=== PATIENT | male | born 1955 | race Caucasian/White ===

== ENCOUNTER → 2016-12-04 | Outpatient (CLI) | payer BC ==
[~2016-12-04] MED LIST: ASPI-558 PO; ATOR20TA PO; FURO40TA5 PO; LISI2.5T2 PO; METO25TA6 PO; PHEN-850 PO; POTA20TA10 PO; SERT-88 PO; TRIA15CR3 TOP; WARF3TAB6 PO; WARF4TAB6 PO
--- NOTE | 2016-12-04 16:10 | DI ---
INDICATION: ITS.REASON: R05 COUGH PROCEDURE: CHEST 2-VIEWS UPRIGHT (PA \T\ LAT) Encounter: Initial COMPARISON: April 14, 2016 FINDINGS: The lungs are clear without evidence of focal abnormal airspace opacity. There is no pleural effusion or pneumothorax. The heart size, mediastinal contours and pulmonary vascularity are stable with prior CABG, cardiac valve replacement and left cardiac pacemaker defibrillator. Metallic foreign bodies again noted in the soft tissues of the neck. IMPRESSION: Stable chest without acute cardiopulmonary disease. .
== END ==
LOC: IMA 15:39
PROVIDERS: ATTEND Family Medicine
DX: R05 Cough (principal)

== ENCOUNTER 2017-01-06 14:47 | Emergency (ER) | payer BC ==
[~2017-01-06] VITALS: Ht 177.8 cm; Wt 136.1 kg
[2017-01-06 14:50] VITALS: Ht 177.8 cm; Wt 136.1 kg
--- OUTSIDE RECORDS SUMMARY | 2017-01-06 14:51 | XMS REPORT | Referral Summary ---
Author Author [facility] Organization [facility] Address Unknown Phone Unavailable Care Team Providers Care Lead Recreation Assistant Name Role Phone Yfn Green Primary Care Physician [phone] Encounter VC Date(s): 05/26/15 - 05/26/15 [facility] [address] [place] [address] [place] [id number]- Discharge Disposition: 01-Home or Self Care Attending Physician: Deshaun Oliver MD Admitting Physician: Deshaun Oliver MD Vital Signs No data available for this section Problem List Condition Effective Dates Status Health Status Informant Benign essential Active hypertension (disorder)(Confirmed ) Pacemaker/defibr(Con 03/2007 Active firmed) Contusion of knee, Active left(Confirmed) Coronary Active arteriosclerosis (disorder)(Confirmed ) CAD (coronary artery Active disease)(Confirmed) History of TIA right Active side weakness(Confirmed) Hypertension(Confirm Active ed) Hypertrophic Active cardiomyopathy(Confi rmed) Patellar bursitis of Active left knee(Confirmed) Mitral valve 2009 Active disease(Confirmed) Obesity(Confirmed) Active patient Staph 2007 Active infection/pacemaker defib(Confirmed) Tobacco Active patient user(Confirmed) Allergies, Adverse Reactions, Alerts Substance Reaction Severity Status niacin SOA Active Medications aspirin 81 mg oral tablet 1 tabs, Oral, Daily, # 90 tabs, 0 Refill(s) Start Date: 07/08/14 Status: Ordered Claritin 10 mg oral tablet 10 mg 1 tabs, Oral, Daily, # 30 tabs, 0 Refill(s), Pharmacy: [facility] # [id number], 1 tabs Oral Daily Start Date: 06/11/15 Status: Ordered fenofibrate 48 mg oral tablet 1 caps, Oral, Daily, # 90 caps, 0 Refill(s) Start Date: 07/08/14 Status: Ordered ferrous sulfate 325 mg (65 mg elemental iron) oral tablet tabs, Oral, Daily, 0 Refill(s) Start Date: 07/08/14 Status: Ordered Fish Oil 1000 mg oral capsule 1 caps, Oral, BID, # 60 caps, 0 Refill(s) Start Date: 07/08/14 Status: Ordered furosemide 40 mg oral tablet 1 tabs, Oral, Daily, 0 Refill(s) Start Date: 07/08/14 Status: Ordered L-Arginine 500 mg oral capsule 1,000 mg 2 caps, Oral, QID, 0 Refill(s) Start Date: 05/30/15 Status: Ordered Lipitor 40 mg oral tablet 1 tabs, Oral, Daily, # 30 tabs, 0 Refill(s) Start Date: 07/08/14 Status: Ordered lisinopril 2.5 mg, Oral, Daily, 0 Refill(s) Start Date: 03/17/15 Status: Ordered Lovenox 100 mg/mL injectable solution 100 mg 1 mL, SubCutaneous, q12hr, # 6 Each, 0 Refill(s), Pharmacy: [facility] #[id number], 1 mL SubCutaneous q12hr Start Date: 05/27/15 Status: Ordered Metoprolol Tartrate 25 mg oral tablet See Instructions, TAKE ONE TABLET BY MOUTH DAILY, # 30 tabs, 1 Refill(s), eRx: [facility] #[id number], TAKE ONE TABLET BY MOUTH DAILY Start Date: 11/23/15 Status: Ordered nitroglycerin 0.4 mg sublingual tablet 1 tabs, SubLingual, q5min, as needed for chest pain, # 100 tabs, 0 Refill(s) Start Date: 07/08/14 Status: Ordered Gabbs 5 mg-325 mg oral tablet 1 tabs, Oral, q6hr, as needed for pain, # 30 tabs, 0 Refill(s) Start Date: 08/10/15 Status: Ordered Norvasc 5 mg oral tablet 1 tabs, Oral, Daily, # 90 tabs, 0 Refill(s) Start Date: 07/08/14 Status: Ordered potassium chloride additive 20 mEq, Oral, Daily, 0 Refill(s) Start Date: 07/08/14 Status: Ordered sertraline 100 mg oral tablet See Instructions, TAKE ONE TABLET BY MOUTH DAILY, # 30 tabs, 2 Refill(s), eRx: [facility] #[id number], TAKE ONE TABLET BY MOUTH DAILY Start Date: 09/14/15 Status: Ordered sertraline 100 mg oral tablet See Instructions, TAKE ONE TABLET BY MOUTH DAILY, # 30 tabs, 3 Refill(s), eRx: [facility] #[id number], TAKE ONE TABLET BY MOUTH DAILY Start Date: 05/18/15 Status: Ordered Vitamin D with Minerals oral tablet 1 tabs, Oral, Daily, # 30 tabs, 0 Refill(s) Start Date: 03/17/15 Status: Ordered warfarin 2 mg oral tablet See Instructions, TAKE TWO TABLETS BY MOUTH DAILY ON SATURDAY, SATURDAY, AND SATURDAY., # 78 tabs, 5 Refill(s), eRx: [facility] #[id number], TAKE TWO TABLETS BY MOUTH DAILY ON SATURDAY, SATURDAY, AND SATURDAY. Start Date: 09/28/15 Status: Ordered Results No data available for this section Immunizations Vaccine Date Refusal Reason influenza virus vaccine, inactivated 05/30/15 influenza virus vaccine, live 06/10/13 influenza virus vaccine, live 05/27/12 pneumococcal 23-polyvalent vaccine 06/07/10 Procedures Procedure Date Related Diagnosis Body Site Colonoscopy, flexible; with biopsy, single or 05/26/15 multiple COLORECTAL CANCER SCREENING; COLONOSCOPY ON 05/26/15 INDIVIDUAL NOT MEETING CRITERIA FOR HIGH RISK1 Cardiac catheterization 03/07/15 Pacemaker battery2 03/07/15 Cardiac catheterization3 08/19/12 CABG - Coronary artery bypass graft4 12/17/08 Mitral valve operation5 12/17/08 Pacemaker 08/19/08 Removal/replacement pacemaker due to Staph 08/2008 Laminectomy/L2-46 2007 Colonoscope/repeat in 10 years 07-07-08/19/06 Replacement/mechanical mitral valve 1Oct2014 colonoscopy with biopsy indicates history of diverticulitis. Repeat in 10 years. 2battery change 18121,2006,2011,2012 41 vessel 5Septal myomectomy, mitral valve replacement 6with decompression and irrigation and debridement 7diverticulosis with polypectomy showing hyperplastic polyp Social History Social History Type Response Smoking Status Former smoker; Type: Cigarettes; Tobacco use per day: 1 Pack1 1Quit in 1995 Assessment and Plan No data available for this section
--- OUTSIDE RECORDS SUMMARY | 2017-01-06 14:51 | XMS REPORT | Referral Summary ---
Author Author [facility] Organization [facility] Address Unknown Phone Unavailable Care Team Providers Care Rn Mds Name Role Phone Yfn Green Primary Care Physician [phone] Encounter VC Date(s): 02/14/15 - 02/14/15 [facility] [address] [place] [address]- Discharge Diagnosis: Chest pain Discharge Diagnosis: CAD (coronary artery disease) Discharge Diagnosis: Hypertension Discharge Diagnosis: Hypertrophic cardiomyopathy Discharge Disposition: 01-Home or Self Care Attending Physician: Alexander Green MD Admitting Physician: Alexander Green MD Vital Signs Most recent to 1 oldest [Reference Range]: Temperature Tympanic 36.6 degC [36.6-38.1 degC] (02/14/15 11:24 AM) Peripheral Pulse 76 bpm Rate [60-100 bpm] (02/14/15 11:24 AM) Respiratory Rate 16 br/min [14-20 br/min] (02/14/15 11:24 AM) Blood Pressure 116/74 mmHg [90-140/60-90 mmHg] (02/14/15 11:24 AM) Problem List Condition Effective Dates Status Health [...] Daily, # 30 tabs, 0 Refill(s), Pharmacy: [facility] # [id number], 1 tabs Oral Daily Start Date: 06/11/15 [...] q12hr, # 6 Each, 0 Refill(s), Pharmacy: [facility] #[id number], 1 mL SubCutaneous q12hr Start Date: 05/27/15 Status: Ordered Metoprolol Tartrate 25 mg oral tablet See Instructions, TAKE ONE TABLET BY MOUTH DAILY, # 30 tabs, 2 Refill(s), eRx: [facility] #[id number], TAKE ONE TABLET BY MOUTH DAILY Start Date: 08/24/15 Status: Ordered nitroglycerin 0.4 mg sublingual tablet 1 tabs, SubLingual, q5min, as needed for chest pain, # 100 tabs, 0 Refill(s) Start Date: 07/08/14 Status: Ordered [place] 5 mg-325 mg oral tablet 1 tabs, Oral, q6hr, as needed for pain, # 30 tabs, 0 Refill(s) Start Date: 08/10/15 Status: Ordered Norvasc 5 mg oral tablet 1 tabs, Oral, Daily, # 90 tabs, 0 Refill(s) Start Date: 07/08/14 Status: Ordered potassium chloride additive 20 mEq, Oral, Daily, 0 Refill(s) Start Date: 07/08/14 Status: Ordered predniSONE 10 mg oral tablet See Instructions, Take 2 daily for 7 days, # 30 Each, 0 Refill(s), Pharmacy: [facility] #[id number], Take 2 daily for 7 days Start Date: 08/10/15 Status: Ordered sertraline 100 mg oral tablet See Instructions, TAKE ONE TABLET BY MOUTH DAILY, # 30 tabs, 3 Refill(s), eRx: [facility] #[id number], TAKE ONE TABLET BY MOUTH DAILY Start Date: 05/18/15 Status: Ordered Vitamin D with Minerals oral tablet 1 tabs, Oral, Daily, # 30 tabs, 0 Refill(s) Start Date: 03/17/15 Status: Ordered warfarin 2 mg oral tablet 2 tabs, Oral, Sat//, takes 3mg tabs also, # 90 tabs, 3 Refill(s), Pharmacy: [facility], 2 tabs Oral Sat//,Instr:takes 3mg tabs also Start Date: 10/05/14 Status: Ordered warfarin 3 mg oral tablet 1 tabs, Oral, Sat///, or as directed by doctor Takes 3mg and 2mg, # 90 tabs, 5 Refill(s), Pharmacy: [facility], 1 tabs Oral Sat//, Instr:or as directed by doctor Takes 3mg and 2mg Start Date: 10/05/14 Status: Ordered Results No data available for this section Immunizations Vaccine Date Refusal Reason influenza virus vaccine, inactivated 05/30/15 influenza virus vaccine, live 06/10/13 influenza virus vaccine, live 05/27/12 pneumococcal 23-polyvalent vaccine 06/07/10 Procedures Procedure Date Related Diagnosis Body Site COLORECTAL CANCER SCREENING; COLONOSCOPY ON 05/26/15 INDIVIDUAL NOT MEETING CRITERIA FOR HIGH RISK1 Cardiac catheterization 03/07/15 Pacemaker battery2 03/07/15 Cardiac catheterization3 08/19/12 CABG - Coronary artery bypass graft4 12/17/08 Mitral valve operation5 12/17/08 Pacemaker 08/19/08 Removal/replacement pacemaker due to Staph 08/2008 Laminectomy/L2-46 2007 Colonoscope/repeat in 10 years 07-07-08/19/06 Replacement/mechanical mitral valve 1October 2014 colonoscopy with biopsy indicates history of diverticulitis. Repeat in 10 years. 2battery change 80306,2005,2011,2012 41 vessel 5Septal myomectomy, mitral valve replacement 6with decompression and irrigation and debridement 7diverticulosis with polypectomy showing hyperplastic polyp Social History Social History Type Response Smoking Status Former smoker; Type: Cigarettes; Tobacco use per day: 1 Pack1 1Quit in 1995 Assessment and Plan Extracted from: Title: Ambulatory Patient Education Author: Alexander Green MD Date: Family Medicine Cardiomyopathy Cardiomyopathy means a disease of the heart muscle. The heart muscle becomes enlarged or stiff. The heart is not able to pump enough blood or deliver enough oxygen to the body. This leads to heart failure and is the number one reason for heart transplants. TYPES OF CARDIOMYOPATHY INCLUDE: DILATED The most common type. The heart muscle is stretched out and weak so there is less blood pumped out. Some causes: Disease of the arteries of the heart (ischemia ). Heart attack with muscle scar. Leaky or damaged valves. After a viral illness. Smoking. High cholesterol. Diabetes or overactive thyroid. Alcohol or drug abuse. High blood pressure. May be reversible. HYPERTROPHIC The heart muscle grows bigger so there is less room for blood in the ventricle, and not enough blood is pumped out. Causes include: Mitral valve leaks. Inherited tendency (from your family). No explanation (idiopathic ). May be a cause of sudden in young athletes with no symptoms. RESTRICTIVE The heart muscle becomes stiff, but not always larger. The heart has to work harder and will get weaker. Abnormal heart beats or rhythm (arrhythmia ) are common. Some causes: Diseases in other parts of the body which may produce abnormal deposits in the heart muscle. Probably not inherited. A result of radiation treatment for cancer. SYMPTOMS OF ALL TYPES: Less able to exercise or tolerate physical activity. Palpitations. Irregular heart beat, heart arrhythmias. Shortness of breath, even at rest. Chest pain. Lightheadedness or fainting. TREATMENT Life-style changes including reducing salt, lowering cholesterol, stop smoking. Manage contributing causes with medications. Medicines to help reduce the fluids in the body. An implanted cardioverter defibrillator (ICD ) to improve heart function and correct arrhythmias. Medications to relax the blood vessels and make it easier for the heart to pump. Drugs that help regulate heart beat and improve heart relaxation, reducing the work of the heart. Myomectomy for patients with hypertrophic cardiomyopathy and severe problems. This is a surgical procedure that removes a portion of the thickened muscle wall in order to improve heart output and provide symptom relief. A heart transplant is an option in carefully applied circumstances. SEEK IMMEDIATE MEDICAL CARE IF: You have severe chest pain, especially if the pain is crushing or pressure- like and spreads to the arms, back, neck, or jaw, or if you have sweating, feeling sick to your stomach (nausea ), or shortness of breath. THIS IS AN EMERGENCY. Do not wait to see if the pain will go away. Get medical help at once. Call your local emergency services (911 in [place] DO NOT drive yourself to the hospital. You develop severe shortness of breath. You begin to cough up bloody sputum. You are unable to sleep because you cannot breathe. You gain weight due to fluid retention. You develop painful swelling in your calf or leg. You feel your heart racing and it does not go away or happens when you are resting. Document Released: 10/18/2005 Document Revised: 10/27/2012 Document Reviewed: [facility] Patient Information 2014 [employer]. No follow up information was provided. Extracted from: Title: Office Visit Note Author: Alexander Green MD Date: 02/14/15 Assessment/Plan CAD (coronary artery disease) I did do an EKG today shows left bundle branch block no obvious acute abnormality. I told him with his worsening chest discomfort and history that he should see Dr. Li and will make an appointment. I think he's probably reasonable to not be working at this point Fairly up-to-date Ordered: Office Visit Level 4 Est 75080 Chest pain certainly with his history further evaluation is warranted. We' ll set up an appointment with his manager paid Ordered: EKG with Interpretation 91941 Office Visit Level 4 Est 52620 Hypertension No change in treatment Ordered: Office Visit Level 4 Est 55684 Hypertrophic cardiomyopathy See above. Ordered: Office Visit Level 4 Est 70710
--- OUTSIDE RECORDS SUMMARY | 2017-01-06 14:51 | XMS REPORT | Referral Summary ---
Author Author [facility] Organization [facility] Address Unknown Phone Unavailable Care Team Providers Care Human Geography Faculty Member Name Role Phone Yfn Green Primary Care Physician [phone] Encounter VC Date(s): 06/14/16 - 06/14/16 [facility] [address] [place] [address]- Discharge Disposition: 01-Home or Self Care Attending Physician: Alexander Green MD Admitting Physician: Alexander Green MD Vital Signs No data available for [...] 0 Refill(s) Start Date: 07/08/14 Status: Ordered atorvastatin 20 mg, Oral, Daily, 0 Refill(s) Start Date: 05/10/16 Status: Ordered furosemide 40 mg oral tablet 40 mg 1 tabs, Oral, BID, 0 Refill(s) Start Date: 07/08/14 Status: Ordered iron 65 mg x3 days of weeek mo,wed, frid iron 65 mg x3 days of weeek mo,wed, frid, 0 Refill(s) Start Date: 05/10/16 Status: Ordered lisinopril 2.5 mg, Oral, Daily, 0 Refill(s) Start Date: 03/17/15 Status: Ordered metoprolol tartrate 50 mg oral tablet 50 mg 1 tabs, Oral, BID, 0 Refill(s) Start Date: 03/27/16 Status: Ordered nitroglycerin 0.4 mg sublingual tablet 1 tabs, SubLingual, q5min, as needed for chest pain, # 100 tabs, 0 Refill(s) Start Date: 07/08/14 Status: Ordered potassium chloride additive 20 mEq, Oral, BID, 0 Refill(s) Start Date: 07/08/14 Status: Ordered sertraline 100 mg oral tablet See Instructions, TAKE ONE TABLET BY MOUTH DAILY, # 30 tabs, eRx: [facility] #[id number], TAKE ONE TABLET BY MOUTH DAILY Start Date: 06/13/16 Status: Ordered triamcinolone 0.1% topical cream 1 ines, Topical, BID, as needed rash, 0 Refill(s) Start Date: 03/27/16 Status: Ordered Vitamin D3 1000 intl units oral tablet 2,000 Intl_Units 2 tabs, Oral, 3x/week, # 30 tabs, 0 Refill(s) Start Date: 03/27/16 Status: Ordered warfarin 2 mg, Oral, Once, 0 Refill(s) Start Date: 05/10/16 Status: Ordered warfarin 4 mg, Oral, Mon/Fri, 0 Refill(s) Start Date: 05/10/16 Status: Ordered warfarin 3 mg, Daily, 0 Refill(s) Start Date: 05/10/16 Status: Ordered Results Coagulation Most recent to 1 oldest [Reference Range]: PT Venous (06/14/16 8:43 AM) INR [0.8-1.2] 2.1 1 *HI* (06/14/16 8:43 AM) 1Result Comment: Normal (no anticoagulant): 0.8 - 1.2 Units Routine Therapeutic Range: 2.0 - 3.0 Units High Risk Therapeutic Range: 2.5 - 3.5 Units Immunizations Vaccine Date Refusal Reason influenza virus vaccine, inactivated 06/14/16 influenza virus vaccine, inactivated 05/30/15 influenza virus vaccine, live 06/10/13 influenza virus vaccine, live 05/27/12 pneumococcal 23-polyvalent vaccine 06/07/10 Procedures Procedure Date Related Diagnosis Body Site Collection of venous blood by venipuncture 06/14/16 Ablation Cardiac Electrophysiology Study1 05/10/16 Cardiac catheterisation, left heart2 03/21/16 COLORECTAL CANCER SCREENING; COLONOSCOPY ON 05/26/15 INDIVIDUAL NOT MEETING CRITERIA FOR HIGH RISK3 Cardiac catheterization 03/07/15 Pacemaker battery4 03/07/15 Cardiac catheterization5 08/19/12 CABG - Coronary artery bypass graft6 12/17/08 Mitral valve operation7 12/17/08 Pacemaker 08/19/08 Removal/replacement pacemaker due to Staph 08/2008 Laminectomy/L2-48 2007 Colonoscope/repeat in 10 years 07-07-08/19/06 Replacement/mechanical mitral valve 1auto-populated from documented surgical case 21. hyperdynamic left ventricle with EF of 75% 2. mild-to-mod elevation of right heart pressures 3. CAD as described with patent graft 4. successful Mynx deployment for hemostasis 3October 2014 colonoscopy with biopsy indicates history of diverticulitis. Repeat in 10 years. 4battery change 41485,2005,2011,2012 61 vessel 7Septal myomectomy, mitral valve replacement 8with decompression and irrigation and debridement 9diverticulosis with polypectomy showing hyperplastic polyp Social History Social History Type Response Smoking Status Former smoker; Type: Cigarettes; Tobacco use per day: 1 Pack1 1Quit in 1995 Assessment and Plan No data available for this section
--- OUTSIDE RECORDS SUMMARY | 2017-01-06 14:51 | XMS REPORT | Referral Summary ---
Author Author [facility], [facility] Care Organization [facility] Address Unknown Phone Unavailable Care Team Providers Care Electronics Research Engineer Name Role Phone Yfn Green Primary Care Physician [phone] Encounter VC Date(s): 06/11/15 - 06/11/15 [facility] [address] [place] [address]- Discharge Disposition: 01-Home or Self Care Attending Physician: Woodrow Borjas MD Admitting Physician: Woodrow Borjas MD Vital Signs Most recent to 1 oldest [Reference Range]: Temperature Tympanic 36.2 degC [36.6-38.1 degC] *LOW* (06/11/15 9:33 AM) Apical Heart Rate 88 bpm [60-100 bpm] (06/11/15 9:33 AM) Blood Pressure 132/74 mmHg [90-140/60-90 mmHg] (06/11/15 9:33 AM) SpO2 97 % (06/11/15 9:33 AM) Problem List Condition Effective Dates Status [...] 2009 Active disease(Confirmed) Obesity(Confirmed) Active patient 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) Tobacco Active patient user(Confirmed) Allergies, Adverse Reactions, Alerts Substance Reaction Severity Status niacin SOA Active Medications aspirin 81 mg oral tablet 1 tabs, Oral, Daily, # 90 tabs, 0 Refill(s) Start Date: 07/08/14 Status: Ordered Claritin 10 mg oral tablet 10 mg 1 tabs, Oral, Daily, # 30 tabs, 0 Refill(s), Pharmacy: [facility] # [id number], 1 tabs Oral Daily Start Date: 06/11/15 [...] q12hr, # 6 Each, 0 Refill(s), Pharmacy: [facility] #[id number], 1 mL SubCutaneous q12hr Start Date: 05/27/15 Status: Ordered metoprolol tartrate 25 mg oral tablet 25 mg 1 tabs, Oral, Daily, # 30 tabs, 3 Refill(s), Pharmacy: [facility] # [id number] Start Date: 04/26/15 Status: Ordered nitroglycerin 0.4 mg sublingual tablet 1 tabs, SubLingual, q5min, as needed for chest pain, # 100 tabs, 0 Refill(s) Start Date: 07/08/14 Status: Ordered [place] 5 mg-325 mg oral tablet 1 tabs, Oral, q6hr, as needed for pain, # 30 tabs, 0 Refill(s) Start Date: 03/23/15 Status: Ordered Norvasc 5 mg oral tablet 1 tabs, Oral, Daily, # 90 tabs, 0 Refill(s) Start Date: 07/08/14 Status: Ordered potassium chloride additive 20 mEq, Oral, Daily, 0 Refill(s) Start Date: 07/08/14 Status: Ordered predniSONE 20 mg oral tablet 20 mg 1 tabs, Oral, Daily, X 5 days, # 5 tabs, 0 Refill(s), Pharmacy: [facility] #[id number], 1 tabs Oral Daily,x5 days Start Date: 06/11/15 Stop Date: 06/16/15 Status: Ordered sertraline 100 mg oral tablet See Instructions, TAKE ONE TABLET BY MOUTH DAILY, # 30 tabs, 3 Refill(s), eRx: [facility] #[id number], TAKE ONE TABLET BY MOUTH DAILY Start [...] 3 mg oral tablet 1 tabs, Oral, Sat/, or as directed by doctor Takes 3mg and 2mg, # 90 tabs, 5 Refill(s), Pharmacy: [facility], 1 tabs Oral Sat/, Instr:or as directed by doctor Takes 3mg [...] 08/2008 Laminectomy/L2-46 2007 Colonoscope/repeat in 10 years 08/19/06 Replacement/mechanical mitral valve 1October 2014 colonoscopy with biopsy indicates history of diverticulitis. Repeat in 10 years. 2battery change 83876,2005,2011,2012 41 vessel 5Septal myomectomy, mitral valve replacement 6with decompression and irrigation and debridement 7diverticulosis with polypectomy showing hyperplastic polyp Social History Social History Type Response Smoking Status Former smoker; Type: Cigarettes; Tobacco use per day: 1 Pack1 1Quit in 1995 Assessment and Plan Extracted from: Title: Ambulatory Patient Education Author: Woodrow Borjas MD Date: Ophthalmology Eye Drops Use eye drops as directed. It may be easier to have someone help you put the drops in your eye. If you are alone, use the following instructions to help you. Wash your hands before putting drops in your eyes. Read the label and look at your medication. Check for any expiration date that may appear on the bottle or tube. Changes of color may be a warning that the medication is old or ineffective. This is especially true if the medication has become brown in color. If you have questions or concerns, call your caregiver. DROPS Tilt your head back with the affected eye uppermost. Gently pull down on your lower lid. Do not pull up on the upper lid. Look up. Place the dropper or bottle just over the edge of the lower lid near the white portion at the bottom of the eye. The goal is to have the drop go into the little sac formed by the lower lid and the bottom of the eye itself. Do not release the drop from a height of several inches over the eye. That will only serve to startle the person receiving the medicine when it lands and forces a blink. Steady your hand in a comfortable manner. An example would be to hold the dropper or bottle between your thumb and index (pointing) finger. Lean your index finger against the brow. Then, slowly and gently squeeze one drop of medication into your eye. Once the medication has been applied, place your finger between the lower eyelid and the nose, pressing firmly against the nose for 510 seconds. This will slow the process of the eye drop entering the small canal that normally drains tears into the nose, and therefore increases the exposure of the medicine to the eye for a few extra seconds. OINTMENTS Look up. Place the tip of the tube just over the edge of the lower lid near the white portion at the bottom of the eye. The goal is to create a line of ointment along the inner surface of the eyelid in the little sac formed by the lower lid and the bottom of the eye itself. Avoid touching the tube tip to your eyeball or eyelid. This avoids contamination of the tube or the medicine in the tube. Once a line of medicine has been created, hold the upper lid up and look down before releasing the upper lid. This will force the ointment to spread over the surface of the eye. Your vision will be very blurry for a few minutes after applying an ointment properly. This is normal and will clear as you continue to blink. For this reason, it is best to apply ointments just before going to sleep, or at a time when you can rest your eyes for 510 minutes after applying the medication. GENERAL Store your medicine in a cool, dry place after each use. If you need a second medication, wait at least two minutes. This helps the first medication to be taken up (absorbed) by the eye. If you have been instructed to use both an eye drop and an eye ointment, always apply the drop first and then the ointment 34 minutes afterward. Never put medications into the eye unless the label reads, "For Ophthalmic Use, " "For Use In Eyes" or "Eye Drops." If you have questions, call your caregiver. Document Released: 11/11/2001 Document Revised: 12/20/2014 Document Reviewed: ExitCare Patient Information 2015 [facility], [facility]. This information is not intended to replace advice given to you by your health care provider. Make sure you discuss any questions you have with your health care provider. No follow up information was provided. Extracted from: Title: Office Visit Note Author: Woodrow Borjas MD Date: 06/11/15 Assessment/Plan Allergic conjunctivitis Trial of claritin 10mg po daily.Prednisone 20mg po daily for five days. Patanol if persisting. Benign essential hypertension (disorder) This issue is stable and appropriate refills, lab, and f/u have been discussed. The patient reports their blood pressure has been stable at home and is not having any significant or related problems. There has been no chest pain, chest pressure, soa/bowen. CAD (coronary artery disease) This issue is stable and appropriate refills, lab, and f/u have been discussed. Mitral valve disease This issue is stable and appropriate refills, lab, and f/ u have been discussed. Pacemaker/defibr This issue is stable and appropriate refills, lab, and f/u have been discussed. Orders: loratadine, 10 mg 1 tabs, Oral, Daily, # 30 tabs, 0 Refill(s), Pharmacy: [facility] #[id number], 1 tabs Oral Daily predniSONE, 20 mg 1 tabs, Oral, Daily, X 5 days, # 5 tabs, 0 Refill(s), Pharmacy: [facility] #[id number], 1 tabs Oral Daily,x5 days
[2017-01-06] MEDS ORDERED: POTA-81 PO ×2 (14:52)
--- OUTSIDE RECORDS SUMMARY | 2017-01-06 14:52 | XMS REPORT | Referral Summary ---
Author Author [facility], [facility] Organization [facility] Address Unknown Phone Unavailable Care Team Providers Care Material Disposition Inspector Name Role Phone Yfn Green Primary Care Physician [phone] Encounter VC Date(s): 05/30/15 - 05/30/15 [facility] [address] [place] [address] Discharge Diagnosis: Benign essential hypertension Discharge Diagnosis: CAD (coronary artery disease) Discharge Diagnosis: Hypertrophic cardiomyopathy Discharge Disposition: 01-Home or Self Care Attending Physician: Alexander Green MD Admitting Physician: Alexander Green MD Vital Signs Most recent to 1 oldest [Reference Range]: Temperature Tympanic 36.3 degC [36.6-38.1 degC] *LOW* (05/30/15 9:16 AM) Peripheral Pulse 76 bpm Rate [60-100 bpm] (05/30/15 9:16 AM) Respiratory Rate 16 br/min [14-20 br/min] (05/30/15 9:16 AM) Blood Pressure 132/80 mmHg [90-140/60-90 mmHg] (05/30/15 9:16 AM) Problem List Condition Effective Dates Status [...] 0 Refill(s) Start Date: 07/08/14 Status: Ordered fenofibrate 48 mg oral tablet [...] q12hr, # 6 Each, 0 Refill(s), Pharmacy: [facility] #[id number], 1 mL SubCutaneous q12hr Start Date: 05/27/15 Status: Ordered metoprolol tartrate 25 mg oral tablet 25 mg 1 tabs, Oral, Daily, # 30 tabs, 3 Refill(s), Pharmacy: [facility] # [id number] Start Date: 04/26/15 Status: Ordered nitroglycerin 0.4 mg sublingual tablet 1 tabs, SubLingual, q5min, as needed for chest pain, # 100 tabs, 0 Refill(s) Start Date: 07/08/14 Status: Ordered [place] 5 mg-325 mg oral tablet 1 tabs, [...] DAILY, # 30 tabs, 3 Refill(s), eRx: [facility] #[id number], TAKE ONE TABLET BY MOUTH DAILY Start [...] 2mg, # 90 tabs, 5 Refill(s), Pharmacy: [facility], 1 tabs Oral Sun///, Instr:or as directed by doctor Takes 3mg and 2mg Start Date: 10/05/14 Status: Ordered Results No data available for this section Immunizations Vaccine Date Refusal Reason influenza virus vaccine, live 06/10/13 influenza virus vaccine, live 05/27/12 pneumococcal 23-polyvalent vaccine 06/07/10 Procedures Procedure Date Related Diagnosis Body Site Cardiac catheterization 03/07/15 Pacemaker battery1 03/07/15 Cardiac catheterization2 08/19/12 CABG - Coronary artery bypass graft3 12/17/08 Mitral valve operation4 12/17/08 Pacemaker 08/19/08 Removal/replacement pacemaker due to Staph 08/2008 Laminectomy/L2-45 2008 Colonoscope/repeat in 10 years 08/19/06 Replacement/mechanical mitral valve 1battery change ,2005,2011,2012 31 vessel 4Septal myomectomy, mitral valve replacement 5with decompression and irrigation and debridement 6diverticulosis with polypectomy showing hyperplastic polyp Social History Social History Type Response Smoking Status Former smoker; Type: Cigarettes; Tobacco use per day: 1 Pack1 1Quit in 1995 Assessment and Plan Extracted from: Title: Office Visit Note Author: Alexander Green MD Date: 05/30/15 Assessment/Plan Atherosclerotic heart disease of [place] coronary artery without angina pectoris , CAD (coronary artery disease) No current signs of ischemia. He continues to follow-up with his shellfish bed worker as well. Recheck here in 3 months. Ordered: Office Visit Level 3 Est 70455 Benign essential hypertension, Essential (primary) hypertension Blood pressures well-controlled no change in current treatment recommended recheck in 3 months. Ordered: Office Visit Level 3 Est 45425 Hypertrophic cardiomyopathy, Other hypertrophic cardiomyopathy Chronic stable continue follow-up with his shellfish bed worker. Follow-up here in 3 months. He is on anticoagulation therapy chronically. We'll see what his INR today shows and make further recommendations from there. Ordered: Office Visit Level 3 Est 60197 Orders: PT
--- OUTSIDE RECORDS SUMMARY | 2017-01-06 14:52 | XMS REPORT | Continuity of Care Document ---
Author Author [facility] Address Unknown Phone Unavailable Allergies Active Description Code Type Severity Reaction Onset Reported/Identified Relationship to Patient Clinical Status Yes niacin NKMA N/A SOA 12/15/2013 Medications Problems Procedures Results Test Result Range Protime (INR) - 06/14/16 08:43 INR 2.1 NA 0.8-1.2 Prothrombin Time Venous seconds Encounters ACCT No. Visit Date/Time Discharge Status Pt. Type Provider Facility Loc./Unit Complaint [id number] 11/03/2013 15:49:00 2013 17:16:00 DIS Emergency [id number] 06/03/2013 20:56:00 2012 23:59:59 CLS Outpatient [id number] 06/03/2013 20:51:00 2012 21:20:00 DIS Emergency
--- OUTSIDE RECORDS SUMMARY | 2017-01-06 14:52 | XMS REPORT | Referral Summary ---
Author Author [facility] Organization [facility] Address Unknown Phone Unavailable Care Team Providers Care Floriculture Teacher Name Role Phone Yfn Green Primary Care Physician [phone] Encounter VC Date(s): 05/23/15 - 05/23/15 [facility] [address] [place] [address] [place] [address] Discharge Disposition: 01-Home or Self Care Attending Physician: Alexander Green MD Admitting Physician: Deshaun Oliver MD Vital [...] 0 Refill(s) Start Date: 07/08/14 Status: Ordered Lipitor 40 mg oral tablet 1 tabs, Oral, Daily, # 30 tabs, 0 Refill(s) Start Date: 07/08/14 Status: Ordered lisinopril 2.5 mg, Oral, Daily, 0 Refill(s) Start Date: 03/17/15 Status: Ordered metoprolol tartrate 25 mg oral tablet 25 mg 1 tabs, Oral, Daily, # 30 tabs, 3 Refill(s), Pharmacy: [facility] # [id number] Start Date: 04/26/15 Status: Ordered nitroglycerin 0.4 mg sublingual tablet 1 tabs, SubLingual, q5min, as needed for chest pain, # 100 tabs, 0 Refill(s) Start Date: 07/08/14 Status: Ordered [place] 5 mg-325 mg oral tablet 1 tabs, [...] DAILY, # 30 tabs, 3 Refill(s), eRx: [facility] #[id number], TAKE ONE TABLET BY MOUTH DAILY Start Date: 05/18/15 Status: Ordered Vitamin D with Minerals oral tablet 1 tabs, Oral, Daily, # 30 tabs, 0 Refill(s) Start Date: 03/17/15 Status: Ordered warfarin 2 mg oral tablet 2 tabs, Oral, Sat//, takes 3mg tabs also, # 90 tabs, 3 Refill(s), Pharmacy: [facility], 2 tabs Oral Sat//,Instr:takes 3mg tabs also Start Date: 10/05/14 Status: Ordered warfarin 3 mg oral tablet 1 tabs, Oral, Sat///, or as directed by doctor Takes 3mg and 2mg, # 90 tabs, 5 Refill(s), Pharmacy: [facility], 1 tabs Oral Sun///Sa, Instr:or as directed by doctor Takes 3mg [...] Removal/replacement pacemaker due to Staph 08/2008 Laminectomy/L2-45 2007 Colonoscope/repeat in 10 years 07-07-08/19/06 Replacement/mechanical mitral valve 1battery change 43573,2005,2011,2012 31 vessel 4Septal myomectomy, mitral valve replacement 5with decompression and irrigation and debridement 6diverticulosis with polypectomy showing hyperplastic polyp Social History Social History Type Response Smoking Status Former smoker; Type: Cigarettes; Tobacco use per day: 1 Pack1 1Quit in 1995 Assessment and Plan No data available for this section
--- OUTSIDE RECORDS SUMMARY | 2017-01-06 14:52 | XMS REPORT | Referral Summary ---
Author Author [facility] Organization [facility] Address Unknown Phone Unavailable Care Team Providers Care Title Closer Name Role Phone Yfn Green Primary Care Physician [phone] Encounter VC Date(s): 05/10/16 - 05/10/16 [facility] [address] [place] [address] [phone] Discharge Diagnosis: Paroxysmal a-fib Discharge Diagnosis: Typical atrial flutter Discharge Disposition: 01-Home or Self Care Attending Physician: Aditya Lund MD Admitting Physician: Aditya Lund MD Vital Signs Most recent to 1 oldest [Reference Range]: Temperature Temporal 36 degC Artery [36.3-37.8 *LOW* degC] (05/10/16 10:00 AM) Peripheral Pulse 74 bpm Rate [60-100 bpm] (05/10/16 1:00 PM) Heart Rate Monitored 74 bpm [60-100 bpm] (05/10/16 10:30 AM) Respiratory Rate 16 br/min [14-20 br/min] (05/10/16 1:00 PM) Blood Pressure 113/69 mmHg [90-140/60-90 mmHg] (05/10/16 1:00 PM) SpO2 94 % (05/10/16 1:00 PM) Problem List Condition Effective Dates Status Health [...] Start Date: 07/08/14 Status: Ordered sertraline 100 mg, Oral, Daily, 0 Refill(s) Start Date: 05/10/16 Status: Ordered triamcinolone 0.1% topical cream 1 [...] Refill(s) Start Date: 05/10/16 Status: Ordered Results Hematology Most recent to 1 oldest [Reference Range]: WBC [4.8-10.8 7.1 10*3/uL 10*3/uL] (05/10/16 6:36 AM) RBC [4.60-6.20] 5.61 (05/10/16 6:36 AM) Hgb [14.0-18.0 14.5 gm/dL gm/dL] (05/10/16 6:36 AM) Hct [42.0-52.0 %] 44.4 % (05/10/16 6:36 AM) MCV [82.0-99.0 fL] 79.1 fL *LOW* (05/10/16 6:36 AM) MCH [27.0-32.0 pg] 25.8 pg *LOW* (05/10/16 6:36 AM) MCHC [32.0-36.0 32.7 gm/dL gm/dL] (05/10/16 6:36 AM) RDW [11.5-14.5 %] 14.7 % *HI* (05/10/16 6:36 AM) Platelet [150-400 137 10*3/uL 10*3/uL] *LOW* (05/10/16 6:36 AM) MPV [9.4-12.3 fL] 8.7 fL *LOW* (05/10/16 6:36 AM) Coagulation Most recent to 1 oldest [Reference Range]: INR [0.9-1.2] 2.2 *HI* (05/10/16 6:36 AM) Chemistry Most recent to 1 oldest [Reference Range]: Sodium Lvl [136-144 139 mEq/L mEq/L] (05/10/16 6:36 AM) Potassium Lvl 4.5 mEq/L [3.6-5.1 mEq/L] (05/10/16 6:36 AM) Chloride [99-109 105 mEq/L mEq/L] (05/10/16 6:36 AM) CO2 [22-32 mEq/L] 28 mEq/L (05/10/16 6:36 AM) AGAP [3-20] 6 (05/10/16 6:36 AM) BUN [4-20 mg/dL] 19 mg/dL (05/10/16 6:36 AM) Glucose Lvl [70-100 94 mg/dL mg/dL] (05/10/16 6:36 AM) Creatinine Lvl 1.20 mg/dL [0.64-1.27 mg/dL] (05/10/16 6:36 AM) eGFR [>60] >60 1 (05/10/16 6:36 AM) Calcium Lvl 8.7 mg/dL [8.6-10.0 mg/dL] (05/10/16 6:36 AM) 1Result Comment: Multiply eGFR results by 1.21 for race. Blood Bank Results Most recent to 1 oldest [Reference Range]: ABO/Rh A POS (05/10/16 6:36 AM) Antibody Screen Tube NEG (05/10/16 6:36 AM) Immunizations Vaccine Date Refusal Reason influenza virus vaccine, inactivated 05/30/15 influenza virus vaccine, live 06/10/13 influenza virus vaccine, live 05/27/12 pneumococcal 23-polyvalent vaccine 06/07/10 Procedures Procedure Date Related Diagnosis Body Site Ablation Cardiac Electrophysiology Study1 05/10/16 Cardiac catheterisation, left heart2 03/21/16 COLORECTAL CANCER SCREENING; COLONOSCOPY ON 05/26/15 INDIVIDUAL NOT MEETING CRITERIA FOR HIGH RISK3 Cardiac catheterization 03/07/15 Pacemaker battery4 03/07/15 Cardiac catheterization5 08/19/12 CABG - Coronary artery bypass graft6 12/17/08 Mitral valve operation7 12/17/08 Pacemaker 08/19/08 Removal/replacement pacemaker due to Staph 08/2008 Laminectomy/L2-48 2007 Colonoscope/repeat in 10 years 08/19/06 Replacement/mechanical mitral valve 1auto-populated from documented surgical case 21. hyperdynamic left ventricle with EF of 75% 2. mild-to-mod elevation of right heart pressures 3. CAD as described with patent graft 4. successful Mynx deployment for hemostasis 3October 2014 colonoscopy with biopsy indicates history of diverticulitis. Repeat in 10 years. 4battery change 65542,2005,2011,2012 61 vessel 7Septal myomectomy, mitral valve replacement 8with decompression and irrigation and debridement 9diverticulosis with polypectomy showing hyperplastic polyp Social History Social History Type Response Smoking Status Former smoker; Type: Cigarettes; Tobacco use per day: 1 Pack1 1Quit in 1995 Assessment and Plan No data available for this section
--- OUTSIDE RECORDS SUMMARY | 2017-01-06 14:52 | XMS REPORT | Referral Summary ---
Author Author [facility], [facility] Organization [facility] Address Unknown Phone Unavailable Care Team Providers Care Technical Sales Representative Name Role Phone Yfn Green Primary Care Physician [phone] Encounter Date(s): 06/19/16 - 06/19/16 [facility] [address] [place] [address]- Discharge Diagnosis: Eczema of both external ears Discharge Diagnosis: Seasonal allergic rhinitis Discharge Diagnosis: Unspecified eustachian tube disorder, bilateral Discharge Diagnosis: Intermittent vertigo Discharge Disposition: 01-Home or Self Care Attending Physician: Isatu Devries APRN Admitting Physician: Isatu Devries APRN Vital Signs Most recent to 1 oldest [Reference Range]: Temperature Oral 36.8 degC [35.8-37.3 degC] (06/19/16 9:28 AM) Peripheral Pulse 84 bpm Rate [60-100 bpm] (06/19/16 9:28 AM) Respiratory Rate 16 br/min [14-20 br/min] (06/19/16 9:28 AM) Blood Pressure 120/80 mmHg [90-140/60-90 mmHg] (06/19/16 9:28 AM) Problem List Condition Effective Dates Status Health Status Informant Benign essential Active hypertension (disorder)(Confirmed ) Pacemaker/defibr(Con 03/2007 Active firmed) Contusion of knee, Active left(Confirmed) Coronary Active arteriosclerosis (disorder)(Confirmed ) CAD (coronary artery Active disease)(Confirmed)1 History of TIA right Active side weakness(Confirmed) Hypertension(Confirm Active ed) Hypertrophic Active cardiomyopathy(Confi rmed) Patellar bursitis of Active left knee(Confirmed) Mitral valve 2009 Active disease(Confirmed) Obesity(Confirmed) Active patient Staph 2007 Active infection/pacemaker defib(Confirmed) Tobacco Active patient user(Confirmed) 1NSTEMI February 2016 Allergies, Adverse Reactions, Alerts Substance Reaction Severity Status niacin SOA Active Medications aspirin 81 mg oral tablet 1 tabs, Oral, Daily, # 90 tabs, 0 Refill(s) Start Date: 07/08/14 Status: Ordered atorvastatin 20 mg, Oral, Daily, 0 Refill(s) Start Date: 05/10/16 Status: Ordered Claritin 10 mg oral tablet 10 mg 1 tabs, Oral, Daily, # 30 tabs, 0 Refill(s), other reason (Rx) Start Date: 06/19/16 Status: Ordered furosemide 40 mg oral tablet 40 mg 1 tabs, Oral, BID, 0 Refill(s) Start Date: 07/08/14 Status: Ordered iron 65 mg x3 days of weeek ,sat, satd iron 65 mg x3 days of weeek mo,sat, satd, 0 Refill(s) Start Date: 05/10/16 Status: Ordered [...] predniSONE 10 mg oral tablet See Instructions, 4 tabs dly 3 days, 3 tabs dly 3 days, 2 tabs dly 3 days, 2 tabs dly 3 days, one tab dly 3 days then stop. with food, # 30 tabs, 0 Refill (s), 4 tabs dly 3 days, 3 tabs dly 3 days, 2 tabs dly 3 days, 2 tabs dly 3 days, one ta... Start Date: 06/19/16 Stop Date: 07/17/16 Status: Ordered sertraline 100 mg oral tablet See Instructions, TAKE ONE TABLET BY MOUTH DAILY, # 30 tabs, eRx: [facility] #[id number], TAKE ONE TABLET BY MOUTH DAILY Start [...] Refill(s) Start Date: 05/10/16 Status: Ordered Results No data available for [...] Staph 08/2008 Laminectomy/L2-48 2007 Colonoscope/repeat in 10 08/19/06 Replacement/mechanical mitral valve 1auto-populated from documented surgical case 21. hyperdynamic left ventricle with EF of 75% 2. mild-to-mod elevation of right heart pressures 3. CAD as described with patent graft 4. successful Mynx deployment for hemostasis 3Oct2014 colonoscopy with biopsy indicates history of diverticulitis. Repeat in 10 years. 4battery change 97367,2006,2011,2012 61 vessel 7Septal myomectomy, mitral valve replacement 8with decompression and irrigation and debridement 9diverticulosis with polypectomy showing hyperplastic polyp Social History Social History Type Response Smoking Status Former smoker; Type: Cigarettes; Tobacco use per day: 1 Pack1 1Quit in 1995 Assessment and Plan Extracted from: Title: Office Visit Note-ear issues Author: Isatu Devries APRN Date: 06/19/16 Assessment/Plan 1.Unspecified eustachian tube disorder, bilateral Patient counseled regarding diagnosis, natural history, pathophysiology, typical treatment, and expected results. Questions and concerns answered. Prednisone taper. Side effects discussed. Take with food. Let us know if symptoms fail to improve. 2.Eczema of both external ears Recommend [id number] hydrocortisone cream to the external earstwice a day as needed. 3.Seasonal allergic rhinitis Recommend [id number] Claritin 10 mg daily. Avoid decongestants. 4.Intermittent vertigo Suspect related to pressure in the ears. Offered meclizine. Patient denies need. Mild and intermittent. Let us know but does not improve.
--- OUTSIDE RECORDS SUMMARY | 2017-01-06 14:52 | XMS REPORT | Referral Summary ---
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 Role Phone Yfn Green Primary Care Physician [phone] Encounter VC Date(s): 03/17/15 - 03/17/15 [facility] [address] [place] [address] Discharge Diagnosis: CAD (coronary artery disease) Discharge Diagnosis: Benign essential hypertension Discharge Diagnosis: Hypertrophic cardiomyopathy Discharge Disposition: 01-Home or Self Care Attending Physician: Alexander Green MD Admitting Physician: Alexander Green MD Vital Signs Most recent to 1 oldest [Reference Range]: Peripheral Pulse 70 bpm Rate [60-100 bpm] (03/17/15 11:25 AM) Blood Pressure 136/72 mmHg [90-140/60-90 mmHg] (03/17/15 11:25 AM) Problem List Condition Effective Dates Status [...] Daily, # 30 tabs, 0 Refill(s), Pharmacy: [facility] # [id number], 1 tabs Oral Daily Start Date: 06/11/15 [...] q12hr, # 6 Each, 0 Refill(s), Pharmacy: [facility] #[id number], 1 mL SubCutaneous q12hr Start Date: 05/27/15 Status: Ordered Metoprolol Tartrate 25 mg oral tablet See Instructions, TAKE ONE TABLET BY MOUTH DAILY, # 30 tabs, 2 Refill(s), eRx: [facility] #[id number], TAKE ONE TABLET BY MOUTH DAILY Start Date: 08/24/15 Status: Ordered nitroglycerin 0.4 mg sublingual tablet 1 tabs, SubLingual, q5min, as needed for chest pain, # 100 tabs, 0 Refill(s) Start Date: 07/08/14 Status: Ordered [place] 5 mg-325 mg oral tablet 1 tabs, [...] DAILY, # 30 tabs, 2 Refill(s), eRx: [facility] #[id number], TAKE ONE TABLET BY MOUTH DAILY Start Date: 09/14/15 Status: Ordered sertraline 100 mg oral tablet See Instructions, TAKE ONE TABLET BY MOUTH DAILY, # 30 tabs, 3 Refill(s), eRx: [facility] #[id number], TAKE ONE TABLET BY MOUTH DAILY Start Date: 05/18/15 Status: Ordered Vitamin D with Minerals oral tablet 1 tabs, Oral, Daily, # 30 tabs, 0 Refill(s) Start Date: 03/17/15 Status: Ordered warfarin 3 mg oral tablet See Instructions, TAKE ONE TABLET BY MOUTH DAILY ON SATURDAY, SATURDAY, SATURDAY, AND SATURDAY, # 90 tabs, 4 Refill(s), eRx: [facility] #[id number], TAKE ONE TABLET BY MOUTH DAILY ON SATURDAY, SATURDAY, SATURDAY, AND SATURDAY Start Date: 09/07/15 Status: Ordered Results Coagulation Most recent to 1 oldest [Reference Range]: INR [0.8-1.2] 1.8 1 *HI* (03/17/15 12:05 PM) 1Result Comment: Normal (no anticoagulant): 0.8 - [...] INDIVIDUAL NOT MEETING CRITERIA FOR HIGH RISK1 Collection of venous blood by venipuncture 03/17/15 Cardiac catheterization 03/07/15 Pacemaker battery2 03/07/15 Cardiac catheterization3 08/19/12 CABG - Coronary artery bypass graft4 12/17/08 Mitral valve operation5 12/17/08 Pacemaker 08/19/08 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 Repeat in 10 years. 2battery change 40627,2005,2011,2012 41 vessel 5Septal myomectomy, mitral valve replacement 6with decompression and irrigation and debridement 7diverticulosis with polypectomy showing hyperplastic polyp Social History Social History Type Response Smoking Status Former smoker; Type: Cigarettes; Tobacco use per day: 1 Pack1 1Quit in 1995 Assessment and Plan Extracted from: Title: Office Visit Note Author: Alexander Green MD Date: 03/17/15 Assessment/Plan Benign essential hypertension Blood pressure looks good no change in current medications. Ordered: Office Visit Level 3 Est 12516 CAD (coronary artery disease) Recent Note showed no new blockages. Change in current treatment. INR scheduled for today. Ordered: Office Visit Level 3 Est 32655 PT Hypertrophic cardiomyopathy Review continue current medications recheck in 1 month. Ordered: Office Visit Level 3 Est 96751
--- OUTSIDE RECORDS SUMMARY | 2017-01-06 14:52 | XMS REPORT | Referral Summary ---
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 Name Role Phone Yfn Green Primary Care Physician [phone] Encounter VC Date(s): 03/23/15 - 03/23/15 [facility] [address] [place] [address]- Discharge Diagnosis: Back pain Discharge Disposition: 01-Home or Self Care Attending Physician: Alexander Green MD Admitting Physician: Alexander Green MD Vital Signs Most recent to 1 oldest [Reference Range]: Temperature Tympanic 36.6 degC [36.6-38.1 degC] (03/23/15 2:02 PM) Peripheral Pulse 16 bpm Rate [60-100 bpm] *LOW* (03/23/15 2:02 PM) Blood Pressure 112/62 mmHg [90-140/60-90 mmHg] (03/23/15 2:02 PM) Problem List Condition Effective Dates Status [...] Daily, # 30 tabs, 0 Refill(s), Pharmacy: [facility] # [id number], 1 tabs Oral Daily Start Date: 06/11/15 [...] q12hr, # 6 Each, 0 Refill(s), Pharmacy: [facility] #[id number], 1 mL SubCutaneous q12hr Start Date: 05/27/15 Status: Ordered Metoprolol Tartrate 25 mg oral tablet See Instructions, TAKE ONE TABLET BY MOUTH DAILY, # 30 tabs, 2 Refill(s), eRx: [facility] #[id number], TAKE ONE TABLET BY MOUTH DAILY Start Date: 08/24/15 Status: Ordered nitroglycerin 0.4 mg sublingual tablet 1 tabs, SubLingual, q5min, as needed for chest pain, # 100 tabs, 0 Refill(s) Start Date: 07/08/14 Status: Ordered [place] 5 mg-325 mg oral tablet 1 tabs, [...] DAILY, # 30 tabs, 2 Refill(s), eRx: [facility] #[id number], TAKE ONE TABLET BY MOUTH DAILY Start Date: 09/14/15 Status: Ordered sertraline 100 mg oral tablet See Instructions, TAKE ONE TABLET BY MOUTH DAILY, # 30 tabs, 3 Refill(s), eRx: [facility] #[id number], TAKE ONE TABLET BY MOUTH DAILY Start Date: 05/18/15 Status: Ordered Vitamin D with Minerals oral tablet 1 tabs, Oral, Daily, # 30 tabs, 0 Refill(s) Start Date: 03/17/15 Status: Ordered warfarin 2 mg oral tablet See Instructions, TAKE TWO TABLETS BY MOUTH DAILY ON SATURDAY, SATURDAY, AND SATURDAY., # 78 tabs, 5 Refill(s), eRx: [facility] #[id number], TAKE TWO TABLETS BY MOUTH DAILY ON SATURDAY, SATURDAY, AND SATURDAY. Start Date: 09/28/15 Status: Ordered Results Urinalysis Most recent to 1 oldest [Reference Range]: UA Color Yellow (03/23/15 2:00 PM) UA Appear Clear (03/23/15 2:00 PM) UA pH [5.0-8.0] 5.5 (03/23/15 2:00 PM) UA Leuk Est Negative [Negative] (03/23/15 2:00 PM) UA Nitrite Negative [Negative] (03/23/15 2:00 PM) UA Protein Negative [Negative] (03/23/15 2:00 PM) UA Glucose Negative [Negative] (03/23/15 2:00 PM) UA Ketones Negative [Negative] (03/23/15 2:00 PM) UA Urobilinogen 0.2 mg/dL (03/23/15 2:00 PM) UA Bili [Negative] Negative (03/23/15 2:00 PM) UA Blood Trace *ABN* (03/23/15 2:00 PM) UA Spec Grav 1.015 [1.003-1.030] (03/23/15 2:00 PM) Type Clean Catch (03/23/15 2:00 PM) Immunizations Vaccine Date Refusal Reason influenza virus [...] diverticulitis. Repeat in 10 years. 2battery change 11116,2005,2011,2012 41 vessel 5Septal myomectomy, mitral valve replacement 6with decompression and irrigation and debridement 7diverticulosis with polypectomy showing hyperplastic polyp Social History Social History Type Response Smoking Status Former smoker; Type: Cigarettes; Tobacco use per day: 1 Pack1 1Quit in 1995 Assessment and Plan Extracted from: Title: Office Visit Note Author: Alexander Green MD Date: 03/23/15 Assessment/Plan Back pain I think this is probably a costochondritis. However with his previous history of kidney stones and with a trace of blood in the urine I've recommended CT urography for further evaluation. I encouraged him to increase his fluid intake. I wrote for some hydrocodone for pain. We'll see what the CT shows and make further recommendations from there. Ordered: Office Visit Level 3 Est 35121 Orders: HYDROcodone-acetaminophen, 1 tabs, Oral, q6hr, as needed for pain, # 30 tabs, 0 Refill(s)
--- OUTSIDE RECORDS SUMMARY | 2017-01-06 14:52 | XMS REPORT | Continuity of Care Document ---
Author Author [facility] Organization [facility] Address Unknown Phone Unavailable Support Name Relationship Address Phone KEVIN CROOKS MD Caregiver [facility] [address] [place] [address] Unavailable HAYDEE BURROWS MD Caregiver [address], [place] [phone] SANTANAIMELDA GRAY Next Of Kin [address] [place] [address] Insurance Providers Payer Name Policy Number Subscriber Name Relationship [employer] Other [id number] Debbie Santana 19 Self Problems Medical Problems Problem Onset Date Status Bursitis of left knee Unknown Active Medications Medication Dose Route Sig Days/Qty Instructions Order Date Discontinued Date Status Ibuprofen 200 Mg PO 12/08/08 04/15/10 Discontinued Aspirin 81 Mg PO DAILY 04/15/10 Active Carvedilol 6.25 Mg PO TWICE A DAY 05/08/09 04/15/10 Discontinued [place]-3 Fatty Acids 2,000 Mg PO TWICE A DAY 04/15/10 Active Clopidogrel Bisulfate 75 Mg PO 12/08/08 05/08/09 Discontinued Pantoprazole Sodium 40 Mg PO DAILY 04/15/10 04/06/12 Discontinued Verapamil Hcl 240 Mg PO 04/15/10 08/11/10 Discontinued Ezetimibe/Simvastatin 1 Tab PO 04/15/10 08/11/10 Discontinued Bupropion Hcl 150 Mg PO DAILY 04/15/10 10/19/12 Discontinued Warfarin Sodium 2 Mg PO DAILY 04/15/10 08/11/10 Discontinued Digoxin 125 Mcg PO BEDTIME 04/15/10 08/11/10 Discontinued Furosemide 40 Mg PO DAILY AM 04/15/10 Active Amiodarone Hcl 200 Mg PO TWICE A DAY 05/08/09 04/15/10 Discontinued Potassium Chloride 2 Cap PO TWICE A DAY 04/15/10 Active Amlodipine Besylate DAILY 08/11/10 Active Simvastatin 20 Mg PO DAILY 04/06/12 10/19/12 Discontinued Nebivolol Hcl 2.5 Mg PO DAILY 04/06/12 Active Warfarin Sodium 4 Mg PO EVERY OTHER DAY 10/19/12 Active Sertraline Hcl 100 Mg PO DAILY 10/19/12 Active Atorvastatin Calcium 20 Mg PO DAILY 10/19/12 Active Ferrous Sulfate 475 Mg PO DAILY 10/19/12 Active Triamcinolone Acetonide 15 Gm TP NEEDED 10/19/12 Active Prednisone 20 Mg PO DAILY 5 Qty 07/10/14 Active Phenazopyridine HCl 200 Mg PO AFTER MEALS Take 1 tablet, by mouth, 3 times a day after meals. 07/10/14 Active Fenofibrate 54 Mg PO DAILY 07/10/14 Active Clopidogrel Bisulfate 1 Tab PO DAILY 07/10/14 Active Cholecalciferol (Vitamin D3) 2,000 Unit PO DAILY 07/10/14 Active Social History Social History Problem Response Recorded Date/Time Smoking Status Former smoker 07/10/2014 7:54pm When did patient STOP smoking? 20 YEARS AGO 07/10/2014 7:54pm Hx Substance Use No 10/19/2012 12:24pm Hx Alcohol Use Y OCCAS 07/10/2014 7:54pm Query Response Start Date Stop Date Smoking Status Never smoker Hospital Discharge Instructions No hospital discharge instructions. Plan of Care No plan of care. Functional Status Query Response Date Recorded Physical Hygiene Self July 10, 2014 7:54pm Disabilities None July 10, 2014 7:54pm Devices Used None July 10, 2014 7:54pm Dressing Self July 10, 2014 7:54pm Ambulation Self July 10, 2014 7:54pm Diet Self July 10, 2014 7:54pm Mental Status Alert Oriented July 10, 2014 7:54pm Disabilities None July 10, 2014 7:54pm Devices Used None July 10, 2014 7:54pm Physical Hygiene Self July 10, 2014 7:54pm Dressing Self July 10, 2014 7:54pm Ambulation Self July 10, 2014 7:54pm Diet Self July 10, 2014 7:54pm Allergies, Adverse Reactions, Alerts Allergen Type Severity Reaction Status Last Updated venlafaxine HCl Allergy Unknown Active 12/26/12 Niacin Adverse Reaction Intermediate NAUSEA/VOMITING, RASH Active 10/19/12 Metoprolol Allergy Intermediate RASH Active 10/19/12 Immunizations Name Given Type Hx Influenza Vaccination Y MAY 2014 Historical Hx Pneumococcal Vaccination No Historical Hx Influenza Vaccination Y MAY 2014 Historical Vital Signs Acute Vital Signs Vital Response Date/Time Temperature (Fahrenheit) 97.8 deg F (96.8 - 99.1) Temperature (Calculated Celsius) 36.49237 degrees C (36.0 - 37.3) Pulse Rate (adult) 83 bpm (60 - 100) Respiratory Rate 20 breaths/min (10 - 20) O2 Sat by Pulse Oximetry 94 % (90 - 100) Blood Pressure 109/53 mm Hg Height 5 ft 10 in Weight 283 lb Body Mass Index 40.0 kg/m^2 Results Test Source Date Result Interp. Ref. Range Comments Activated Partial Thromboplast Time October 19, 2012 12:15pm 35.0 SEC N 24 -36 Alanine Aminotransferase (ALT/SGPT) October 19, 2012 12:15pm 87 U/L H 21- 72 Albumin October 19, 2012 12:15pm 4.0 G/DL N 3.5-5.0 Albumin/Globulin Ratio October 19, 2012 12:15pm 1.7 RATIO N 1.1-2.2 Alkaline Phosphatase October 19, 2012 12:15pm 84 U/L N 38-126 Amylase Level May 08, 2008 4:25pm 52 U/L N 30-110 Anion Gap October 19, 2012 12:15pm 9 MEQ/L N 5-15 Aspartate Amino Transf (AST/SGOT) October 19, 2012 12:15pm 50 U/L N 17-59 B-Type Natriuretic Peptide April 15, 2010 12:00pm 218 PG/ML H 15-100 BUN/Creatinine Ratio October 19, 2012 12:15pm 17 RATIO N 6-26 Band Neutrophils # December 08, 2008 10:46am 0.0 T/MM3 - Band Neutrophils % December 08, 2008 10:46am 0.0 % N 0-6 Basophils # (Auto) October 19, 2012 12:15pm 0.0 T/MM3 N 0-0.2 Basophils # (Manual) May 08, 2009 3:14pm 0.0 T/MM3 N 0-0.2 Basophils % (Manual) May 08, 2009 3:14pm 0.3 % N 0-2 Basophils (%) (Auto) October 19, 2012 12:15pm 0.4 % N 0-2 Blood Urea Nitrogen October 19, 2012 12:15pm 17.0 MG/DL N 9-20 C-Reactive Protein July 30, 2008 2:15pm < 3.0 MG/L 0-9 Calcium Level October 19, 2012 12:15pm 8.3 MG/DL L 8.4-10.2 Calculated Osmolality October 19, 2012 12:15pm 269 MOSM/KG N 261-280 Carbon Dioxide Level October 19, 2012 12:15pm 26 MEQ/L N 22-30 Chloride Level October 19, 2012 12:15pm 104 MEQ/L N 98-107 Conjugated Bilirubin October 19, 2012 12:15pm 0.00 MG/DL N 0.00-0.30 Creatine Kinase MB May 09, 2008 4:40am 3.1 NG/ML N 0-3.4 Creatinine October 19, 2012 12:15pm 1.0 MG/DL N 0.8-1.5 Differential Total Cells Counted May 08, 2008 4:25pm 100 % - Digoxin Level April 15, 2010 12:00pm < 0.4 NG/ML L 0.8-2.0 Eosinophils # (Auto) October 19, 2012 12:15pm 0.2 T/MM3 N 0-0.5 Eosinophils # (Manual) May 08, 2009 3:14pm 0.2 T/MM3 N 0-0.5 Eosinophils % (Manual) May 08, 2009 3:14pm 1.8 % N 0-4 Eosinophils (%) (Auto) October 19, 2012 12:15pm 2.1 % N 0-4 Erythrocyte Sedimentation Rate July 30, 2008 2:15pm 5 MM/HR - Globulin October 19, 2012 12:15pm 2.4 G/DL N 2.4-3.6 Glucose Level October 19, 2012 12:15pm 78 MG/DL N 75-110 Hematocrit October 19, 2012 12:15pm 50.1 % N 41-53 Hemoglobin October 19, 2012 12:15pm 17.5 GM/DL N 13.5-17.5 Lipase May 08, 2008 4:25pm 37 U/L N 23-300 Lymphocytes # (Auto) October 19, 2012 12:15pm 0.9 T/MM3 L 1-4.8 Lymphocytes # (Manual) May 08, 2009 3:14pm 1.1 T/MM3 N 1-4.8 Lymphocytes % (Manual) May 08, 2009 3:14pm 9.9 % L 23-45 Lymphocytes (%) (Auto) October 19, 2012 12:15pm 11.9 % L 23-45 Mean Corpuscular Hemoglobin October 19, 2012 12:15pm 28.2 UUG N 26-34 Mean Corpuscular Hemoglobin Concent October 19, 2012 12:15pm 34.9 GM/DL N 31-37 Mean Corpuscular Volume October 19, 2012 12:15pm 80.8 UM3 N 80-100 Mean Platelet Volume October 19, 2012 12:15pm 8.4 UM3 L 9.4-12.4 Monocytes # (Auto) October 19, 2012 12:15pm 0.6 T/MM3 N 0-0.8 Monocytes # (Manual) May 08, 2009 3:14pm 1.1 T/MM3 H 0-0.8 Monocytes % (Manual) May 08, 2009 3:14pm 10.2 % H 0-9.0 Monocytes (%) (Auto) October 19, 2012 12:15pm 8.5 % N 0-9.0 Neutrophils # (Auto) October 19, 2012 12:15pm 5.8 T/MM3 N 1.8-7.7 Neutrophils # (Manual) May 08, 2009 3:14pm 8.3 T/MM3 H 1.8-7.7 Neutrophils % (Manual) May 08, 2009 3:14pm 77.8 % H 33-66 Neutrophils (%) (Auto) October 19, 2012 12:15pm 76.7 % H 33-66 Platelet Count October 19, 2012 12:15pm 171 T/MM3 N 130-400 Potassium Level October 19, 2012 12:15pm 4.3 MEQ/L N 3.6-5 Prothromb Time International Ratio October 19, 2012 12:15pm 2.47 H 0.86- 1.10 THERAPUTIC RANGE=2.00-3.00 FOR ANTI-THROMBOSIS THERAPUTIC RANGE=2.50- 3.50 FOR IMPLANTED VALVE RDW Standard Deviation October 19, 2012 12:15pm 40.9 FL N 36.9-50.2 Red Blood Count October 19, 2012 12:15pm 6.20 M/MM3 H 4.50-5.90 Sodium Level October 19, 2012 12:15pm 139 MEQ/L N 134-144 Total Bilirubin October 19, 2012 12:15pm 0.90 MG/DL N 0.20-1.30 Total Creatine Kinase May 09, 2008 4:40am 603 U/L DH 55-170 Total Protein October 19, 2012 12:15pm 6.4 G/DL N 6.3-8.2 Troponin I October 19, 2012 12:15pm 0.032 ng/ml N 0-0.12 Unconjugated Bilirubin October 19, 2012 12:15pm 0.70 MG/DL N 0.00-1.10 Urine Bacteria May 08, 2009 3:26pm Trace - Has specimen been collected/obtained? Y Urine Bilirubin April 06, 2012 6:00pm Negative - COMMENT patient taking pyridiumHas specimen been collected/obtained? Y Urine Blood April 06, 2012 6:00pm Inconcl due to color - COMMENT patient taking pyridiumHas specimen been collected/obtained? Y Urine Collection Type April 06, 2012 6:00pm Voided - COMMENT patient taking pyridiumHas specimen been collected/obtained? Y Urine Color April 06, 2012 6:00pm Yellow - COMMENT patient taking pyridiumHas specimen been collected/obtained? Y Urine Culture Indicated April 06, 2012 6:00pm Cult not indicated - COMMENT patient taking pyridiumHas specimen been collected/obtained? Y Urine Glucose (UA) April 06, 2012 6:00pm Negative - COMMENT patient taking pyridiumHas specimen been collected/obtained? Y Urine Hyaline Casts May 08, 2008 9:20pm 1-3 /LPF - Has specimen been collected/obtained? Y Urine Ketones April 06, 2012 6:00pm Negative - COMMENT patient taking pyridiumHas specimen been collected/obtained? Y Urine Leukocyte Esterase April 06, 2012 6:00pm Negative - COMMENT patient taking pyridiumHas specimen been collected/obtained? Y Urine Mucus August 11, 2010 8:46am Present - Has specimen been collected/obtained? Y Urine Nitrite April 06, 2012 6:00pm Positive H - COMMENT patient taking pyridiumHas specimen been collected/obtained? Y Urine Protein April 06, 2012 6:00pm Negative - COMMENT patient taking pyridiumHas specimen been collected/obtained? Y Urine RBC April 06, 2012 6:00pm 5-10 /HPF H - COMMENT patient taking pyridiumHas specimen been collected/obtained? Y Urine Specific [place] April 06, 2012 6:00pm 1.020 - COMMENT patient taking pyridiumHas specimen been collected/obtained? Y Urine Squamous Epithelial Cells August 11, 2010 8:46am Few - Has specimen been collected/obtained? Y Urine Turbidity April 06, 2012 6:00pm Clear - COMMENT patient taking pyridiumHas specimen been collected/obtained? Y Urine Urobilinogen April 06, 2012 6:00pm 8 EU/DL H - COMMENT patient taking pyridiumHas specimen been collected/obtained? Y Urine WBC April 06, 2012 6:00pm None seen /HPF - COMMENT patient taking pyridiumHas specimen been collected/obtained? Y Urine pH April 06, 2012 6:00pm 6.0 - COMMENT patient taking pyridiumHas specimen been collected/obtained? Y White Blood Count October 19, 2012 12:15pm 7.6 T/MM3 N 4.5-11.0 EKG December 08, 2008 12:53pm Complete - Glomerular Filtration Rate Calc October 19, 2012 12:15pm 77 - Immature Granulocyte # (Auto) October 19, 2012 12:15pm 0.03 T/MM3 N 0.00- 0.03 Immature Granulocyte % (Auto) October 19, 2012 12:15pm 0.4 % N 0.0-0.5 RF-Cmh-W-Type Natriuretic Peptide October 19, 2012 12:15pm 605 PG/ML H 0- 175 Rule in cut points: <50 years old=450; 50-75 years old=900; >75 years old=1800; When utilizing ProBNP rule-in cut points, adjustment for impaired renal function is typically not required. Blood Culture Blood May 09, 2008 6:05am NO GROWTH AFTER 5 DAYS Procedures No known history of procedures. Encounters Encounter Location Date/Time Departed Emergency Room [facility] 07/10/14 7:38pm Recent Diagnosis
--- OUTSIDE RECORDS SUMMARY | 2017-01-06 14:52 | XMS REPORT | Referral Summary ---
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 Name Role Phone Yfn Green Primary Care Physician [phone] Encounter VC Date(s): 09/22/15 - 09/22/15 [facility] [address] [place] [id number] Discharge Diagnosis: Generalized OA Discharge Diagnosis: CAD (coronary artery disease) Discharge Diagnosis: Benign essential hypertension Discharge Diagnosis: Hypertrophic cardiomyopathy Discharge Disposition: 01-Home or Self Care Attending Physician: Alexander Green MD Admitting Physician: Alexander Green MD Vital Signs Most recent to 1 oldest [Reference Range]: Temperature Tympanic 36.8 degC [36.6-38.1 degC] (09/22/15 8:55 AM) Peripheral Pulse 68 bpm Rate [60-100 bpm] (09/22/15 8:55 AM) Respiratory Rate 18 br/min [14-20 br/min] (09/22/15 8:55 AM) Blood Pressure 124/80 mmHg [90-140/60-90 mmHg] (09/22/15 8:55 AM) Problem List Condition Effective Dates Status [...] Daily, # 30 tabs, 0 Refill(s), Pharmacy: [facility] # [id number], 1 tabs Oral Daily Start Date: 06/11/15 [...] q12hr, # 6 Each, 0 Refill(s), Pharmacy: [facility] #[id number], 1 mL SubCutaneous q12hr Start Date: 05/27/15 Status: Ordered Metoprolol Tartrate 25 mg oral tablet See Instructions, TAKE ONE TABLET BY MOUTH DAILY, # 30 tabs, 2 Refill(s), eRx: [facility] #[id number], TAKE ONE TABLET BY MOUTH DAILY Start Date: 08/24/15 Status: Ordered nitroglycerin 0.4 mg sublingual tablet 1 tabs, SubLingual, q5min, as needed for chest pain, # 100 tabs, 0 Refill(s) Start Date: 07/08/14 Status: Ordered Phil[place] 5 mg-325 mg oral tablet 1 tabs, [...] DAILY, # 30 tabs, 2 Refill(s), eRx: [facility] #[id number], TAKE ONE TABLET BY MOUTH DAILY Start Date: 09/14/15 Status: Ordered sertraline 100 mg oral tablet See Instructions, TAKE ONE TABLET BY MOUTH DAILY, # 30 tabs, 3 Refill(s), eRx: [facility] #[id number], TAKE ONE TABLET BY MOUTH DAILY Start Date: 05/18/15 Status: Ordered Vitamin D with Minerals oral tablet 1 tabs, Oral, Daily, # 30 tabs, 0 Refill(s) Start Date: 03/17/15 Status: Ordered warfarin 3 mg oral tablet See Instructions, TAKE ONE TABLET BY MOUTH DAILY ON SATURDAY, SATURDAY, SATURDAY, AND SATURDAY, # 90 tabs, 4 Refill(s), eRx: [facility] #[id number], TAKE ONE TABLET BY MOUTH DAILY ON SATURDAY, SATURDAY, SATURDAY, AND SATURDAY Start Date: 09/07/15 Status: Ordered Results Chemistry Most recent to 1 oldest [Reference Range]: Sodium Lvl [135-144 140 mEq/L mEq/L] (09/22/15 9:35 AM) Potassium Lvl 4.3 mEq/L [3.5-5.2 mEq/L] (09/22/15 9:35 AM) Chloride [99-111 102 mEq/L mEq/L] (09/22/15 9:35 AM) CO2 [23-31 mEq/L] 28 mEq/L (09/22/15 9:35 AM) AGAP [3-20] 10 (09/22/15 9:35 AM) BUN [8-26 mg/dL] 18 mg/dL (09/22/15 9:35 AM) Glucose Lvl [70-99 83 mg/dL mg/dL] (09/22/15 9:35 AM) Creatinine Lvl 1.25 mg/dL [0.72-1.25 mg/dL] (09/22/15 9:35 AM) eGFR [>60 mL/min] 59 mL/min 1 *ABN* (09/22/15 9:35 AM) Calcium Lvl 9.4 mg/dL [8.9-10.5 mg/dL] (09/22/15 9:35 AM) Albumin Lvl [3.5-5.0 4.4 gm/dL gm/dL] (09/22/15 9:35 AM) Total Protein 6.9 gm/dL [6.2-8.1 gm/dL] (09/22/15 9:35 AM) Globulin [1.8-4.0 2.5 gm/dL gm/dL] (09/22/15 9:35 AM) ALT [0-55 U/L] 47 U/L (09/22/15 9:35 AM) AST [5-34 U/L] 36 U/L *HI* (09/22/15 9:35 AM) Alk Phos [40-150 60 U/L U/L] (09/22/15 9:35 AM) Bili Total [0.2-1.2 1.3 mg/dL mg/dL] *HI* (09/22/15 9:35 AM) Chol [0-199 mg/dL] 147 mg/dL (09/22/15 9:35 AM) Trig [0-149 mg/dL] 170 mg/dL *HI* (09/22/15 9:35 AM) HDL [40-84 mg/dL] 28 mg/dL *LOW* (09/22/15 9:35 AM) LDL [0-130 mg/dL] 85 mg/dL (09/22/15 9:35 AM) VLDL Cholesterol 34 mg/dL [0-28 mg/dL] *HI* (09/22/15 9:35 AM) Cardiac Risk 5.3 [0.0-5.7] (09/22/15 9:35 AM) 1Result Comment: Multiply eGFR results by 1.21 for race. Immunizations Vaccine Date Refusal Reason influenza virus vaccine, inactivated 05/30/15 influenza virus vaccine, live 06/10/13 influenza virus vaccine, live 05/27/12 pneumococcal 23-polyvalent vaccine 06/07/10 Procedures Procedure Date Related Diagnosis Body Site Collection of venous blood by venipuncture 09/22/15 COLORECTAL CANCER SCREENING; COLONOSCOPY ON 05/26/15 INDIVIDUAL NOT MEETING CRITERIA FOR HIGH RISK1 Cardiac catheterization 03/07/15 Pacemaker battery2 03/07/15 Cardiac catheterization3 08/19/12 CABG - Coronary artery bypass graft4 12/17/08 Mitral valve operation5 12/17/08 Pacemaker 08/19/08 Removal/replacement pacemaker due to Staph 08/2008 Laminectomy/L2-46 2007 Colonoscope/repeat in 10 years 08/19/06 Replacement/mechanical mitral valve 1Oct2014 colonoscopy with biopsy indicates history of diverticulitis. Repeat in 10 years. 2battery change 33820,2005,2011,2012 41 vessel 5Septal myomectomy, mitral valve replacement 6with decompression and irrigation and debridement 7diverticulosis with polypectomy showing hyperplastic polyp Social History Social History Type Response Smoking Status Former smoker; Type: Cigarettes; Tobacco use per day: 1 Pack1 1Quit in 1995 Assessment and Plan Extracted from: Title: Office Visit Note Author: Alexander Green MD Date: 09/22/15 Assessment/Plan Atherosclerotic heart disease of [place] coronary artery without angina pectoris , CAD (coronary artery disease) Chronic relatively stable. I am somewhat concerned that he still having chest painI'm not convinced this is cardiac. I suggested he see Dr. Lake sometime in the next few months. She's having more frequent or worsening episodes of painhe should let us know. Recheck in3 months. Ordered: Comprehensive Metabolic Panel Lipid Panel Office Visit Level 4 Est 97941 Benign essential hypertension, Essential (primary) hypertension Blood pressures well-controlled no change in current treatment is recommended. Fasting laboratory studies ordered. Follow-up in 3 months. Ordered: Comprehensive Metabolic Panel Lipid Panel Office Visit Level 4 Est 30482 Generalized OA, Polyosteoarthritis, unspecified Chronic stable no change in current treatment. Ordered: Office Visit Level 4 Est 69219 Hypertrophic cardiomyopathy, Other hypertrophic cardiomyopathy Chronic appears relatively stable. Encouraged him to see Dr. Lake early spring for ongoingfollow-up. Ordered: Office Visit Level 4 Est 53850
--- OUTSIDE RECORDS SUMMARY | 2017-01-06 14:52 | XMS REPORT ---
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 use of anticoagulant Z79.01 Active Assessment half-way current use of anticoagulant Z79.01 Active Assessment Hyperlipidemia, unspecified hyperlipidemia type E78.5 Active Assessment Dermatitis L30.9 Active Assessment Coronary artery disease involving tribe heart with angina pectoris , unspecified vessel or lesion type I25.119 Active Medications Medication Code System Code Instructions Start Date End Date Status Dosage Metoprolol Succinate ER [facility] [address]-52 25 MG Orally Once a day 1 tablet Nitroglycerin [facility] [address]-25 0.2 MG/HR Transdermal Once a day, on in the morning, off in the evening Jul 25, 2016 1 patch to skin remove after 12 hours Coumadin [facility] [address]-83 4 MG Orally on sat, sun, tues 1 tablet Sertraline HCl [facility] [address]-84 100 MG Orally Once a day 1 tablet Lisinopril [facility] [address]-57 2.5 MG Orally Once a day 1 tablet Augmentin [facility] [address]-32 875-125 MG Orally Twice a day Jul 25, 2016 Aug 04, 2016 1 tablet Phenazopyridine HCl [facility] [address]-85 200 MG Orally PRN 1 tablet after meals Klor-Con M20 [facility] [address]-90 20 MEQ Orally Twice a day with breakfast and supper 1 tablet Aspirin Adult Low Strength [facility] [address]-04 81 MG Orally Once a day 1 tablet iron ND 0 Oral 3 times a week 1 tab Vitamin D [facility] [address]-75 2000 UNIT Orally four times a week not defined Furosemide [facility] [address]-43 40 MG Orally Twice every day 1 tablet Atorvastatin Calcium [facility] [address]-30 20 MG Orally Once a day 2 tablets Coumadin [facility] [address]-02 3 MG Orally as directed Jul 25, 2016 1 tablet Triamcinolone Acetonide [facility] [address]-91 0.1 % Externally as needed 1 application to affected area Procedures Procedure Coding System Code Date ADMINISTRATION, 1ST IMMUNIZATION CPT-4 75426 Jul 25, 2016 OFFICE VISIT, MANTEL CRAFTSMAN-MOD. COMPLEXITY (45 MIN.) CPT-4 33905 Jul 25, 2016 PNEUMOCOCOCCAL CONJUGATE VACCINE CPT-4 63938 Jul 25, 2016 TSH CPT-4 57533 Jul 25, 2016 COMPLETE CBC W/AUTO DIFF WBC CPT-4 37151 Jul 25, 2016 URINALYSIS, IN HOUSE CPT-4 36629 Jul 25, 2016 Vital Signs Date/Time: Jul 25, 2016 Temperature 98.4 F Height 70.75 in Weight 301 lbs Blood Pressure Diastolic 66 mm Hg Blood Pressure Systolic 128 mm Hg Cardiac Monitoring Heart Rate 79 /min BMI 42.27 Index Oximetry 94 % Results Name Result Date Reference Range Unit Abnormality Flag TSH ----TSH 2.19 [id number] 0.35-4.94 uIU/mL In House Urinalysis, automated ----PRO negative [id number] ----pH 6.0 20160725 ----BLO trace [id number] ----SG 1.015 20160725 ----KET negative 20160725 ----INA negative 20160725 ----Color yellow 20160725 ----URO 0.2 20160725 ----Clarity clear 20160725 ----GLU negative 20160725 ----NIT negative 20160725 ----ZENA negative [id number] CBC With Platelet and Differential ----MCHC 33.6 14342503 32.0-36.0 g/dL ----MCH 25.6 [id number] 27.0-32.0 pg L ----MPV 8.7 [id number] 8.8-14.8 fL L ----RDW 16.3 [id number] 11.5-14.5 % H ----Eosinophils 2 05644340 0-4 % ----Basophils 0 36486823 0-2 % ----Immature Granulocytes 0.3 32993169 0.0-1.0 % ----Absolute Neutrophils 5.26 [id number] 1.90-7.00 10*3 ----Platelet Count 210 [id number] 150-400 K/uL ----Absolute Eosinophils 0.16 26533766 0.00-0.50 10*3 ----HCT 47.0 46672985 42.0-52.0 % ----Absolute Basophils 0.02 [id number] 0.00-0.20 10*3 ----MCV 76.1 36358261 82.0-99.0 fL L ----RBC 6.18 [id number] 4.60-6.20 10*6/uL ----Absolute Lymphocytes 0.79 [id number] 0.80-3.30 10*3 L ----Absolute Monocytes 0.79 53693304 0.30-1.00 10*3 ----HGB 15.8 42688544 14.0-18.0 g/dL ----Monocytes 11 18271303 4-11 % ----WBC 7.0 12528237 4.8-10.8 K/uL ----Neutrophils 75 35670086 51-75 % ----Lymphocytes 11 88939004 20-46 % L Immunizations Vaccine Administration Date Prevnar Jul 25, 2016 Summary Purpose [employer] Submission
[2017-01-06] MEDS ORDERED: FURO40TA5 PO ×2 (14:53)
--- OUTSIDE RECORDS SUMMARY | 2017-01-06 14:53 | XMS REPORT | Continuity of Care Document ---
Author Author [facility] Organization [facility] Address Unknown Phone Unavailable Support Name Relationship Address Phone KEVIN CROOKS MD Caregiver [address] [place] [address] Unavailable HAYDEE BURROWS MD Caregiver [address] [place] [address] Unavailable IMELDA SANTANA Next Of Kin [address] [place] [address] Insurance Providers Guarantor Debbie Santana Address [address] [place] [address] Email [email or web address] Policy Number [id number] Subscriber's Name Debbie Santana Relationship 18 Self Group Number [id number] Effective Date 14 Advance Directives Directive Response Recorded Date/Time Advanced Directives Type None 04/14/16 10:14pm Chief Complaint and Reason for Visit Chief Complaint Chest Pain Reason for Visit Congestive heart failure Pulmonary edema Problems Active Problems Medical Problem Onset Date Status Bursitis of left knee Unknown Acute Bursitis of left knee Unknown Acute Diastolic CHF with preserved left ventricular function, NYHA class 2 Unknown Acute Hypertension Unknown Chronic Mixed hyperlipidemia Unknown Chronic NSTEMI (non-ST elevated myocardial infarction) Unknown Acute Sleep apnea Unknown Chronic Subtherapeutic anticoagulation Unknown Acute Surgical Problem Onset Date Status Hx of mitral valve replacement with mechanical valve Unknown Chronic Past Problems Medical Problem Onset Date Chest pain, rule out acute myocardial infarction Unknown Congestive heart failure Unknown Pulmonary edema Unknown Medications Current Home Medications Medication Dose Units Route Directions Days Qty Instructions Start Date Aspirin (Aspir 81) 81 Mg Tablet.dr 81 Mg Oral Daily 04/15/10 Atorvastatin Calcium (Lipitor) 20 Mg Tablet 40 Mg Oral Daily 30 Days 60 Tablet 03/26/16 Furosemide 40 Mg Tablet 40 Mg Oral Give 0900 & 1700 30 Days 60 Tablet 03/26/16 Lisinopril 2.5 Mg Tablet 2.5 Mg Oral Daily 05/25/15 Metoprolol Tartrate 25 Mg Tablet 50 Mg Oral Twice Daily With Meals 30 Days 120 Tablet 03/26/16 Phenazopyridine Hcl 200 Mg Tablet 200 Mg Oral Three Times A Day as needed for Prn Orders 03/18/16 Potassium Chloride (Klor-Con M20) 20 Meq Tablet 20 Meq Oral Twice A Day Breakfast & Supper 30 Days 60 Tablet 03/26/16 Sertraline Hcl (Zoloft) 100 Mg Tablet 100 Mg Oral Daily 10/19/12 Triamcinolone (Triamcinolone Acetonide) 15 Applic/15 G Cr 1 Applic Topically Twice A Day 03/18/16 Warfarin Sodium 3 Mg Tablet 3 Mg Oral 5 Times A Week SUN,TUE,WED,ANNIE ,SAT 05/25/15 Warfarin Sodium 4 Mg Tablet 4 Mg Oral Twice A Week MON & FRI Past Home Medications Medication Directions Ordered Status Amiodarone Hcl (Pacerone) 200 Mg Tablet, 200 Mg Oral Twice A Day 05/08/09 Discontinued Atorvastatin Calcium (Lipitor) 20 Mg Tablet, 20 Mg Oral Daily 10/19/12 Discontinued Bupropion Hcl (Wellbutrin Sr) 150 Mg Tablet.sa, 150 Mg Oral Daily 04/15/10 Discontinued Carvedilol (Coreg) 12.5 Mg Tablet, 6.25 Mg Oral Twice A Day 05/08/09 Discontinued Clopidogrel Bisulfate (Plavix) 75 Mg Tablet, 75 Mg Oral 12/08/08 Discontinued Digoxin 125 Mcg Tablet, 125 Mcg Oral Bedtime 04/15/10 Discontinued Ezetimibe/Simvastatin (Vytorin 10-40 Mg Tablet) 1 Tab Tablet, 1 Tab Oral Discontinued Fenofibrate 54 Mg Tablet, 54 Mg Oral Daily 07/10/14 Discontinued Furosemide (Lasix) 40 Mg Tablet, 40 Mg Oral Daily Am 04/15/10 Discontinued Ibuprofen 200 Mg Tablet, 200 Mg Oral 12/08/08 Discontinued Metoprolol Tartrate 25 Mg Tablet, 25 Mg Oral Twice Daily With Meals 03/19/16 Discontinued Pantoprazole Sodium (Protonix) 40 Mg Tablet.dr, 40 Mg Oral Daily 04/15/10 Discontinued Potassium Chloride 20 Meq Tablet.er, 20 Meq Oral Daily 03/18/16 Discontinued Simvastatin 20 Mg Tablet, 20 Mg Oral Daily 04/06/12 Discontinued Verapamil Hcl 240 Mg Tablet.sa, 240 Mg Oral 04/15/10 Discontinued Warfarin Sodium (Coumadin) 2 Mg Tablet, 2 Mg Oral Daily 04/15/10 Discontinued Social History Social History Problem Response Recorded Date/Time Onset Date Status Hx Substance Use No 04/14/2016 10:40pm Not Applicable Not Applicable Hx Alcohol Use No 04/14/2016 10:40pm Not Applicable Not Applicable Has the pt used tobacco in the last 12 months No 03/18/2016 2:13pm Not Applicable Not Applicable Tobacco Usage none 03/24/2016 11:16pm Not Applicable Not Applicable Query Response Start Date Stop Date Smoking Status Never smoker Hospital Discharge Instructions No hospital discharge instructions. Plan of Care Discharge Date 04/14/16 11:37pm Disposition 01 DISCHARGED HOME, SELF-CARE Condition at Discharge Improved Instructions/Education [place] [facility] [place] Prescriptions See Medication Section Referrals HAYDEE BURROWS MD Address: [address] [place] [address] [phone] Additional Instructions/Education For 3 days, take double your Lasix up to 80 mg twice daily May use nitroglycerin at home sublingually as needed for chest discomfort or difficulty breathing Call Dr. Caballero or return to ER for any significant worsening Care Plan and Goals Physician Care Plan Problem: Pulmonary edema with congestive heart failure Goal: Follow up with primary care provider Instructions: Take medications and follow care plan as discussed/written For 3 days, take double your Lasix up to 80 mg twice daily May use nitroglycerin at home sublingually as needed for chest discomfort or difficulty breathing Call Dr. Caballero or return to ER for any significant worsening Functional Status No functional status results. Allergies, Adverse Reactions, Alerts Allergen Type Severity Reaction Status Last Updated venlafaxine HCl Allergy Unknown Active 04/14/16 Niacin Adverse Reaction Intermediate NAUSEA/VOMITING, RASH Active 04/14/16 Immunizations Query Response on File Recorded Date/Time Hx Influenza Vaccination Y MAY 2015 03/18/16 2:13pm Hx Pneumococcal Vaccination No 03/18/16 2:13pm Hx Influenza Vaccination Y MAY 2015 03/18/16 2:13pm Vital Signs Acute Vital Signs Vital Response Date/Time Temperature (Fahrenheit) 98.3 deg F (96.8 - 99.1) 04/14/2016 11:37pm Temperature (Calculated Celsius) 36.97699 degrees C (36.0 - 37.3) 04/14/2016 11:37pm Temperature Source Oral 03/23/2016 4:16pm Pulse Rate (adult) 69 bpm (60 - 100) 04/14/2016 11:37pm Respiratory Rate 15 breaths/min (10 - 20) 04/14/2016 11:37pm O2 Sat by Pulse Oximetry 95 % (90 - 100) 04/14/2016 11:37pm Oxygen Delivery Method Room Air 03/23/2016 4:16pm Oxygen Delivery Method Room Air 03/26/2016 8:03am Oxygen Flow Rate 2.00 L/min 03/19/2016 6:15am Blood Pressure 98/52 mm Hg 04/14/2016 11:37pm Blood Pressure Source Automatic Cuff 03/26/2016 8:03am Height (Feet) 5 feet 04/14/2016 10:14pm Height (Inches) 10.00 inches 04/14/2016 10:14pm Weight (Kilograms) 132.300 kg 04/14/2016 10:14pm Body Mass Index (BMI) 41.0 04/14/2016 10:14pm Results Laboratory Results Test Name Result Units Flags Reference Collection Date/Time Result Date/ Time Comments Activated Partial Thromboplast Time 68.9 SEC H 24-36 03/26/2016 5:01am 03/26/2016 5:25am Cholesterol Level 113 MG/DL L 132-199 03/23/2016 4:41am 03/27/2016 1: 13am Triglycerides Level 162 MG/DL H 40-160 03/23/2016 4:41am 03/27/2016 1: 13am HDL Cholesterol Direct 28 MG/DL L 40-60 03/23/2016 4:41am 03/27/2016 1: 13am LDL Cholesterol, Calculated 52.6 L 66-159 03/23/2016 4:41am 2015 1:13am VLDL Cholesterol 32.4 MG/DL H 0-28 03/23/2016 4:41am 03/27/2016 1:13am Cholesterol/HDL Ratio 4.0 RATIO 0-5.0 03/23/2016 4:41am 03/27/2016 1: 13am Magnesium Level 2.3 MG/DL 1.6-2.3 03/26/2016 9:07am 03/26/2016 9:27am Arterial Blood pH 7.367 7.350-7.450 03/21/2016 11:48am 03/21/2016 12: 06pm Arterial Blood Partial Pressure CO2 48 MMHG H 34-45 03/21/2016 11:48am 03/21/2016 12:06pm Arterial Blood pO2 at Patient Temp 91 MMHG 80-100 03/21/2016 11:48am 12:06pm Arterial Blood HCO3 27 MEQ/L H 22-26 03/21/2016 11:48am 03/21/2016 12: 06pm Arterial Blood Total CO2 29 MEQ/L H 23-27 03/21/2016 11:48am 03/21/2016 12:06pm Arterial Blood Base Excess 1.0 MMOL/L -2.0-2.0 03/21/2016 11:48am 03/21 12:06pm Arterial Blood Oxygen Saturation 97.0 % 95.0-98.0 03/21/2016 11:48am 12:06pm Blood Gas Oxygen Liter Flow 2 03/21/2016 11:48am 03/21/2016 12: 06pm Oxygen Delivery Method (LAB) NASAL CANNULA,LITERS 03/21/2016 11: 51am 03/21/2016 12:07pm Venous Blood pH 7.341 7.31-7.41 03/21/2016 11:51am 03/21/2016 12: 07pm Venous Blood Partial Pressure CO2 52.4 MMHG H 40-52 03/21/2016 11:51am 03/21/2016 12:07pm Venous Blood Partial Pressure O2 35 MMHG L 40-52 03/21/2016 11:51am 10/2015 12:07pm Venous Blood HCO3 28 MEQ/L H 22-26 03/21/2016 11:51am 03/21/2016 12: 07pm Venous Blood Total Carbon Dioxide 30 MEQ/L 03/21/2016 11:51am 2015 12:07pm Venous Blood Base Excess 1.0 MMOL/L -2.0-2.0 03/21/2016 11:51am 2015 12:07pm Venous Blood Oxygen Saturation 62.0 % 03/21/2016 11:51am 03/21/2016 12:07pm Blood Gas Oxygen Liter Flow 2 03/21/2016 11:51am 03/21/2016 12: 07pm Urine Collection Type CLEANCATCH-MIDSTREAM 03/18/2016 8:38pm 2015 8:54pm Urine Color YELLOW YELLOW 03/18/2016 8:38pm 03/18/2016 8:54pm Urine Turbidity CLEAR CLEAR 03/18/2016 8:38pm 03/18/2016 8:54pm Urine Specific [place] 1.025 1.015-1.025 03/18/2016 8:38pm 2015 8:54pm Urine pH 5.0 5.0-8.0 03/18/2016 8:38pm 03/18/2016 8:54pm Urine Leukocyte Esterase NEGATIVE NEGATIVE 03/18/2016 8:38pm 2015 8:54pm Urine Nitrite NEGATIVE NEGATIVE 03/18/2016 8:38pm 03/18/2016 8:54pm Urine Protein NEGATIVE NEGATIVE 03/18/2016 8:38pm 03/18/2016 8:54pm Urine Glucose (UA) NEGATIVE NEGATIVE 03/18/2016 8:38pm 03/18/2016 8: 54pm Urine Ketones NEGATIVE NEGATIVE 03/18/2016 8:38pm 03/18/2016 8:54pm Urine Urobilinogen 0.2 EU/DL NORMAL 03/18/2016 8:38pm 03/18/2016 8: 54pm Urine Bilirubin NEGATIVE NEGATIVE 03/18/2016 8:38pm 03/18/2016 8: 54pm Urine Blood 1+ A NEGATIVE 03/18/2016 8:38pm 03/18/2016 8:54pm Urine WBC 0-1 /HPF 0-5 03/18/2016 8:38pm 03/18/2016 9:16pm Urine RBC 0-1 /HPF 0-3 03/18/2016 8:38pm 03/18/2016 9:16pm Urine Bacteria NONE SEEN NEGATIVE 03/18/2016 8:38pm 03/18/2016 9: 16pm Urine Culture Indicated CULT NOT INDICATED 03/18/2016 8:38pm 2015 9:16pm White Blood Count 10.0 T/MM3 4.5-11.0 04/14/2016 10:25pm 04/14/2016 10: 38pm Red Blood Count 5.84 M/MM3 4.50-5.90 04/14/2016 10:25pm 04/14/2016 10: 38pm Hemoglobin 15.5 GM/DL 13.5-17.5 04/14/2016 10:25pm 04/14/2016 10:38pm Hematocrit 46.3 % 41-53 04/14/2016 10:25pm 04/14/2016 10:38pm Mean Corpuscular Volume 79.3 UM3 L 80-100 04/14/2016 10:04/14/2016 10:38pm Mean Corpuscular Hemoglobin 26.5 UUG 26-34 04/14/2016 10:2015 10:38pm Mean Corpuscular Hemoglobin Concent 33.5 GM/DL 31-37 04/14/2016 10:04/14/2016 10:38pm RDW Standard Deviation 42.4 FL 36.9-50.2 04/14/2016 10:04/14/2016 10:38pm Platelet Count 188 T/MM3 130-400 04/14/2016 10:04/14/2016 10:38pm Mean Platelet Volume 8.6 UM3 L 9.4-12.4 04/14/2016 10:04/14/2016 10 :38pm Neutrophils (%) (Auto) 75.9 % H 33-66 04/14/2016 10:04/14/2016 10: 38pm Lymphocytes (%) (Auto) 12.1 % L 23-45 04/14/2016 10:04/14/2016 10: 38pm Monocytes (%) (Auto) 9.3 % H 0-9.0 04/14/2016 10:04/14/2016 10: 38pm Eosinophils (%) (Auto) 2.2 % 0-4 04/14/2016 10:04/14/2016 10:38pm Basophils (%) (Auto) 0.3 % 0-2 04/14/2016 10:04/14/2016 10:38pm Immature Granulocyte % (Auto) 0.2 % 0.0-0.5 04/14/2016 10:2015 10:38pm Absolute Neutrophils (auto) 7.6 T/MM3 1.8-7.7 04/14/2016 10:2015 10:38pm Absolute Lymphocytes (auto) 1.2 T/MM3 1-4.8 04/14/2016 10:2015 10:38pm Absolute Monocytes (auto) 0.9 T/MM3 H 0-0.8 04/14/2016 10:2015 10:38pm Absolute Eosinophils (auto) 0.2 T/MM3 0-0.5 04/14/2016 10:2015 10:38pm Absolute Basophils (auto) 0.0 T/MM3 0-0.2 04/14/2016 10:2015 10:38pm Absolute Immature Granulocyte (auto 0.02 T/MM3 0.00-0.03 04/14/2016 10: 04/14/2016 10:38pm Prothromb Time International Ratio 2.69 H 0.99-1.21 04/14/2016 10:04/14/2016 10:37pm THERAPUTIC RANGE=2.00-3.00 FOR ANTI-THROMBOSIS THERAPUTIC RANGE=2.50-3.50 FOR IMPLANTED VALVE Icterus Index < 2 0-7 04/14/2016 10:04/14/2016 10:42pm Chemistry Specimen Hemolysis < 15 0-25 04/14/2016 10:04/14/2016 10:42pm 0-25: Specimen Exhibited No Hemolysis. Turbidity < 20 0-20 04/14/2016 10:04/14/2016 10:42pm Sodium Level 140 MEQ/L 134-144 04/14/2016 10:04/14/2016 10:42pm Potassium Level 3.9 MEQ/L 3.6-5 04/14/2016 10:04/14/2016 10:42pm Chloride Level 102 MEQ/L 98-107 04/14/2016 10:04/14/2016 10:42pm Carbon Dioxide Level 28 MEQ/L 22-30 04/14/2016 10:04/14/2016 10: 42pm Anion Gap 10 MEQ/L 5-15 04/14/2016 10:04/14/2016 10:42pm Blood Urea Nitrogen 22.0 MG/DL H 9-04/14/2016 10:04/14/2016 10: 42pm Creatinine 1.1 MG/DL 0.8-1.5 04/14/2016 10:04/14/2016 10:42pm BUN/Creatinine Ratio 20 RATIO 6-26 04/14/2016 10:04/14/2016 10: 42pm Glomerular Filtration Rate Calc 69 04/14/2016 10:04/14/2016 10 :42pm Glucose Level 110 MG/DL 75-110 04/14/2016 10:04/14/2016 10:42pm Calculated Osmolality 273 MOSM/KG 261-280 04/14/2016 10:2015 10:42pm Calcium Level 9.0 MG/DL 8.4-10.2 04/14/2016 10:04/14/2016 10:42pm Total Bilirubin 0.90 MG/DL 0.20-1.30 04/14/2016 10:04/14/2016 10: 42pm Alkaline Phosphatase 71 U/L 38-126 04/14/2016 10:04/14/2016 10: 42pm Total Protein 7.0 G/DL 6.3-8.2 04/14/2016 10:04/14/2016 10:42pm Albumin 4.2 G/DL 3.5-5.0 04/14/2016 10:04/14/2016 10:42pm Globulin 2.8 G/DL 2.4-3.6 04/14/2016 10:04/14/2016 10:42pm Albumin/Globulin Ratio 1.5 RATIO 1.1-2.2 04/14/2016 10:04/14/2016 10:42pm Aspartate Amino Transf (AST/SGOT) 40 U/L 17-59 04/14/2016 10:04/14 10:42pm Alanine Aminotransferase (ALT/SGPT) 59 U/L 21-72 04/14/2016 10: 10:42pm Troponin I 0.058 ng/ml 0-0.12 04/14/2016 10:04/14/2016 10:54pm Troponin values with a difference of 55% increase from orginal troponin value represent a true biological DELTA value. (%increase Calc=Orginal Troponin value, divided by subsequent Troponin value, multiplied by 100) DM-Ejb-A-Type Natriuretic Peptide 1320 PG/ML H 0-175 04/14/2016 10:04/14/2016 10:54pm Rule in cut points: <50 years old=450; 50-75 years old=900; >75 years old=1800; When utilizing ProBNP rule-in cut points, adjustment for impaired renal function is typically not required. Procedures Procedure Status Date Provider(s) R&L HRT ART/VENTRICLE ANGIO Completed 03/20/16 JAS CABALLERO MD MEASURE CARDIAC SAMPL & PRESSURE, BILATERAL, PERC Completed 03/21/16 JAS CABALLERO MD FLUOROSCOPY OF MULT COR ART USING L OSM CONTRAST Completed 03/21/16 JAS CABALLERO MD FLUOROSCOPY OF LEFT HEART USING LOW OSMOLAR CONTRAST Completed 03/21/16 JAS CABALLERO MD FLUOROSCOPY OF SING COR A GRAFT USING L OSM CONTRAST Completed 03/21/16 JAS CABALLERO MD FLUOROSCOPY OF L INT MAMM GRAFT USING L OSM CONTRAST Completed 03/21/16 JAS CABALLERO MD Encounters Encounter Location Arrival/Admit Date Discharge/Depart Date Attending Provider Departed Emergency Room [facility] 04/14/16 10:14pm 04/14/16 11: 37pm KEVIN CROOKS MD Discharged Inpatient [facility] 03/20/16 12:54pm 03/26/16 2:55pm JAS CABALLERO MD Recent Diagnosis
--- OUTSIDE RECORDS SUMMARY | 2017-01-06 14:53 | XMS REPORT | Referral Summary ---
Author Author [facility] Organization [facility] Address Unknown Phone Unavailable Care Team Providers Care [employer]otive Tire Technician Name Role Phone Yfn Green Primary Care Physician [phone] Encounter VC Date(s): 03/07/15 - 03/07/15 [facility] [address] [place] [id number] Discharge Disposition: 01-Home or Self Care Attending Physician: Leonel Ayala MD Admitting Physician: Leonel Ayala MD Vital Signs No data available for [...] Daily, # 30 tabs, 0 Refill(s), Pharmacy: [facility] # [id number], 1 tabs Oral Daily Start Date: 06/11/15 [...] q12hr, # 6 Each, 0 Refill(s), Pharmacy: [facility] #[id number], 1 mL SubCutaneous q12hr Start Date: 05/27/15 Status: Ordered Metoprolol Tartrate 25 mg oral tablet See Instructions, TAKE ONE TABLET BY MOUTH DAILY, # 30 tabs, 2 Refill(s), eRx: [facility] #[id number], TAKE ONE TABLET BY MOUTH DAILY Start Date: 08/24/15 Status: Ordered nitroglycerin 0.4 mg sublingual tablet 1 tabs, SubLingual, q5min, as needed for chest pain, # 100 tabs, 0 Refill(s) Start Date: 07/08/14 Status: Ordered [place] 5 mg-325 mg oral tablet 1 tabs, [...] days, # 30 Each, 0 Refill(s), Pharmacy: [facility] #[id number], Take 2 daily for 7 days Start Date: 08/10/15 Status: Ordered sertraline 100 mg oral tablet See Instructions, TAKE ONE TABLET BY MOUTH DAILY, # 30 tabs, 2 Refill(s), eRx: [facility] #[id number], TAKE ONE TABLET BY MOUTH DAILY Start Date: 09/14/15 Status: Ordered sertraline 100 mg oral tablet See Instructions, TAKE ONE TABLET BY MOUTH DAILY, # 30 tabs, 3 Refill(s), eRx: [facility] #[id number], TAKE ONE TABLET BY MOUTH DAILY Start Date: 05/18/15 Status: Ordered Vitamin D with Minerals oral tablet 1 tabs, Oral, Daily, # 30 tabs, 0 Refill(s) Start Date: 03/17/15 Status: Ordered warfarin 3 mg oral tablet See Instructions, TAKE ONE TABLET BY MOUTH DAILY ON SATURDAY, SATURDAY, SATURDAY, AND SATURDAY, # 90 tabs, 4 Refill(s), eRx: [facility] #[id number], TAKE ONE TABLET BY MOUTH DAILY ON SATURDAY, SATURDAY, SATURDAY, AND SATURDAY Start Date: 09/07/15 Status: Ordered Results No data available for [...] diverticulitis. Repeat in 10 years. 2battery change [id number],2011,2012 41 vessel 5Septal myomectomy, mitral valve replacement 6with decompression and irrigation and debridement 7diverticulosis with polypectomy showing hyperplastic polyp Social History Social History Type Response Smoking Status Former smoker; Type: Cigarettes; Tobacco use per day: 1 Pack1 1Quit in 1995 Assessment and Plan No data available for this section
--- OUTSIDE RECORDS SUMMARY | 2017-01-06 14:53 | XMS REPORT | Continuity of Care Document ---
Author Author [facility] Organization [facility] Address Unknown Phone Unavailable Support Name Relationship Address Phone KEVIN CROOKS MD Caregiver [facility] [address] [place] [address] Unavailable HAYDEE BURROWS MD Caregiver [address] [place], [place] [phone] SANTANAIMELDA GRAY Next Of Kin [address] [place] [address] Insurance Providers Payer Name Policy Number Subscriber Name Relationship [employer] Other [id number] Debbie Santana 19 Self Problems Medical Problems Problem Onset Date Status Bursitis of left knee Unknown Active Bursitis of left knee Unknown Active Medications Medication Dose Route Sig Days/Qty Instructions Order Date Discontinued Date Status Ibuprofen 200 Mg PO 12/08/08 04/15/10 Discontinued Aspirin 81 Mg PO DAILY 04/15/10 Active Carvedilol 6.25 Mg PO TWICE A DAY 05/08/09 04/15/10 Discontinued [place]-3 Fatty Acids 2,000 Mg PO TWICE A [...] Acetonide 15 Gm TP NEEDED 10/19/12 Active Phenazopyridine HCl 200 Mg PO AFTER MEALS Take 1 tablet, by mouth, 3 times a day after meals. 07/10/14 Active Fenofibrate 54 Mg PO DAILY 07/10/14 Active Clopidogrel Bisulfate 1 Tab PO DAILY 07/10/14 Active Cholecalciferol (Vitamin D3) 2,000 Unit PO DAILY 07/10/14 Active Hydrocodone/Acetaminophen 1 Tab PO FOUR TIMES DAILY PRN PAIN 30 Qty Active Social History Social History Problem Response Recorded Date/Time Smoking Status Former smoker 07/18/2014 12:50am When did patient START smoking? 20 YEARS AGO 07/18/2014 12:50am Chewing Tobacco Status No 07/18/2014 12:50am Hx Substance Use No 07/18/2014 12:50am Hx Alcohol Use Y OCCAS 07/18/2014 12:50am Query Response Start Date Stop Date Smoking Status Former smoker Hospital Discharge Instructions No hospital discharge instructions. Plan of Care No plan of care. Functional Status Query Response Date Recorded Physical Hygiene Self July 18, 2014 12:50am Disabilities None July 18, 2014 12:50am Devices Used None July 18, 2014 12:50am Dressing Self July 18, 2014 12:50am Ambulation Self July 18, 2014 12:50am Diet Self July 18, 2014 12:50am Mental Status Alert July 18, 2014 1:18am Disabilities None July 18, 2014 12:50am Devices Used None July 18, 2014 12:50am Physical Hygiene Self July 18, 2014 12:50am Dressing Self July 18, 2014 12:50am Ambulation Self July 18, 2014 12:50am Diet Self July 18, 2014 12:50am Allergies, Adverse Reactions, Alerts Allergen Type Severity Reaction Status Last Updated venlafaxine HCl Allergy Unknown Active 07/18/14 Niacin Adverse Reaction Intermediate NAUSEA/VOMITING, RASH Active 07/18/14 Metoprolol Allergy Intermediate RASH Active 07/18/14 Immunizations Name Given Type Hx Influenza Vaccination Y MAY 2014 Historical Hx Pneumococcal Vaccination No Historical Hx Influenza Vaccination Y MAY 2014 Historical Vital Signs Acute Vital Signs Vital Response Date/Time Temperature (Fahrenheit) 98.1 deg F (96.8 - 99.1) Temperature (Calculated Celsius) 36.96777 degrees C (36.0 - 37.3) Pulse Rate (adult) 76 bpm (60 - 100) Respiratory Rate 20 breaths/min (10 - 20) O2 Sat by Pulse Oximetry 95 % (90 - 100) Blood Pressure 124/63 mm Hg Height 5 ft 10 in Weight 280 lb Body Mass Index 40.0 kg/m^2 Results [...] pyridiumHas specimen been collected/obtained? Y Urine Specific [place] April 06, 2012 6:00pm 1.020 - COMMENT [...] 19, 2012 12:15pm 0.4 % N 0.0-0.5 UR-Sif-A-Type Natriuretic Peptide October 19, 2012 12:15pm 605 PG/ML H 0- 175 Rule in cut points: <50 years old=450; 50-75 years old=900; >75 years old=1800; When utilizing ProBNP rule-in cut points, adjustment for impaired renal function is typically not required. Blood Culture Blood May 09, 2008 6:05am NO GROWTH AFTER 5 DAYS Gram Stain Synovial Fluid-Left Knee July 10, 2014 8:20pm Procedures Procedure Status Date Provider(s) DRAIN/INJECT JOINT/BURSA completed 07/10/14 KEVIN CROOKS MD CULTURE OTHR SPECIMN AEROBIC completed 07/10/14 SMEAR GRAM STAIN completed 07/10/14 THER/PROPH/DIAG INJ SC/IM completed 07/10/14 THER/PROPH/DIAG INJ SC/IM completed 07/10/14 THER/PROPH/DIAG INJ SC/IM completed 07/10/14 EMERGENCY DEPT VISIT completed 07/10/14"INJECTION, HYDROMORPHONE, UP TO 4 MG" completed 07/10/14"INJECTION, KETOROLAC TROMETHAMINE, PER 15 MG" completed 07/10/14"INJECTION, METHYLPREDNISOLONE SODIUM SUCCINATE, UP TO completed "INJECTION, BUPIVICAINE HYDROCHLORIDE, 30 ML" completed 07/10/14 Encounters Encounter Location Date/Time Departed Emergency Room [facility] 07/18/14 12:25am Departed Emergency Room [facility] 07/10/14 7:38pm Recent Diagnosis
--- OUTSIDE RECORDS SUMMARY | 2017-01-06 14:53 | XMS REPORT | Referral Summary ---
Author Author [facility] Organization [facility] Address Unknown Phone Unavailable Care Team Providers Care Planner Internship Name Role Phone Yfn Green Primary Care Physician [phone] Encounter VC Date(s): 05/23/15 - 05/23/15 [facility], Surgery [address] [place] [address] [place] [id number] Discharge Disposition: 01-Home or Self Care [...] Daily, # 30 tabs, 0 Refill(s), Pharmacy: [facility] # [id number], 1 tabs Oral Daily Start Date: 06/11/15 [...] q12hr, # 6 Each, 0 Refill(s), Pharmacy: [facility] #[id number], 1 mL SubCutaneous q12hr Start Date: 05/27/15 Status: Ordered Metoprolol Tartrate 25 mg oral tablet See Instructions, TAKE ONE TABLET BY MOUTH DAILY, # 30 tabs, 1 Refill(s), eRx: [facility] #[id number], TAKE ONE TABLET BY MOUTH DAILY Start Date: 11/23/15 Status: Ordered nitroglycerin 0.4 mg sublingual tablet 1 tabs, SubLingual, q5min, as needed for chest pain, # 100 tabs, 0 Refill(s) Start Date: 07/08/14 Status: Ordered [place] 5 mg-325 mg oral tablet 1 tabs, [...] DAILY, # 30 tabs, 2 Refill(s), eRx: [facility] #[id number], TAKE ONE TABLET BY MOUTH DAILY Start Date: 09/14/15 Status: Ordered sertraline 100 mg oral tablet See Instructions, TAKE ONE TABLET BY MOUTH DAILY, # 30 tabs, 3 Refill(s), eRx: [facility] #[id number], TAKE ONE TABLET BY MOUTH DAILY Start Date: 05/18/15 Status: Ordered Vitamin D with Minerals oral tablet 1 tabs, Oral, Daily, # 30 tabs, 0 Refill(s) Start Date: 03/17/15 Status: Ordered warfarin 2 mg oral tablet See Instructions, TAKE TWO TABLETS BY MOUTH DAILY ON SATURDAY, SATURDAY, AND SATURDAY., # 78 tabs, 5 Refill(s), eRx: [facility] #[id number], TAKE TWO TABLETS BY MOUTH DAILY ON [...] diverticulitis. Repeat in 10 years. 2battery change 02535,2006,2011,2012 41 vessel 5Septal myomectomy, mitral valve replacement 6with decompression and irrigation and debridement 7diverticulosis with polypectomy showing hyperplastic polyp Social History Social History Type Response Smoking Status Former smoker; Type: Cigarettes; Tobacco use per day: 1 Pack1 1Quit in 1995 Assessment and Plan No data available for this section
--- OUTSIDE RECORDS SUMMARY | 2017-01-06 14:53 | XMS REPORT | Referral Summary ---
Author Author [facility] Organization [facility] Address Unknown Phone Unavailable Care Team Providers Care Training Development Director Name Role Phone Yfn Green Primary Care Physician [phone] Encounter VC Date(s): 04/27/15 - 04/27/15 [facility], Surgery [address] [place] [address] [place] [address] [place] Discharge Diagnosis: Abnormal CT scan Discharge Diagnosis: History of prosthetic heart valve Discharge Diagnosis: History of diverticulitis Discharge Disposition: 01-Home or Self Care Attending Physician: Deshaun Oliver MD Admitting Physician: Deshaun Oliver MD Referring Physician: Alexander Green MD Vital Signs Most recent to 1 oldest [Reference Range]: Temperature Tympanic 36.9 degC [36.6-38.1 degC] (04/27/15 9:47 AM) Blood Pressure 126/68 mmHg [90-140/60-90 mmHg] (04/27/15 9:47 AM) Problem List Condition Effective Dates Status [...] Daily, # 30 tabs, 0 Refill(s), Pharmacy: [facility] # [id number], 1 tabs Oral Daily Start Date: 06/11/15 [...] q12hr, # 6 Each, 0 Refill(s), Pharmacy: [facility] #[id number], 1 mL SubCutaneous q12hr Start Date: 05/27/15 Status: Ordered Metoprolol Tartrate 25 mg oral tablet See Instructions, TAKE ONE TABLET BY MOUTH DAILY, # 30 tabs, 2 Refill(s), eRx: [facility] #[id number], TAKE ONE TABLET BY MOUTH DAILY Start Date: 08/24/15 Status: Ordered nitroglycerin 0.4 mg sublingual tablet 1 tabs, SubLingual, q5min, as needed for chest pain, # 100 tabs, 0 Refill(s) Start Date: 07/08/14 Status: Ordered [employer] 5 mg-325 mg oral tablet 1 tabs, [...] DAILY, # 30 tabs, 2 Refill(s), eRx: [facility] #[id number], TAKE ONE TABLET BY MOUTH DAILY Start Date: 09/14/15 Status: Ordered sertraline 100 mg oral tablet See Instructions, TAKE ONE TABLET BY MOUTH DAILY, # 30 tabs, 3 Refill(s), eRx: [facility] #[id number], TAKE ONE TABLET BY MOUTH DAILY Start Date: 05/18/15 Status: Ordered Vitamin D with Minerals oral tablet 1 tabs, Oral, Daily, # 30 tabs, 0 Refill(s) Start Date: 03/17/15 Status: Ordered warfarin 2 mg oral tablet See Instructions, TAKE TWO TABLETS BY MOUTH DAILY ON SATURDAY, SATURDAY, AND SATURDAY., # 78 tabs, 5 Refill(s), eRx: [facility] #[id number], TAKE TWO TABLETS BY MOUTH DAILY ON [...] in 10 years 08/19/06 Replacement/mechanical mitral valve 2014 colonoscopy with biopsy indicates history of diverticulitis. Repeat in 10 years. 2battery change 37938,2005,2011,2012 41 vessel 5Septal myomectomy, mitral valve replacement 6with decompression and irrigation and debridement 7diverticulosis with polypectomy showing hyperplastic polyp Social History Social History Type Response Smoking Status Former smoker; Type: Cigarettes; Tobacco use per day: 1 Pack1 1Quit in 1995 Assessment and Plan Extracted from: Title: Ambulatory Patient Education Author: Deshaun Oliver MD Date: 04/27 Cardiovascular Anticoagulation, Generic Anticoagulants are medicines used to prevent clots from developing in your veins. These medicine are also known as blood thinners. If blood clots are untreated, they could travel to your lungs. This is called a pulmonary embolus. A blood clot in your lungs can be fatal. Health care providers often use anticoagulants to prevent clots following surgery. Anticoagulants are also used along with aspirin when the heart is not getting enough blood. Another anticoagulant called warfarin is started 2 to 3 days after a rapid- acting injectable anticoagulant is started. The rapid-acting anticoagulants are usually continued until warfarin has begun to work. Your health care provider will specialty plant supervisor this length of time by blood tests known as the prothrombin time (PT ) and International Normalization Ratio (INR). This means that your blood is at the necessary and best level to prevent clots. RISKS AND COMPLICATIONS If you have received recent epidural anesthesia, spinal anesthesia, or a spinal tap while receiving anticoagulants, you are at risk for developing a blood clot in or around the spine. This condition could result in long-term or permanent paralysis. Because anticoagulants thin your blood, severe bleeding may occur from any tissue or organ. Symptoms of the blood being too thin may include: Bleeding from the nose or gums that does not stop quickly. Blood in bowel movements which may appear as bright red, dark, or black tarry stools. Blood in the urine which may appear as pink, red, or brown urine. Unusual bruising or bruising easily. A cut that does not stop bleeding within 10 minutes. Vomiting blood or continuous nausea for more than 1 day. Coughing up blood. Broken blood vessels in your eye (subconjunctival hemorrhage). Abdominal or back pain with or without flank bruising. Sudden, severe headache. Sudden weakness or numbness of the face, arm, or leg, especially on one side of the body. Sudden confusion. Trouble speaking (aphasia) or understanding. Sudden trouble seeing in one or both eyes. Sudden trouble walking. Dizziness. Loss of balance or coordination. Vaginal bleeding. Swelling or pain at an injection site. Superficial fat tissue (necrosis) which may cause skin scarring. This is more common in women and may first present as pain in the waist, thighs , or buttocks. Fever. Too little anticoagulation continues to allow the risk for blood clots. HOME CARE INSTRUCTIONS Due to the complications of anticoagulants, it is very important that you take your anticoagulant as directed by your health care provider. Anticoagulants need to be taken exactly as instructed. Be sure you understand all your anticoagulant instructions. Keep all follow-up appointments with your health care provider as directed. It is very important to keep your appointments. Not keeping appointments could result in a chronic or permanent injury, pain, or disability. Warfarin. Your health care provider will advise you on the length of treatment (usually 36 months, sometimes lifelong). Take warfarin exactly as directed by your health care provider. It is recommended that you take your warfarin dose at the same time of the day. It is preferred that you take warfarin in the late afternoon. If you have been told to stop taking warfarin, do not resume taking warfarin until directed to do so by your health care provider. Follow your health care provider's instructions if you accidentally take an extra dose or miss a dose of warfarin. It is very important to take warfarin as directed since bleeding or blood clots could result in chronic or permanent injury, pain, or disability. Too much and too little warfarin are both dangerous. Too much warfarin increases the risk of bleeding. Too little warfarin continues to allow the risk for blood clots. While taking warfarin, you will need to have regular blood tests to measure your blood clotting time. These blood tests usually include both the prothrombin time (PT) and International Normalized Ratio (INR) tests. The PT and INR results allow your health care provider to adjust your dose of warfarin. The dose can change for many reasons. It is critically important that you have your PT and INR levels drawn exactly as directed. Your warfarin dose may stay the same or change depending on what the PT and INR results are. Be sure to follow up with your health care provider regarding your PT and INR test results and what your warfarin dosage should be. Many medicines can interfere with warfarin and affect the PT and INR results. You must tell your health care provider about any and all medicines you take, this includes all vitamins and supplements. Ask your health care provider before taking these. Prescription and yizf-ums-zmmmrll medicine consistency is critical to warfarin management. It is important that potential interactions are checked before you start a new medicine. Be especially cautious with aspirin and anti-inflammatory medicines. Ask your health care provider before taking these. Medicines such as antibiotics and acid-reducing medicine can interact with warfarin and can cause an increased warfarin effect. Warfarin can also interfere with the effectiveness of medicines you are taking. Do not take or discontinue any prescribed or effm-jtv-xhseceg medicine except on the advice of your health care provider or pharmacist. Some vitamins, supplements, and herbal products interfere with the effectiveness of warfarin. Vitamin E may increase the anticoagulant effects of warfarin. Vitamin K may can cause warfarin to be less effective. Do not take or discontinue any vitamin, supplement, or herbal product except on the advice of your health care provider or pharmacist. Eat what you normally eat and keep the vitamin K content of your diet consistent. Avoid major changes in your diet, or notify your health care provider before changing your diet. Suddenly getting a lot more vitamin K could cause your blood to clot too quickly. A sudden decrease in vitamin K intake could cause your blood to clot too slowly. These changes in vitamin K intake could lead to dangerous blood clotsor to bleeding. To keep your vitamin K intake consistent, you must be aware of which foods contain moderate or high amounts of vitamin K. Some foods high in vitamin K include spinach, kale, broccoli, cabbage, greens, Antlers sprouts, asparagus, Bok [place]ma[place], coleslaw, parsley, and green tea. Arrange a visit with a dietitian to answer your questions. If you have a loss of appetite or get the stomach flu (viral gastroenteritis), talk to your health care provider as soon as possible. A decrease in your normal vitamin K intake can make you more sensitive to your usual dose of warfarin. Some medical conditions may increase your risk for bleeding while you are taking warfarin. A fever, diarrhea lasting more than a day, worsening heart failure, or worsening liver function are some medical conditions that could affect warfarin. Contact your health care provider if you have any of these medical conditions. Alcohol can change the body's ability to handle warfarin. It is best to avoid alcoholic drinks or consume only very small amounts while taking warfarin. Notify your health care provider if you change your alcohol intake. A sudden increase in alcohol use can increase your risk of bleeding. Chronic alcohol use can cause warfarin to be less effective. Be careful not to cut yourself when using sharp objects or while shaving. Inform all your health care providers and your dentist that you take an anticoagulant. Limit physical activities or sports that could result in a fall or cause injury. Avoid contact sports. Wear medical alert jewelry or carry a medical alert card. SEEK IMMEDIATE MEDICAL CARE IF: You cough up blood. You have dark or black stools or there is bright red blood coming from your rectum. You vomit blood or have nausea for more than 1 day. You have blood in the urine or pink colored urine. You have unusual bruising or have increased bruising. You have bleeding from the nose or gums that does not stop quickly. You have a cut that does not stop bleeding within a 23 minutes. You have sudden weakness or numbness of the face, arm, or leg, especially on one side of the body. You have sudden confusion. You have trouble speaking (aphasia) or understanding. You have sudden trouble seeing in one or both eyes. You have sudden trouble walking. You have dizziness. You have a loss of balance or coordination. You have a sudden, severe headache. You have a serious fall or head injury, even if you are not bleeding. You have swelling or pain at an injection site. You have unexplained tenderness or pain in the abdomen, back, waist, thighs or buttocks. You have a fever. Any of these symptoms may represent a serious problem that is an emergency. Do not wait to see if the symptoms will go away. Get medical help right away. Call your local emergency services (911 in [place] Do not drive yourself to the hospital. Document Released: 08/05/2006 Document Revised: 08/10/2014 Document Reviewed: [employer] Patient Information 2015 [employer]. This information is not intended to replace advice given to you by your health care provider. Make sure you discuss any questions you have with your health care provider. No follow up information was provided. Extracted from: Title: Office Visit Note Author: Deshaun Oliver MD Date: 04/27/15 Assessment/Plan 1.Abnormal CT scan Ordered: Office Visit Level 4 New [address]1023 2.History of diverticulitis Ordered: Office Visit Level 4 New [address]228 3.History of prosthetic heart valve Ordered: Office Visit Level 4 New [address]109 Plan: Cardiac Clearance Followed by Colonoscopy. Patient Will Need to Be Bridged with Lovenox. I did review the patient's chart including office note performed by his primary care physicianfrom April 21, 2015. Reviewed CT scan performed on March 24, 2015 that revealed a short focal segment of wall thickeninginvolving the proximal sigmoid colon. This was felt to be perhaps secondary to diverticulitis but an underlying neoplasm could not be ruled outand direct visualization was recommended. Reviewed prior colonoscopy report fromJuly 07, 2007which revealeda component of sigmoid diverticulosis and a singlepolyp that was removed endoscopically and returned as that of a hyperplastic polyp. I informed the patient that I would recommend that he return to his cardiologistand once he has been deemed stable from a cardiac standpointI would then recommend proceeding with colonoscopy for further evaluation. Risk of endoscopy was discussed with the patient. Risks include but are not inclusive of bleeding and/or perforation requiring surgery. Patient understood andagreed with proposed algorithm/plan at this time. Once he has been deemed stable from cardiac standpoint by his cardiologistpatient will be scheduled at that time. He will need to be bridged with Lovenox given his history for aprosthetic mitral bowel.
--- OUTSIDE RECORDS SUMMARY | 2017-01-06 14:53 | XMS REPORT | Referral Summary ---
Author Author [facility] Care Organization [facility] Address Unknown Phone Unavailable Care Team Providers Care Medical Unit Secretary Name Role Phone Yfn Green Primary Care Physician [phone] Encounter VC Date(s): 06/11/15 - 06/11/15 [facility] [address] [place] [address]- Discharge Disposition: 01-Home or Self Care Attending [...] Daily, # 30 tabs, 0 Refill(s), Pharmacy: [facility] # [id number], 1 tabs Oral Daily Start Date: 06/11/15 [...] q12hr, # 6 Each, 0 Refill(s), Pharmacy: [facility] #[id number], 1 mL SubCutaneous q12hr Start Date: 05/27/15 Status: Ordered Metoprolol Tartrate 25 mg oral tablet See Instructions, TAKE ONE TABLET BY MOUTH DAILY, # 30 tabs, 1 Refill(s), eRx: [facility] #[id number], TAKE ONE TABLET BY MOUTH DAILY Start Date: 11/23/15 Status: Ordered nitroglycerin 0.4 mg sublingual tablet 1 tabs, SubLingual, q5min, as needed for chest pain, # 100 tabs, 0 Refill(s) Start Date: 07/08/14 Status: Ordered [place] 5 mg-325 mg oral tablet 1 tabs, [...] TABLET BY MOUTH DAILY, # 30 tabs, 5 Refill(s), eRx: [facility] #[id number], TAKE ONE TABLET BY MOUTH DAILY Start Date: 12/14/15 Status: Ordered Vitamin D with Minerals oral tablet 1 tabs, Oral, Daily, # 30 tabs, 0 Refill(s) Start Date: 03/17/15 Status: Ordered warfarin 2 mg oral tablet See Instructions, TAKE TWO TABLETS BY MOUTH DAILY ON SATURDAY, SATURDAY, AND SATURDAY., # 78 tabs, 5 Refill(s), eRx: [facility] #[id number], TAKE TWO TABLETS BY MOUTH DAILY ON [...] diverticulitis. Repeat in 10 years. 2battery change 08642,2006,2011,2012 41 vessel 5Septal myomectomy, mitral valve replacement [...] Released: 11/11/2001 Document Revised: 12/20/2014 Document Reviewed: [facility] Information [facility]. This information is not intended to [...] Daily, # 30 tabs, 0 Refill(s), Pharmacy: [facility] #[id number], 1 tabs Oral Daily predniSONE, 20 mg 1 tabs, Oral, Daily, X 5 days, # 5 tabs, 0 Refill(s), Pharmacy: [facility] #[id number], 1 tabs Oral Daily,x5 days
--- OUTSIDE RECORDS SUMMARY | 2017-01-06 14:53 | XMS REPORT | Referral Summary ---
Author Author [facility], [facility] Organization [facility] Address Unknown Phone Unavailable Care Team Providers Care Certified Orthotist Practice Manager Name Role Phone Yfn Green Primary Care Physician [phone] Encounter VC Date(s): 12/22/15 - 12/22/15 [facility] [address] [place] [address] Discharge Diagnosis: Depression Discharge Diagnosis: Hypertrophic cardiomyopathy Discharge Diagnosis: Benign essential hypertension Discharge Diagnosis: CAD (coronary artery disease) Discharge Disposition: 01-Home or Self Care Attending Physician: Alexander Green MD Admitting Physician: Alexander Green MD Vital Signs Most recent to 1 oldest [Reference Range]: Temperature Tympanic 36.2 degC [36.6-38.1 degC] *LOW* (12/22/15 8:04 AM) Peripheral Pulse 84 bpm Rate [60-100 bpm] (12/22/15 8:04 AM) Respiratory Rate 16 br/min [14-20 br/min] (12/22/15 8:04 AM) Blood Pressure 118/76 mmHg [90-140/60-90 mmHg] (12/22/15 8:04 AM) Problem List Condition Effective Dates Status [...] Daily, # 30 tabs, 0 Refill(s), Pharmacy: [facility] # [id number], 1 tabs Oral Daily Start Date: 06/11/15 [...] q12hr, # 6 Each, 0 Refill(s), Pharmacy: [facility] #[id number], 1 mL SubCutaneous q12hr Start Date: 05/27/15 Status: Ordered Metoprolol Tartrate 25 mg oral tablet See Instructions, TAKE ONE TABLET BY MOUTH DAILY, # 30 tabs, 1 Refill(s), eRx: [facility] #[id number], TAKE ONE TABLET BY MOUTH DAILY Start Date: 11/23/15 Status: Ordered nitroglycerin 0.4 mg sublingual tablet 1 tabs, SubLingual, q5min, as needed for chest pain, # 100 tabs, 0 Refill(s) Start Date: 07/08/14 Status: Ordered [place] 5 mg-325 mg oral tablet 1 tabs, [...] DAILY, # 30 tabs, 5 Refill(s), eRx: [facility] #[id number], TAKE ONE TABLET BY MOUTH DAILY Start Date: 12/14/15 Status: Ordered Vitamin D with Minerals oral tablet 1 tabs, Oral, Daily, # 30 tabs, 0 Refill(s) Start Date: 03/17/15 Status: Ordered warfarin 2 mg oral tablet See Instructions, TAKE TWO TABLETS BY MOUTH DAILY ON SATURDAY, SATURDAY, AND SATURDAY., # 78 tabs, 5 Refill(s), eRx: [facility] #[id number], TAKE TWO TABLETS BY MOUTH DAILY ON SATURDAY, SATURDAY, AND SATURDAY. Start Date: 09/28/15 Status: Ordered Results Coagulation Most recent to 1 oldest [Reference Range]: PT Venous (12/22/15 7:52 AM) INR [0.8-1.2] 2.7 1 *HI* (12/22/15 7:52 AM) 1Result Comment: Normal (no anticoagulant): 0.8 - 1.2 Units Routine Therapeutic Range: 2.0 - 3.0 Units High Risk Therapeutic Range: 2.5 - 3.5 Units Immunizations Vaccine Date Refusal Reason influenza virus vaccine, inactivated 05/30/15 influenza virus vaccine, live 06/10/13 influenza virus vaccine, live 05/27/12 pneumococcal 23-polyvalent vaccine 06/07/10 Procedures Procedure Date Related Diagnosis Body Site Collection of venous blood by venipuncture 12/22/15 COLORECTAL CANCER SCREENING; COLONOSCOPY ON 05/26/15 INDIVIDUAL [...] diverticulitis. Repeat in 10 years. 2battery change 38182,2006,2011,2012 41 vessel 5Septal myomectomy, mitral valve replacement 6with decompression and irrigation and debridement 7diverticulosis with polypectomy showing hyperplastic polyp Social History Social History Type Response Smoking Status Former smoker; Type: Cigarettes; Tobacco use per day: 1 Pack1 1Quit in 1995 Assessment and Plan Extracted from: Title: Office Visit Note Author: Alexander Green MD Date: 12/22/15 Assessment/Plan Atherosclerotic heart disease of [place] coronary artery without angina pectoris , CAD (coronary artery disease) This appears to be chronic and stable. If he begins to have worsening chest pain or other problems he'll let us know. He'll continue to follow-up with Dr. Tam as well. Follow-up here in 3 months. Ordered: Office Visit Level 4 Est 68360 Benign essential hypertension Blood pressures well-controlled. Medications and treatments reviewed. No changes in treatment plan are recommended. Follow-up in 3 months with fasting lab then. Report card reviewed and provided today. Ordered: Office Visit Level 4 Est 83746 Depression, Major depressive disorder, recurrent, moderate Chronic and stable on current dose of sertraline no changes are recommended. Ordered: Office Visit Level 4 Est 80545 Hypertrophic cardiomyopathy, Other hypertrophic cardiomyopathy Chronic and relatively stable. Continuegood blood pressure control. Continue to follow-up with cardiology. Ordered: Office Visit Level 4 Est 39347 Monitoring for long-term anticoagulant use INR is drawn todaywill let him know if we need to make any changes. Ordered: Office Visit Level 4 Est 64543 PT
--- OUTSIDE RECORDS SUMMARY | 2017-01-06 14:53 | XMS REPORT | Referral Summary ---
Author Organization Unknown Address Unknown Phone Unavailable Care Team Providers Care Repairer Hairspring Name Role Phone Yfn Green Primary Care Physician [phone] Encounter VC Date(s): 10/11/14 - 10/11/14 [facility] ERAN Santiago, [place], Family [address] [place] [address] Discharge Diagnosis: Contusion of knee, left Discharge Diagnosis: Patellar bursitis of left knee Discharge Disposition: Home or Self Care Attending Physician: Rafa Yanez MD Admitting Physician: Rafa Yanez MD Vital Signs Most recent to 1 oldest [Reference Range]: Temperature Tympanic 37.0 degC [36.6-38.1 degC] (10/11/14 1:25 PM) Peripheral Pulse 80 bpm Rate [60-100 bpm] (10/11/14 1:25 PM) Blood Pressure 118/70 mmHg [90-140/60-90 mmHg] (10/11/14 1:25 PM) Problem List Condition Effective Dates Status Health Status Informant Benign essential Active hypertension (disorder)(Confirmed ) Pacemaker/defibr(Con 03/2007 Active firmed) Contusion of knee, Active left(Confirmed) Coronary Active arteriosclerosis (disorder)(Confirmed ) CAD (coronary artery Active disease)(Confirmed) History of TIA right Active side weakness(Confirmed) Hypertension(Confirm Active ed) Hypertrophic Active cardiomyopathy(Confi rmed) Patellar bursitis of Active left knee(Confirmed) Mitral valve 2009 Active disease(Confirmed) 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) Tobacco Active patient user(Confirmed) Allergies, Adverse Reactions, Alerts Substance Reaction Severity Status niacin SOA Active Medications aspirin 81 mg oral tablet 1 tabs, Oral, Daily, # 90 tabs, 0 Refill(s) Start Date: 07/08/14 Status: Ordered Bystolic 5 mg oral tablet 1 tabs, Oral, [...] 0 Refill(s) Start Date: 07/08/14 Status: Ordered nitroglycerin 0.4 mg sublingual tablet 1 tabs, SubLingual, q5min, as needed for chest pain, # 100 tabs, 0 Refill(s) Start Date: 07/08/14 Status: Ordered Norvasc 5 mg oral tablet 1 tabs, Oral, Daily, # 90 tabs, 0 Refill(s) Start Date: 07/08/14 Status: Ordered potassium chloride additive 20 mEq, Oral, Daily, 0 Refill(s) Start Date: 07/08/14 Status: Ordered sertraline 100 mg oral tablet 1 tabs, Oral, Daily, # 30 tabs, 5 Refill(s), Pharmacy: [facility] #[id number] , 1 tabs Oral Daily Start Date: 03/03/14 Status: Ordered sertraline 100 mg oral tablet 1 tabs, Oral, Daily, ref #[id number], # 90 tabs, 3 Refill(s), Pharmacy: [facility], 1 tabs Oral Daily,Instr:ref #[id number] Special Instructions: ref #[id number] Start Date: 10/05/14 Status: Ordered warfarin 2 mg oral tablet 2 tabs, Oral, Mon//, takes 3mg tabs also, # 90 tabs, 3 Refill(s), Pharmacy: [facility], 2 tabs Oral Mon/We/Fr,Instr:takes 3mg tabs also Special Instructions: takes 3mg tabs also Start Date: 10/05/14 Status: Ordered warfarin 3 mg oral tablet 1 tabs, Oral, Sun///, or as directed by doctor Takes 3mg and 2mg, # 90 tabs, 5 Refill(s), Pharmacy: [facility], 1 tabs Oral Sun///Sa, Instr:or as directed by doctor Takes 3mg and 2mg Special Instructions: or as directed by doctor Takes 3mg and 2mg Start Date: 10/05/14 Status: Ordered Results No data available for this section Immunizations Vaccine Date Refusal Reason influenza virus vaccine, live 06/10/13 influenza virus vaccine, live 05/27/12 pneumococcal 23-polyvalent vaccine 06/07/10 Procedures Procedure Date Related Diagnosis Body Site Cardiac catheterization1 08/19/12 CABG - Coronary artery bypass graft 08/19/08 Pacemaker 08/19/08 Removal/replacement pacemaker due to Staph 08/2008 Laminectomy/L2-42 2007 Colonoscope/repeat in 10 years 07-07-08/19/06 Replacement/mechanical mitral valve 90525,2005,2011,2012 2with decompression and irrigation and debridement 3diverticulosis with polypectomy showing hyperplastic polyp Social History Social History Type Response Smoking Status Former smoker; Type: Cigarettes; Tobacco use per day: 1 Pack1 1Quit in 1995 Assessment and Plan Extracted from: Title: Ambulatory Patient Education Author: Rafa Yanez MD Date: 10/11 Family Medicine Bursitis Bursitis is a swelling and soreness (inflammation ) of a fluid-filled sac ( bursa ) that overlies and protects a joint. It can be caused by injury, overuse of the joint, arthritis or infection. The joints most likely to be affected are the elbows, shoulders, hips and knees. HOME CARE INSTRUCTIONS Apply ice to the affected area for 15-20 minutes each hour while awake for 2 days. Put the ice in a plastic bag and place a towel between the bag of ice and your skin. Rest the injured joint as much as possible, but continue to put the joint through a full range of motion, 4 times per day. (The shoulder joint especially becomes rapidly "frozen" if not used.) When the pain lessens, begin normal slow movements and usual activities. Only take [id number] or prescription medicines for pain, discomfort or fever as directed by your caregiver. Your caregiver may recommend draining the bursa and injecting medicine into the bursa. This may help the healing process. Follow all instructions for follow-up with your caregiver. This includes any orthopedic referrals, physical therapy and rehabilitation. Any delay in obtaining necessary care could result in a delay or failure of the bursitis to heal and chronic pain. SEEK IMMEDIATE MEDICAL CARE IF: Your pain increases even during treatment. You develop an oral temperature above 102 F (38.9 C) and have heat and inflammation over the involved bursa. MAKE SURE YOU: Understand these instructions. Will watch your condition. Will get help right away if you are not doing well or get worse. Document Released: 08/02/2001 Document Revised: 10/27/2012 Document Reviewed: [employer] Patient Information 2014 [employer] [facility]. No follow up information was provided. Extracted from: Title: contusion left knee Author: Rafa Yanez MD Date: 10/11/14 Impression and Plan Diagnosis Patellar bursitis of left knee (ICD9 726.60, Discharge, Medical). Contusion of knee, left (ICD9 924.11, Discharge, Medical). Plan: Continue to avoid kneeling and squatting on that left knee. No new meds at this time. See me in 6 weeks and as needed., Do plenty of hamstring and quadriceps stretches.. Orders Orders (Selected) Outpatient Orders Order Office Visit Level 3 Est 00711: . Dx/Order Association Plan: Diagnosis: Contusion of knee, left Comment: Ordered: Office Visit Level 3 Est 37142; 10/11/14 13:30:00 HEALTH EDITOR, Contusion of knee, left | Patellar bursitis of left knee Diagnosis: Patellar bursitis of left knee Comment: Ordered: Office Visit Level 3 Est 93097; 10/11/14 13:30:00 HEALTH EDITOR, Contusion of knee, left | Patellar bursitis of left knee End of Orders .
--- OUTSIDE RECORDS SUMMARY | 2017-01-06 14:53 | XMS REPORT | Referral Summary ---
Author Author [facility] ERAN Santiago [place], [facility] Organization [facility] ERAN Santiago [place] [facility] Address Unknown Phone Unavailable Care Team Providers Care Ticket Collector Or Usher Name Role Phone Yfn Green Primary Care Physician [phone] Encounter VC Date(s): 05/30/15 - 05/30/15 [facility] ERAN Santiago [place] [address] [place] [address] Discharge Diagnosis: Benign essential hypertension Discharge Diagnosis: [...] Daily, # 30 tabs, 0 Refill(s), Pharmacy: [facility] # [id number], 1 tabs Oral Daily Start Date: 06/11/15 [...] q12hr, # 6 Each, 0 Refill(s), Pharmacy: [facility] #[id number], 1 mL SubCutaneous q12hr Start Date: 05/27/15 Status: Ordered Metoprolol Tartrate 25 mg oral tablet See Instructions, TAKE ONE TABLET BY MOUTH DAILY, # 30 tabs, 1 Refill(s), eRx: [facility] #[id number], TAKE ONE TABLET BY MOUTH DAILY Start Date: 11/23/15 Status: Ordered nitroglycerin 0.4 mg sublingual tablet 1 tabs, SubLingual, q5min, as needed for chest pain, # 100 tabs, 0 Refill(s) Start Date: 07/08/14 Status: Ordered [place] 5 mg-325 mg oral tablet 1 tabs, [...] DAILY, # 30 tabs, 2 Refill(s), eRx: [facility] #[id number], TAKE ONE TABLET BY MOUTH DAILY Start Date: 09/14/15 Status: Ordered sertraline 100 mg oral tablet See Instructions, TAKE ONE TABLET BY MOUTH DAILY, # 30 tabs, 3 Refill(s), eRx: [facility] #[id number], TAKE ONE TABLET BY MOUTH DAILY Start Date: 05/18/15 Status: Ordered Vitamin D with Minerals oral tablet 1 tabs, Oral, Daily, # 30 tabs, 0 Refill(s) Start Date: 03/17/15 Status: Ordered warfarin 2 mg oral tablet See Instructions, TAKE TWO TABLETS BY MOUTH DAILY ON SATURDAY, SATURDAY, AND SATURDAY., # 78 tabs, 5 Refill(s), eRx: [facility] #[id number], TAKE TWO TABLETS BY MOUTH DAILY ON [...] diverticulitis. Repeat in 10 years. 2battery change 39352,2005,2011,2012 41 vessel 5Septal myomectomy, mitral valve replacement 6with decompression and irrigation and debridement 7diverticulosis with polypectomy showing hyperplastic polyp Social History Social History Type Response Smoking Status Former smoker; Type: Cigarettes; Tobacco use per day: 1 Pack1 1Quit in 1995 Assessment and Plan Extracted from: Title: Office Visit Note Author: Alexander Green MD Date: 05/30/15 Assessment/Plan Atherosclerotic heart disease of [place] coronary artery without angina pectoris , CAD (coronary artery disease) No current signs of ischemia. He continues to follow-up with his thermodynamic physicist as well. Recheck here in 3 months. Ordered: Office Visit Level 3 Est 11786 Benign essential hypertension, Essential (primary) hypertension Blood pressures well-controlled no change in current treatment recommended recheck in 3 months. Ordered: Office Visit Level 3 Est 06474 Hypertrophic cardiomyopathy, Other hypertrophic cardiomyopathy Chronic stable continue follow-up with his thermodynamic physicist. Follow-up here in 3 months. He is on anticoagulation therapy chronically. We'll see what his INR today shows and make further recommendations from there. Ordered: Office Visit Level 3 Est 61964 Orders: PT
--- OUTSIDE RECORDS SUMMARY | 2017-01-06 14:53 | XMS REPORT | Referral Summary ---
Author Author [facility] ERAN Santiago [place], [facility] Organization [facility] ERAN Santiago [facility] Address Unknown Phone Unavailable Care Team Providers Care Medical Tech Name Role Phone Yfn Green Primary Care Physician [phone] Encounter VC Date(s): 01/26/15 - 01/26/15 [facility] ERAN Santiago [place] [address] [place] [address]- Discharge Diagnosis: Acute UTI Discharge Diagnosis: Pain with urination Discharge Disposition: 01-Home or Self Care Attending Physician: Alexander Green MD Admitting Physician: Alexander Green MD Vital Signs Most recent to 1 oldest [Reference Range]: Temperature Tympanic 36.4 degC [36.6-38.1 degC] *LOW* (01/26/15 4:05 PM) Peripheral Pulse 80 bpm Rate [60-100 bpm] (01/26/15 4:05 PM) Respiratory Rate 16 br/min [14-20 br/min] (01/26/15 4:05 PM) Blood Pressure 132/62 mmHg [90-140/60-90 mmHg] (01/26/15 4:05 PM) Problem List Condition Effective Dates Status [...] Daily, # 30 tabs, 0 Refill(s), Pharmacy: [facility] # [id number], 1 tabs Oral Daily Start Date: 06/11/15 [...] q12hr, # 6 Each, 0 Refill(s), Pharmacy: [facility] #[id number], 1 mL SubCutaneous q12hr Start Date: 05/27/15 Status: Ordered metoprolol tartrate 25 mg oral tablet 25 mg 1 tabs, Oral, Daily, # 30 tabs, 3 Refill(s), Pharmacy: [facility] # [id number] Start Date: 04/26/15 Status: Ordered nitroglycerin 0.4 mg sublingual tablet 1 tabs, SubLingual, q5min, as needed for chest pain, # 100 tabs, 0 Refill(s) Start Date: 07/08/14 Status: Ordered [place] 5 mg-325 mg oral tablet 1 tabs, [...] DAILY, # 30 tabs, 3 Refill(s), eRx: [facility] #[id number], TAKE ONE TABLET BY MOUTH DAILY Start Date: 05/18/15 Status: Ordered Vitamin D with Minerals oral tablet 1 tabs, Oral, Daily, # 30 tabs, 0 Refill(s) Start Date: 03/17/15 Status: Ordered warfarin 2 mg oral tablet 2 tabs, Oral, Sat//, takes 3mg tabs also, # 90 tabs, 3 Refill(s), Pharmacy: [facility], 2 tabs Oral Sat//,Instr:takes 3mg tabs also Start Date: 10/05/14 Status: Ordered warfarin 3 mg oral tablet 1 tabs, Oral, Sat///, or as directed by doctor Takes 3mg and 2mg, # 90 tabs, 5 Refill(s), Pharmacy: [facility], 1 tabs Oral Sat///, Instr:or as directed by doctor Takes 3mg and 2mg Start Date: 10/05/14 Status: Ordered Results Urinalysis Most recent to 1 oldest [Reference Range]: UA Color Innis 1 *ABN* (01/26/15 4:00 PM) UA Appear Clear (01/26/15 4:00 PM) UA pH [5.0-8.0] - (01/26/15 4:00 PM) UA Leuk Est - [Negative] (01/26/15 4:00 PM) UA Nitrite - [Negative] (01/26/15 4:00 PM) UA Protein - [Negative] (01/26/15 4:00 PM) UA Glucose - [Negative] (01/26/15 4:00 PM) UA Ketones - [Negative] (01/26/15 4:00 PM) UA Urobilinogen - (01/26/15 4:00 PM) UA Bili [Negative] - (01/26/15 4:00 PM) UA Blood - (01/26/15 4:00 PM) UA Spec Grav - [1.003-1.030] (01/26/15 4:00 PM) Type Clean Catch (01/26/15 4:00 PM) UA WBC [0-4] 0-2 (01/26/15 4:00 PM) UA RBC [0-2] 0-2 (01/26/15 4:00 PM) Epithelial Cells 0-2 (01/26/15 4:00 PM) UA Mucous Present (01/26/15 4:00 PM) 1Result Comment: Unable to report dip result due to color interferance. Immunizations Vaccine Date Refusal Reason influenza virus [...] diverticulitis. Repeat in 10 years. 2battery change 60201,2005,2011,2012 41 vessel 5Septal myomectomy, mitral valve replacement 6with decompression and irrigation and debridement 7diverticulosis with polypectomy showing hyperplastic polyp Social History Social History Type Response Smoking Status Former smoker; Type: Cigarettes; Tobacco use per day: 1 Pack1 1Quit in 1995 Assessment and Plan Extracted from: Title: Office Visit Note Author: Alexander Green MD Date: 01/26/15 Assessment/Plan Acute UTI He's had some Pyridium earlier today's UA isn't real accurate. His only 0-2 WBCs with his symptoms concerned that this is infection and we will start Cipro 500 one by mouth twice a day 10 days. If he is not improving he'll let me know. Ordered: Office Visit Level 3 Est 87206 Pain with urination See above plan. Ordered: Office Visit Level 3 Est 18538 Orders: ciprofloxacin, 500 mg 1 tabs, Oral, q12hr, X 10 days, # 20 tabs, 0 Refill(s), Pharmacy: [facility] #[id number], 1 tabs Oral q12hr,x10 days
--- OUTSIDE RECORDS SUMMARY | 2017-01-06 14:54 | XMS REPORT | Continuity of Care Document ---
Author Author YUDI [facility] Organization [facility] Address Unknown Phone Unavailable Support Name Relationship Address Phone JAS CABALLERO MD Caregiver [address] [place] [address] [address] [place] [address] Unavailable JAS CABALLERO MD Caregiver [address] [place] [address] [address] [place] [address] Unavailable HAYDEE BURROWS MD Caregiver [address] [facility] [place] [address] Unavailable MARCELLO THOMPSON MD Caregiver [address] [facility] [place] [address] Unavailable KATELYN SANTANA Next Of Kin [address] [place] [address] Insurance Providers Guarantor Debbie Santana Address [address] [place] [address] Email [email or web address] Policy Number [id number] Subscriber's Name Debbie Santana Relationship 18 Self Group Number [id number] Effective Date 14 Advance Directives Directive Response Recorded Date/Time Advanced Directives Type None 03/18/16 11:56am Ordered Resuscitation Status Full Code 03/18/16 1:37pm Resuscitation Documents on File No 03/18/16 2:06pm DPOA for Healthcare Only Y Katelyn Santana, 03/18/16 2:06pm Living Will Yes 03/18/16 2:06pm Chief Complaint and Reason for Visit Chief Complaint CHEST PAIN RULE OUT OH Reason for Visit Hypertension Mixed hyperlipidemia NSTEMI (non-ST elevated myocardial infarction) Sleep apnea Hx of mitral valve replacement with mechanical valve Subtherapeutic anticoagulation Chest pain, rule out acute myocardial infarction Problems Active Problems Medical Problem Onset Date [...] pain, rule out acute myocardial infarction Unknown Medications Current Home Medications Medication Dose Units Route Directions Days Qty Instructions Start Date Aspirin (Aspir 81) 81 Mg Tablet. 81 Mg Oral Daily 04/15/10 Atorvastatin Calcium (Lipitor) 20 Mg Tablet 40 Mg Oral Daily 30 Days 60 Tablet 03/26/16 Cholecalciferol (Vitamin D3) (Vitamin D) 2,000 Unit Capsule 2,000 Unit Oral 3 Times A Week 07/10/14 Ferrous Sulfate (Iron) Unknown Strength Tablet 65 Mg Oral Twice A Week 03/18/16 Furosemide 40 Mg Tablet 40 Mg Oral [...] Problem Response Recorded Date/Time Onset Date Status Reason for Hospitalization CHEST PAIN, RULE OUT ACUTE MYOCARDIAL INFARCTION 03/26/2016 2:16pm Not Applicable Not Applicable Hx Substance Use No 03/18/2016 12:15pm Not Applicable Not Applicable Hx Alcohol Use No 03/18/2016 12:15pm Not Applicable Not Applicable Has the pt used tobacco in the last 12 months No 03/18/2016 2:13pm Not Applicable Not Applicable Tobacco Usage none 03/24/2016 11:16pm Not Applicable Not Applicable Query Response Start Date Stop Date Smoking Status Former smoker Hospital Discharge Instructions Instructions: Care Instructions: Reason for Hospitalization: CHEST PAIN, RULE OUT ACUTE MYOCARDIAL INFARCTION I was in the hospital because (patient own words): "chest pain(stabbing pain in chest)" Discharge Diet: Resume heart healthy diet Discharge Activity: may resume normal activity as tolerted Follow Up Appointments: Have INR drawn on Saturday at Dr Burrows or Dr. Caballero's office Follow up with Dr Caballero on at 9am Pending Lab / Results: No Pending Lab Patient Instructions: Resume home Warfarin schedule. Condition at time of discharge: Good Plan of Care Discharge Date 03/26/16 2:55pm Disposition 01 DISCHARGED HOME, SELF-CARE Instructions/Education Provided [facility] Prescriptions See Medication Section Care Plan and Goals See Discharge Instructions Section Functional Status Query Response Date Recorded Mobility Status Ambulatory March 26, 2016 2:16pm Assistive Devices None March 26, 2016 2:16pm Activity Limitations None March 26, 2016 2:16pm Feeding Ability Independent March 26, 2016 2:16pm Toileting Ability Independent March 26, 2016 2:16pm Grooming Ability Independent March 26, 2016 2:16pm Dressing Ability Independent March 26, 2016 2:16pm Driving Ability Independent March 26, 2016 2:16pm Housework Ability Independent March 26, 2016 2:16pm Meal Preparation Ability Independent March 26, 2016 2:16pm Stair Climbing Ability Independent March 26, 2016 2:16pm Ability to complete ADL's impeded by No change March 26, 2016 2:16pm Cognitive/Perceptual Impairments None March 26, 2016 2:16pm Preferred Method of Learning Reading Listening March 24, 2016 2:35pm Allergies, Adverse Reactions, Alerts Allergen Type Severity Reaction Status Last Updated venlafaxine HCl Allergy Unknown Active 03/18/16 Niacin Adverse Reaction Intermediate NAUSEA/VOMITING, RASH Active 03/18/16 Immunizations Query Response on File Recorded Date/Time Hx Influenza Vaccination Y MAY 2015 03/18/16 2:13pm Hx Pneumococcal Vaccination No 03/18/16 2:13pm Hx Influenza Vaccination Y MAY 2015 03/18/16 2:13pm Vital Signs Acute Vital Signs Vital Response Date/Time Temperature (Fahrenheit) 97.7 deg F (96.8 - 99.1) 03/26/2016 8:03am Temperature (Calculated Celsius) 36.38018 degrees C (36.0 - 37.3) 03/26/2016 8:03am Temperature Source Oral 03/23/2016 4:16pm Pulse Rate (adult) 73 bpm (60 - 100) 03/26/2016 8:03am Respiratory Rate 28 breaths/min (10 - 20) 03/26/2016 8:03am O2 Sat by Pulse Oximetry 95 % (90 - 100) 03/26/2016 8:03am Oxygen Delivery Method Room Air 03/23/2016 4:16pm Oxygen Delivery Method Room Air 03/26/2016 8:03am Oxygen Flow Rate 2.00 L/min 03/19/2016 6:15am Blood Pressure 110/62 mm Hg 03/26/2016 8:03am Blood Pressure Source Automatic Cuff 03/26/2016 8:03am Height (Feet) 5 feet 03/26/2016 11:15am Height (Inches) 10.00 inches 03/26/2016 11:15am Weight (Kilograms) 129.000 kg 03/26/2016 8:03am Body Mass Index (BMI) 42.8 03/18/2016 2:05pm Results Laboratory Results Test Name Result Units Flags Reference Collection Date/Time Result Date/ Time Comments White Blood Count 7.2 T/MM3 4.5-11.0 03/26/2016 9:07am 03/26/2016 9: 13am Red Blood Count 6.16 M/MM3 H 4.50-5.90 03/26/2016 9:07am 03/26/2016 9: 13am Hemoglobin 16.3 GM/DL 13.5-17.5 03/26/2016 9:am 03/26/2016 9:13am Hematocrit 49.6 % 41-53 03/26/2016 9:07am 03/26/2016 9:13am Mean Corpuscular Volume 80.5 UM3 80-100 03/26/2016 9:07am 03/26/2016 9: 13am Mean Corpuscular Hemoglobin 26.5 UUG 26-34 03/26/2016 9:07am 2015 9:13am Mean Corpuscular Hemoglobin Concent 32.9 GM/DL 31-37 03/26/2016 9:07am 03/26/2016 9:13am RDW Standard Deviation 44.5 FL 36.9-50.2 03/26/2016 9:07am 03/26/2016 9 :13am Platelet Count 179 T/MM3 130-400 03/26/2016 9:07am 03/26/2016 9:13am Mean Platelet Volume 8.4 UM3 L 9.4-12.4 03/26/2016 9:07am 03/26/2016 9: 13am Neutrophils (%) (Auto) 74.7 % H 33-66 03/22/2016 4:47am 03/22/2016 5: 03am Lymphocytes (%) (Auto) 13.6 % L 23-45 03/22/2016 4:47am 03/22/2016 5: 03am Monocytes (%) (Auto) 8.7 % 0-9.0 03/22/2016 4:47am 03/22/2016 5:03am Eosinophils (%) (Auto) 2.6 % 0-4 03/22/2016 4:47am 03/22/2016 5:03am Basophils (%) (Auto) 0.1 % 0-2 03/22/2016 4:47am 03/22/2016 5:03am Immature Granulocyte % (Auto) 0.3 % 0.0-0.5 03/22/2016 4:47am 2015 5:03am Absolute Neutrophils (auto) 5.2 T/MM3 1.8-7.7 03/22/2016 4:47am 2015 5:03am Absolute Lymphocytes (auto) 1.0 T/MM3 1-4.8 03/22/2016 4:47am 2015 5:03am Absolute Monocytes (auto) 0.6 T/MM3 0-0.8 03/22/2016 4:47am 03/22/2016 5:03am Absolute Eosinophils (auto) 0.2 T/MM3 0-0.5 03/22/2016 4:47am 2015 5:03am Absolute Basophils (auto) 0.0 T/MM3 0-0.2 03/22/2016 4:47am 03/22/2016 5:03am Absolute Immature Granulocyte (auto 0.02 T/MM3 0.00-0.03 03/22/2016 4: 47am 03/22/2016 5:03am Prothromb Time International Ratio 3.53 H 0.99-1.21 03/26/2016 9:0703/26/2016 9:26am THERAPUTIC RANGE=2.00-3.00 FOR ANTI-THROMBOSIS THERAPUTIC RANGE=2.50-3.50 FOR IMPLANTED VALVE Activated Partial Thromboplast Time 68.9 SEC H 24-36 03/26/2016 5:01am 03/26/2016 5:25am Icterus Index < 2 0-7 03/26/2016 9:07am 03/26/2016 9:27am Chemistry Specimen Hemolysis < 15 0-25 03/26/2016 9:03/26/2016 9 :27am 0-25: Specimen Exhibited No Hemolysis. Turbidity < 20 0-20 03/26/2016 9:0703/26/2016 9:27am Sodium Level 139 MEQ/L 134-144 03/26/2016 9:0703/26/2016 9:27am Potassium Level 4.1 MEQ/L 3.6-5 03/26/2016 9:03/26/2016 9:27am Chloride Level 95 MEQ/L L 98-107 03/26/2016 9:03/26/2016 9:27am Carbon Dioxide Level 32 MEQ/L H 22-30 03/26/2016 9:03/26/2016 9: 27am Anion Gap 12 MEQ/L 5-15 03/26/2016 9:03/26/2016 9:27am Blood Urea Nitrogen 20.0 MG/DL 9-20 03/26/2016 9:03/26/2016 9: 27am Creatinine 1.4 MG/DL 0.8-1.5 03/26/2016 9:03/26/2016 9:27am BUN/Creatinine Ratio 14 RATIO 6-03/26/2016 9:03/26/2016 9:27am Glomerular Filtration Rate Calc 52 03/26/2016 9:03/26/2016 9: 27am Glucose Level 95 MG/DL 75-110 03/26/2016 9:0703/26/2016 9:27am Calculated Osmolality 271 MOSM/KG 261-280 03/26/2016 9:03/26/2016 9:27am Calcium Level 9.3 MG/DL 8.4-10.2 03/26/2016 9:0703/26/2016 9:27am Troponin I 0.046 ng/ml 0-0.12 03/19/2016 5:55am 03/19/2016 6:34am Troponin values with a difference of 55% increase from orginal troponin value represent a true biological DELTA value. (%increase Calc=Orginal Troponin value, divided by subsequent Troponin value, multiplied by 100) QG-Nvr-U-Type Natriuretic Peptide 1250 PG/ML H 0-175 03/18/2016 12:00pm 03/18/2016 12:32pm Rule in cut points: <50 years old=450; 50-75 years old=900; >75 years old=1800; When utilizing ProBNP rule-in cut points, adjustment for impaired renal function is typically not required. Magnesium Level 2.3 MG/DL 1.6-2.3 03/26/2016 9:03/26/2016 9:27am Arterial Blood pH 7.367 7.350-7.450 03/21/2016 [...] CLEAR 03/18/2016 8:38pm 03/18/2016 8:54pm Urine Specific [place] 1.025 1.015-1.025 03/18/2016 8:38pm 2015 8:54pm Urine [...] CULT NOT INDICATED 03/18/2016 8:38pm 2015 9:16pm Name: DEBBIE SANTANA Unit #: [id number] : [id number] Sex: M Admit Date: Loc / Svc: ED Discharge Date: DIAGNOSTIC IMAGING REPORT Report #: [id number] [facility] CHERYL Coffman Indication: ITS.REASON: chest pain PROCEDURE: CHEST 1 VIEW: Encounter: Initial Comparison: October 19, 2012 Findings: The lungs are stable in appearance without new focal airspace consolidation. There is no pleural effusion or pneumothorax. Cardiac silhouette is stable in size. Pulmonary vascularity is more prominent. Mediastinal contours are stable. Prior sternotomy. Left cardiac pacemaker defibrillator. IMPRESSION: Mild interstitial edema. No pneumonia. . Procedures No known history of procedures. Encounters Encounter Location Arrival/Admit Date Discharge/Depart Date Attending Provider Discharged Inpatient [facility] 03/20/16 12:54pm 03/26/16 2:55pm JAS CABALLERO MD Recent Diagnosis Hypertension Mixed hyperlipidemia NSTEMI (non-ST elevated myocardial infarction) Sleep apnea Subtherapeutic anticoagulation Chest pain, rule out acute myocardial infarction
--- OUTSIDE RECORDS SUMMARY | 2017-01-06 14:54 | XMS REPORT | Referral Summary ---
Author Author [facility], [facility] Organization [facility] Address Unknown Phone Unavailable Care Team Providers Care Medicinal Chemist Name Role Phone Yfn Green Primary Care Physician [phone] Encounter Date(s): 04/21/15 - 04/21/15 [facility] [address] [place] [address] [place] Discharge Diagnosis: Hypertrophic cardiomyopathy Discharge Diagnosis: Benign essential hypertension Discharge Diagnosis: Anginal pain Discharge Diagnosis: CAD (coronary artery disease) Discharge Diagnosis: Abnormal CT of the abdomen Discharge Disposition: 01-Home or Self Care Attending Physician: Alexander Geren MD Admitting Physician: Alexander Green MD Referring Physician: Alexander Green MD Vital Signs Most recent to 1 oldest [Reference Range]: Temperature Tympanic 36.9 degC [36.6-38.1 degC] (04/21/15 8:05 AM) Peripheral Pulse 84 bpm Rate [60-100 bpm] (04/21/15 8:05 AM) Respiratory Rate 16 br/min [14-20 br/min] (04/21/15 8:05 AM) Blood Pressure 124/84 mmHg [90-140/60-90 mmHg] (04/21/15 8:05 AM) Problem List Condition Effective Dates Status [...] Daily, # 30 tabs, 0 Refill(s), Pharmacy: [facility] # [id number], 1 tabs Oral Daily Start Date: 06/11/15 [...] q12hr, # 6 Each, 0 Refill(s), Pharmacy: [facility] #[id number], 1 mL SubCutaneous q12hr Start Date: 05/27/15 Status: Ordered Metoprolol Tartrate 25 mg oral tablet See Instructions, TAKE ONE TABLET BY MOUTH DAILY, # 30 tabs, 2 Refill(s), eRx: [facility] #[id number], TAKE ONE TABLET BY MOUTH DAILY Start Date: 08/24/15 Status: Ordered nitroglycerin 0.4 mg sublingual tablet 1 tabs, SubLingual, q5min, as needed for chest pain, # 100 tabs, 0 Refill(s) Start Date: 07/08/14 Status: Ordered [place] 5 mg-325 mg oral tablet 1 tabs, [...] DAILY, # 30 tabs, 2 Refill(s), eRx: [facility] #[id number], TAKE ONE TABLET BY MOUTH DAILY Start Date: 09/14/15 Status: Ordered sertraline 100 mg oral tablet See Instructions, TAKE ONE TABLET BY MOUTH DAILY, # 30 tabs, 3 Refill(s), eRx: [facility] #[id number], TAKE ONE TABLET BY MOUTH DAILY Start Date: 05/18/15 Status: Ordered Vitamin D with Minerals oral tablet 1 tabs, Oral, Daily, # 30 tabs, 0 Refill(s) Start Date: 03/17/15 Status: Ordered warfarin 2 mg oral tablet See Instructions, TAKE TWO TABLETS BY MOUTH DAILY ON SATURDAY, SATURDAY, AND SATURDAY., # 78 tabs, 5 Refill(s), eRx: [facility] #[id number], TAKE TWO TABLETS BY MOUTH DAILY ON [...] diverticulitis. Repeat in 10 years. 2battery change 06020,2005,2011,2012 41 vessel 5Septal myomectomy, mitral valve replacement 6with decompression and irrigation and debridement 7diverticulosis with polypectomy showing hyperplastic polyp Social History Social History Type Response Smoking Status Former smoker; Type: Cigarettes; Tobacco use per day: 1 Pack1 1Quit in 1995 Assessment and Plan Extracted from: Title: Ambulatory Patient Education Author: Alexander Green MD Date: Family Medicine Angina Pectoris Angina pectoris, often just called angina, is extreme discomfort in your chest, neck, or arm caused by a lack of blood in the middle and thickest layer of your heart wall (myocardium). It may feel like tightness or heavy pressure. It may feel like a crushing or squeezing pain. Some people say it feels like gas or indigestion. It may go down your shoulders, back, and arms. Some people may have symptoms other than pain. These symptoms include fatigue, shortness of breath, cold sweats, or nausea. There are four different types of angina: Stable anginaStable angina usually occurs in episodes of predictable frequency and duration. It usually is brought on by physical activity, emotional stress, or excitement. These are all times when the myocardium needs more oxygen. Stable angina usually lasts a few minutes and often is relieved by taking a medicine that can be taken under your tongue (sublingually). The medicine is called nitroglycerin. Stable angina is caused by a buildup of plaque inside the arteries, which restricts blood flow to the heart muscle ( atherosclerosis). Unstable anginaUnstable angina can occur even when your body experiences little or no physical exertion. It can occur during sleep. It can also occur at rest. It can suddenly increase in severity or frequency. It might not be relieved by sublingual nitroglycerin. It can last up to 30 minutes. The most common cause of unstable angina is a blood clot that has developed on the top of plaque buildup inside a coronary artery. It can lead to a heart attack if the blood clot completely blocks the artery. Microvascular anginaThis type of angina is caused by a disorder of tiny blood vessels called arterioles. Microvascular angina is more common in women. The pain may be more severe and last longer than other types of angina pectoris. Prinzmetal or variant anginaThis type of angina pectoris usually occurs when your body experiences little or no physical exertion. It especially occurs in the food safety technician hours. It is caused by a spasm of your coronary artery. HOME CARE INSTRUCTIONS Only take [id number] and prescription medicines as directed by your health care provider. Stay active or increase your exercise as directed by your health care provider. Limit strenuous activity as directed by your health care provider. Limit heavy lifting as directed by your health care provider. Maintain a healthy weight. Learn about and eat heart-healthy foods. Do not use any tobacco products including cigarettes, chewing tobacco or electronic cigarettes. SEEK IMMEDIATE MEDICAL CARE IF: You experience the following symptoms: Chest, neck, deep shoulder, or arm pain or discomfort that lasts more than a few minutes. Chest, neck, deep shoulder, or arm pain or discomfort that goes away and comes back, repeatedly. Heavy sweating with discomfort, without a noticeable cause. Shortness of breath or difficulty breathing. Angina that does not get better after a few minutes of rest or after taking sublingual nitroglycerin. These can all be symptoms of a heart attack, which is a medical emergency! Get medical help at once. Call your local emergency service (911 in [place] immediately. Do not drive yourself to the hospital and do not wait to for your symptoms to go away. MAKE SURE YOU: Understand these instructions. Will watch your condition. Will get help right away if you are not doing well or get worse. Document Released: 08/05/2006 Document Revised: 08/10/2014 Document Reviewed: ExitCare Patient Information 2015 [facility] [employer], [facility]. This information is not intended to replace advice given to you by your health care provider. Make sure you discuss any questions you have with your health care provider. No follow up information was provided. Extracted from: Title: Office Visit Note Author: Alexander Green MD Date: 04/21/15 Assessment/Plan Abnormal CT of the abdomen I'm going to speak to Dr. Celis about considering colonoscopy. Ordered: Office Visit Level 4 Est 13229 Anginal pain Increase metoprolol to 25 mg or 1 full tablet daily. I've asked him to see his wreath machine operator next week or 2. If his pain worsens prior to that or doesn't respond to rest he should be seen immediately. Ordered: Office Visit Level 4 Est 29863 Benign essential hypertension Chronic stable no change in current treatment. Ordered: Office Visit Level 4 Est 74209 CAD (coronary artery disease) Increase metoprolol as mentioned above. Ordered: Office Visit Level 4 Est 36260 Hypertrophic cardiomyopathy Continue current treatment without change. Ordered: Office Visit Level 4 Est 22856
--- OUTSIDE RECORDS SUMMARY | 2017-01-06 14:54 | XMS REPORT | Referral Summary ---
Author Author [facility], [facility] Organization [facility] Address Unknown Phone Unavailable Care Team Providers Care Methods Analyst Name Role Phone Yfn Green Primary Care Physician [phone] Encounter VC Date(s): 08/10/15 - 08/10/15 [facility] [address] [place] [address] Discharge Diagnosis: CAD (coronary artery disease) Discharge Disposition: 01-Home or Self Care Attending Physician: Alexander Green MD Admitting Physician: Alexander Green MD Vital Signs Most recent to 1 oldest [Reference Range]: Temperature Tympanic 35.8 degC [36.6-38.1 degC] *LOW* (08/10/15 1:17 PM) Peripheral Pulse 76 bpm Rate [60-100 bpm] (08/10/15 1:17 PM) Respiratory Rate 18 br/min [14-20 br/min] (08/10/15 1:17 PM) Blood Pressure 132/80 mmHg [90-140/60-90 mmHg] (08/10/15 1:17 PM) Problem List Condition Effective Dates Status [...] # 30 tabs, 0 Refill(s), Pharmacy: [facility] # [id number], 1 tabs Oral Daily Start Date: 06/11/15 [...] # 6 Each, 0 Refill(s), Pharmacy: [facility] #[id number], 1 mL SubCutaneous q12hr Start Date: 05/27/15 Status: Ordered metoprolol tartrate 25 mg oral tablet 25 mg 1 tabs, Oral, Daily, # 30 tabs, 3 Refill(s), Pharmacy: [facility] # [id number] Start Date: 04/26/15 Status: Ordered nitroglycerin 0.4 mg sublingual tablet 1 tabs, SubLingual, q5min, as needed for chest pain, # 100 tabs, 0 Refill(s) Start Date: 07/08/14 Status: Ordered Tarkio 5 mg-325 mg oral tablet 1 tabs, [...] days, # 30 Each, 0 Refill(s), Pharmacy: [facility] #[id number], Take 2 daily for 7 days Start Date: 08/10/15 Status: Ordered sertraline 100 mg oral tablet See Instructions, TAKE ONE TABLET BY MOUTH DAILY, # 30 tabs, 3 Refill(s), eRx: [facility] #[id number], TAKE ONE TABLET BY MOUTH DAILY Start Date: 05/18/15 Status: Ordered Vitamin D with Minerals oral tablet 1 tabs, Oral, Daily, # 30 tabs, 0 Refill(s) Start Date: 03/17/15 Status: Ordered warfarin 2 mg oral tablet 2 tabs, Oral, Sat//, takes 3mg tabs also, # 90 tabs, 3 Refill(s), Pharmacy: [facility], 2 tabs Oral Mon//,Instr:takes 3mg tabs also Start Date: 10/05/14 Status: Ordered warfarin 3 mg oral tablet 1 tabs, Oral, Sun///, or as directed by doctor Takes 3mg and 2mg, # 90 tabs, 5 Refill(s), Pharmacy: [facility], 1 tabs Oral Sun///, Instr:or as directed by doctor Takes 3mg and 2mg Start Date: 10/05/14 Status: Ordered Results Hematology Most recent to 1 oldest [Reference Range]: WBC [4.8-10.8 9.4 10*3/uL 10*3/uL] (08/10/15 2:10 PM) RBC [4.60-6.20] 6.48 *HI* (08/10/15 2:10 PM) Hgb [14.0-18.0 17.5 gm/dL gm/dL] (08/10/15 2:10 PM) Hct [42.0-52.0 %] 50.8 % (08/10/15 2:10 PM) MCV [82.0-99.0 fL] 78.4 fL *LOW* (08/10/15 2:10 PM) MCH [27.0-32.0 pg] 27.0 pg (08/10/15 2:10 PM) MCHC [32.0-36.0 34.4 gm/dL gm/dL] (08/10/15 2:10 PM) RDW [11.5-14.5 %] 14.8 % *HI* (08/10/15 2:10 PM) Platelet [150-400 272 10*3/uL 10*3/uL] (08/10/15 2:10 PM) MPV [8.8-14.8 fL] 9.2 fL (08/10/15 2:10 PM) Immature 0.3 % Granulocytes (08/10/15 2:10 PM) [0.0-1.0 %] Neutrophils [51-75 78 % %] *HI* (08/10/15 2:10 PM) Lymphocytes [20-46 11 % %] *LOW* (08/10/15 2:10 PM) Monocytes [4-11 %] 8 % (08/10/15 2:10 PM) Eosinophils [0-4 %] 3 % (08/10/15 2:10 PM) Basophils [0-2 %] 0 % (08/10/15 2:10 PM) Neutro Absolute 7.33 10*3 [1.90-7.00 10*3] *HI* (08/10/15 2:10 PM) Lymph Absolute 1.00 10*3 [0.80-3.30 10*3] (08/10/15 2:10 PM) Wirt Absolute 0.73 10*3 [0.30-1.00 10*3] (08/10/15 2:10 PM) Eos Absolute 0.25 10*3 [0.00-0.50 10*3] (08/10/15 2:10 PM) Baso Absolute 0.03 10*3 [0.00-0.20 10*3] (08/10/15 2:10 PM) Sed Rate [0-15] 2 (08/10/15 2:10 PM) Chemistry Most recent to 1 oldest [Reference Range]: Uric Acid [3.5-7.2 7.6 mg/dL mg/dL] *HI* (08/10/15 2:10 PM) Immunizations Vaccine Date Refusal Reason influenza virus vaccine, inactivated 05/30/15 influenza virus vaccine, live 06/10/13 influenza virus vaccine, live 05/27/12 pneumococcal 23-polyvalent vaccine 06/07/10 Procedures Procedure Date Related Diagnosis Body Site Collection of venous blood by venipuncture 08/10/15 COLORECTAL CANCER SCREENING; COLONOSCOPY ON 05/26/15 INDIVIDUAL [...] diverticulitis. Repeat in 10 years. 2battery change [id number],2011,2012 41 vessel 5Septal myomectomy, mitral valve replacement 6with decompression and irrigation and debridement 7diverticulosis with polypectomy showing hyperplastic polyp Social History Social History Type Response Smoking Status Former smoker; Type: Cigarettes; Tobacco use per day: 1 Pack1 1Quit in 1995 Assessment and Plan Extracted from: Title: Office Visit Note Author: Alexander Green MD Date: 08/10/15 Assessment/Plan CAD (coronary artery disease) Chronic stable no signs of decompensation Left foot pain X-ray does not show any obvious abnormality. I think this is likely an exacerbation of osteoarthritis. I've recommended some laboratory studies to rule out infection including a CBC sedimentation rate and uric acid level. No pain on prednisone 20 mg a day for the next 7 days. If not improving through the weekend he'll let me know. Avoid any heavy walking or use. Ordered: CBC w/ Differential Office Visit Level 3 Est 13545 Sedimentation Rate Uric Acid XR Foot Complete Left Orders: HYDROcodone-acetaminophen, 1 tabs, Oral, q6hr, as needed for pain, # 30 tabs, 0 Refill(s) predniSONE, See Instructions, Take 2 daily for 7 days, # 30 Each, 0 Refill(s) , Pharmacy: [facility] #[id number], Take 2 daily for 7 days
[2017-01-06] MEDS ORDERED: ATOR20TA59 PO (14:55)
[2017-01-06] MEDS ORDERED: METO-277 PO (14:56)
[2017-01-06] MEDS ORDERED: METO-279 PO (14:56)
--- NOTE | 2017-01-06 15:07 | ERPDOC ---
Departure Disposition Decision Date: January 06, 2017 Disposition Decision Time: 17:42 Disposition: 01 DISCHARGED HOME, SELF-CARE Impression Impression Impression: Primary Impression: Headache Additional Impressions: Blurred vision, bilateral Bilateral tinnitus Chest pain Severity: Moderate Condition: Improved Seen By: Mid-level only Referrals: MAE FARFAN (Family) Patient Instructions: Acute Headache (ED), Chest Pain (ED) Problems/Meds/Labs Reviewed?: Yes Medications reviewed and manag: Yes Additional Instructions: Your head CT did not show any acute findings. Your INR was 2.26 Your labs indicate that your are dry. Stay hydrated. Follow with your PCP in next 1-2 days for re-evaluation. Follow treatment plan. Follow up care ordered?: Yes Mental Status: Alert, Oriented HPI - Headache General Chief Complaint: Headache Stated Complaint: BLURRED VISION,MORILLO Time Seen by Provider: 15:03 Source: patient HPI - Headache Initial Comments 61 YO M presents to ED with report of headache of right frontal area that started yesterday. This afternoon patient says that he went into the bathroom and developed blurred vision for approx 10-15 minutes. Says that he has had brief episodes of blurred vision for a few seconds until his eye could focus but this last much longer. Last year had blurred vision that lasted longer accompanied by right arm and leg weakness. Was dx. with TIA. Patient also reports have tinnitus with MORILLO but says he does get tinnitus intermittent without MORILLO. No chronic MORILLO hx. After patient arrived patient reported some anterior chest pain. Says that he thinks it is anxiety from worrying about a TIA. Patient does have a cardiac hx. Patient denies fever, chills, SOA, nausea, vomiting, diaphoresis, hemiparesis or ataxia. Pain Scale: Now: 2/10 (chest pain), 8/10 (headache) Severity/Quality: pressure, throbbing Location: frontal (right) Prior Headaches/Recent Trauma: occasional headaches Associated Symptoms: DENIES: confusion, facial pain, fatigue, fever/chills, flushing, nasal congestion, nasal drainage, nausea/vomiting, numbness in legs/ feet, seizures, sinus infection, stiff neck, weakness Allergies: Coded Allergies: venlafaxine HCl (Verified Allergy, Unknown, 04/14/16) niacin (Verified Adverse Reaction, Intermediate, NAUSEA/VOMITING, RASH, 8/ 27/16) Past History Past Medical History Metabolic: hypertension Cardiac: CAD, CHF Respiratory: pulmonary embolus GI: GERD Male: UTI, kidney stones Neurological: TIA Musculoskeletal: DENIES: rheumatoid arthritis Psychological: depression Surgical History General: back Cardiac: cardiac bypass, cardiac cath, implantable defib, pacemaker, valve replacement Joint: other Family History Family PMH: FOUND: cancer Vaccines Hx Influenza Vaccination: Yes (MAY 2015) Hx Pneumococcal Vaccination: No Social History Does patient use chewing tobac: No Second Hand Exposure: No Substance Use Type: does not use Alcohol Intake: none Sexuality: female partner Review of Systems Constitutional Constitutional: DENIES: chills, dizziness, fever, weakness Eyes General: DENIES: erythema, exudate Lids/Accessories: DENIES: erythema, swelling Vision: blurring, see HPI ENMT Ears: DENIES: pain Hearing: see HPI, tinnitus Sinuses: DENIES: congestion, rhinorrhea Mouth/Throat: DENIES: sore throat Cardiovascular Cardiac: chest pain, DENIES: murmur Rhythm/Rate: DENIES: palpitations Pulmonary Respiratory: DENIES: cough, dyspnea GI Upper Abdomen: DENIES: nausea, pain, vomiting Lower Abdomen: DENIES: diarrhea, pain General: DENIES: dysuria, pain Musculoskeletal General: DENIES: joint pain, pain, tenderness Integumentary Skin: DENIES: color change, itching, rash Neurological General: headache, DENIES: ataxia, change in strength, dysarthria, memory disturbances, numbness, paralysis/paresis, weakness Psychiatric Psychiatric: DENIES: anxiety, depression, nervousness Physical Exam General General Nourishment: well nourished, well developed, no acute distress, adult General Body Habitus: well groomed Vitals and Pain First Documented Vital Signs Date Time Temp Pulse Resp B/P Pulse Ox O2 Delivery O2 Flow Rate FiO2 01/06/17 14:50 99.2 79 18 130/60 96 Room Air Weight: Kilograms: Height (feet): 5 Height (inches): 10.00 Triage Pain Scale: Eyes (brief) Eyes Brief: found: EOMI, PERRL ENMT (brief) ENMT Brief: FOUND: TM clear, TM good light reflex, mucosa moist, NOT FOUND: nasal exudate, nasal swelling, pharnyx erythema Neck (brief) Neck: FOUND: trachea midline, NOT FOUND: adenopathy, spasm, tenderness, thyromegaly Respiratory (brief) Respiratory: FOUND: clear all lewis, equal bilaterally, symmetrical Cardiovascular (brief) Cardiac: FOUND: regular rate, regular rhythm Abdomen (brief) Abdominal Brief: FOUND: bowel normo active x4, soft, NOT FOUND: distended, tender Musculoskeletal (brief) Musculoskeletal Brief: NOT FOUND: deformity, tenderness Integumentary (brief) Integumentary Brief: FOUND: dry, pink, warm Neurologic (brief) Neurological Brief: FOUND: CN w/o gross def to obs Neurologic Mental Status: FOUND: alert, oriented (x3) Cranial Nerves: NOT FOUND: facial asymmetry Motor : Motor Location: foot extension, 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, 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 Motor Degree: 5 Sensation: FOUND: soft touch intact x4 ext Cerebellar: FOUND: tandem walk DTR's : DTR Location: Triceps, Patellar DTR Grade: 2+ Psychiatric (brief) Psychiatric Brief: FOUND: alert, normal affect, oriented Differential Diagnoses Considering: Cerebral Hemorrhage, Cervical Strain, CVA - Thrombotic, CVA - Hemorrhagic, Headache - Tension/Muscle, Increased ICP, Viral Syndrome, Other ( TIA) Considering: Acute IN, Anxiety/Panic, Angina Progress Results/Orders Orders Procedure Category Date Status Time Cmp - Comprehensive LAB 01/06/17 Complete Metabolic 15:14 Cbc W/Auto LAB 01/06/17 Complete Diff-Reflex Manual 15:14 Ct Head W/O Contrast CT 01/06/17 Resulted 15:14 Iv Lock (Ed Only) EDM 01/06/17 Transmitted 15:14 Tsh - Thyroid Stim LAB 01/06/17 Complete Hormone 15:14 Troponin I W LAB 01/06/17 Complete Hemolysis Index 15:14 EKG EKG 01/06/17 Taken 15:14 Normal Saline (Ns) PHA 01/06/17 Complete 16:00 Nitroglycerin PHA 01/06/17 Complete (Nitrostat) 16:30 INR LAB 01/06/17 Complete Hydromorphone PHA 01/06/17 Complete (Dilaudid) 16:30 Ondansetron Inj PHA 01/06/17 Complete (Zofran) 16:30 Lab Results Laboratory Tests Test 01/06/17 15:27 01/06/17 15:28 Prothromb Time International Ratio 2.26 White Blood Count 8.1T/MM3 Red Blood Count 6.06M/MM3 Hemoglobin 15.1GM/DL Hematocrit 45.4% Mean Corpuscular Volume 74.9UM3 Mean Corpuscular Hemoglobin 24.9UUG Mean Corpuscular Hemoglobin Concent 33.3GM/DL RDW Standard Deviation 45.7FL Platelet Count 189T/MM3 Mean Platelet Volume 8.9UM3 Immature Granulocyte % (Auto) 0.4% Neutrophils (%) (Auto) 80.3% Lymphocytes (%) (Auto) 10.0% Monocytes (%) (Auto) 6.8% Eosinophils (%) (Auto) 2.3% Basophils (%) (Auto) 0.2% Absolute Immature Granulocyte (auto 0.03T/MM3 Absolute Neutrophils (auto) 6.5T/MM3 Absolute Lymphocytes (auto) 0.8T/MM3 Absolute Monocytes (auto) 0.6T/MM3 Absolute Eosinophils (auto) 0.2T/MM3 Absolute Basophils (auto) 0.0T/MM3 Turbidity 43 Sodium Level 142MEQ/L Potassium Level 4.0MEQ/L Chloride Level 102MEQ/L Carbon Dioxide Level 27MEQ/L Anion Gap 13MEQ/L Blood Urea Nitrogen 22.0MG/DL Creatinine 1.1MG/DL Glomerular Filtration Rate Calc 68 BUN/Creatinine Ratio 20RATIO Glucose Level 115MG/DL Calculated Osmolality 277MOSM/KG Calcium Level 9.0MG/DL Total Bilirubin 1.60MG/DL Icterus Index < 2 Aspartate Amino Transf (AST/SGOT) 40U/L Alanine Aminotransferase (ALT/SGPT) 66U/L Alkaline Phosphatase 70U/L Troponin I 0.042ng/ml Total Protein 7.1G/DL Albumin 4.5G/DL Globulin 2.6G/DL Albumin/Globulin Ratio 1.7RATIO Thyroid Stimulating Hormone (TSH) 2.18MIU/L Chemistry Specimen Hemolysis 35 Medications Current ED Medications Sodium Chloride (NS) 500 ml @ 0 mls/hr Q0M ONCE IV Last administered on 16:13; Start 01/06/17 at 16:00; Stop 01/06/17 at 16:01; Status DC Nitroglycerin (Nitrostat) 0.4 mg O ONCE SL Last administered on 01/06/17 16: 23; Start 01/06/17 at 16:30; Stop 01/06/17 at 16:31; Status DC Hydromorphone HCl (Dilaudid) 1 mg O ONCE IV Last administered on 01/06/17t 16: 35; Start 01/06/17 at 16:30; Stop 01/06/17 at 16:31; Status DC Ondansetron HCl (Zofran) 4 mg O ONCE IV Last administered on 01/06/17t 16:34; Start 01/06/17 at 16:30; Stop 01/06/17 at 16:31; Status DC Progress Progress CBC 8.1, Neut 80.3 RBC 6.06 BUN 22 Heart cath in March 2016 indicated patient had good vascularization. Patient reports feeling better, rates MORILLO 08/28. I discussed CT, labs and EKG with patient. 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
[2017-01-06] MEDS ORDERED: TRIA15CR3 TOP (15:12)
--- OUTSIDE RECORDS SUMMARY | 2017-01-06 15:12 | XMS REPORT | Continuity of Care Document ---
Author Author [facility] Organization [facility] Address Unknown Phone Unavailable Support Name Relationship Address Phone KEVIN CROOKS MD Caregiver [facility] [address] [place] [address] Unavailable HAYDEE BURROWS MD Caregiver [address] [place], [place] [phone] SANTANAIMELDA GRAY Next Of Kin [address] [place] [address] Insurance Providers Payer Name Policy Number Subscriber Name Relationship [employer] Other [id number] Debbie Santana 19 Self Problems Medical Problems Problem Onset Date Status Bursitis of left knee Unknown Active Medications Medication Dose Route Sig Days/Qty Instructions Order Date Discontinued Date Status Ibuprofen 200 Mg PO 12/08/08 04/15/10 Discontinued Aspirin 81 Mg PO DAILY 04/15/10 Active Carvedilol 6.25 Mg PO TWICE A DAY 05/08/09 04/15/10 Discontinued Felda-3 Fatty Acids 2,000 Mg PO TWICE A [...] F (96.8 - 99.1) Temperature (Calculated Celsius) 36.75202 degrees C (36.0 - 37.3) Pulse Rate [...] pyridiumHas specimen been collected/obtained? Y Urine Specific [place] April 06, 2012 6:00pm 1.020 - COMMENT [...] 19, 2012 12:15pm 0.4 % N 0.0-0.5 YB-Ibk-Q-Type Natriuretic Peptide October 19, 2012 12:15pm 605 [...] Encounters Encounter Location Date/Time Departed Emergency Room [facility] 07/10/14 7:38pm Recent Diagnosis
--- OUTSIDE RECORDS SUMMARY | 2017-01-06 15:12 | XMS REPORT | Continuity of Care Document ---
Author Author [facility] Address Unknown Phone Unavailable Allergies Active Description Code Type Severity Reaction Onset Reported/Identified Relationship to Patient Clinical Status Yes niacin NKMA N/A SOA 12/15/2013 Medications Problems Procedures Results Test Result Range Protime (INR) - 06/14/16 08:43 INR 2.1 NA 0.8-1.2 Prothrombin Time Venous seconds Encounters ACCT No. Visit Date/Time Discharge Status Pt. Type Provider Facility Loc./Unit Complaint [id number] 11/03/2013 15:49:00 2013 17:16:00 DIS Emergency [id number] 06/03/2013 20:56:00 2012 23:59:59 CLS Outpatient [id number] 06/03/2013 20:51:00 2012 21:20:00 DIS Emergency
[2017-01-06] MEDS ORDERED: IPRA3AMP AEROSOL (15:13)
[2017-01-06] MEDS ORDERED: PHEN-850 PO (15:13)
--- OUTSIDE RECORDS SUMMARY | 2017-01-06 15:13 | XMS REPORT | Continuity of Care Document ---
Author Author [facility] Organization [facility] Address Unknown Phone Unavailable Support Name Relationship Address Phone KEVIN CROOKS MD Caregiver [facility] [address] [place] [address] Unavailable HAYDEE BURROWS MD Caregiver [address] [place], [place] [phone] SANTANAIMELDA GRAY Next Of Kin [address] [place] [address] Insurance Providers Payer Name Policy Number Subscriber Name Relationship [employer] Other [id number] Debbie Santana 19 Self Problems Medical Problems Problem Onset Date Status Bursitis of left knee Unknown Active Bursitis of left knee Unknown Active Medications Medication Dose Route Sig Days/Qty Instructions Order Date Discontinued Date Status Ibuprofen 200 Mg PO 12/08/08 04/15/10 Discontinued Aspirin 81 Mg PO DAILY 04/15/10 Active Carvedilol 6.25 Mg PO TWICE A DAY 05/08/09 04/15/10 Discontinued Montegut-3 Fatty Acids 2,000 Mg PO TWICE A [...] F (96.8 - 99.1) Temperature (Calculated Celsius) 36.47359 degrees C (36.0 - 37.3) Pulse Rate [...] pyridiumHas specimen been collected/obtained? Y Urine Specific [place] April 06, 2012 6:00pm 1.020 - COMMENT [...] 19, 2012 12:15pm 0.4 % N 0.0-0.5 TT-Rif-C-Type Natriuretic Peptide October 19, 2012 12:15pm 605 [...] Encounters Encounter Location Date/Time Departed Emergency Room [facility] 07/18/14 12:25am Departed Emergency Room [facility] 07/10/14 7:38pm Recent Diagnosis
--- NOTE | 2017-01-06 15:32 | NUR ---
CT Patient out to CT
[2017-01-06 15:33] LABS: BASOPHILS % (AUTO) 0.2 % (0-2); EOSINOPHILS # (AUTO) 0.2 T/MM3 (0-0.5); EOSINOPHILS % (AUTO) 2.3 % (0-4); HCT - HEMATOCRIT 45.4 % (41-53); HGB - HEMOGLOBIN 15.1 GM/DL (13.5-17.5); IMMATURE GRANULOCYTE # (AUTO) 0.03 T/MM3 (0.00-0.03); IMMATURE GRANULOCYTE % (AUTO) 0.4 % (0.0-0.5); LYMPHOCYTES # (AUTO) 0.8 T/MM3 (1-4.8); MEAN CORPUSCULAR HGB 24.9 UUG (26-34); MEAN CORPUSCULAR HGB CONC(MCHC 33.3 GM/DL (31-37); MEAN CORPUSCULAR VOLUME 74.9 UM3 (80-100); MEAN PLATELET VOLUME 8.9 UM3 (9.4-12.4); MONOCYTES # (AUTO) 0.6 T/MM3 (0-0.8); MONOCYTES % (AUTO) 6.8 % (0-9.0); NEUTROPHILS #(AUTO)-ABSOLUTE 6.5 T/MM3 (1.8-7.7); NEUTROPHILS % (AUTO) 80.3 % (33-66); RED BLOOD COUNT 6.06 M/MM3 (4.50-5.90); WBC - WHITE BLOOD COUNT 8.1 T/MM3 (4.5-11.0)
--- NOTE | 2017-01-06 15:37 | NUR ---
CT Patient returns
[2017-01-06 15:42] LABS: ALBUMIN 4.5 G/DL (3.5-5.0); ALBUMIN/GLOBULIN RATIO 1.7 RATIO (1.1-2.2); ALKALINE PHOSPHATASE 70 U/L (38-126); ALT (SGPT) 66 U/L (21-72); ANION GAP 13 MEQ/L (5-15); AST (SGOT) 40 U/L (17-59); BUN/CREATININE RATIO 20 RATIO (6-26); CHLORIDE 102 MEQ/L (98-107); CO2 - CARBON DIOXIDE 27 MEQ/L (22-30); CREATININE 1.1 MG/DL (0.8-1.5); GLOMERULAR FILTRATION RATE 68; GLUCOSE 115 MG/DL (75-110); SODIUM 142 MEQ/L (134-144); TOTAL PROTEIN 7.1 G/DL (6.3-8.2)
[2017-01-06] MEDS ORDERED: NORMAL SALINE 500 ML IV ONE (16:00)
[2017-01-06 16:12] LABS: THYROID STIM HORMONE-TSH 2.18 MIU/L (0.47-4.68)
[2017-01-06] MEDS ORDERED: ONDANSETRON 4mg/2ml INJECTION IV ONE (16:30)
[2017-01-06] MEDS ORDERED: HYDROMORPHONE 2mg/ml INJECTION IV ONE (16:30)
[2017-01-06] MEDS ORDERED: NITROGLYCERIN 0.4 MG SUBLINGUAL TABLET SL ONE (16:30)
[2017-01-06 16:34] LABS: INR 2.26 (0.77-1.03); PROTHROMBIN TIME 24.7 SEC (9.48-12.52)
[2017-01-06 17:55] VITALS: BP 108/65; PULSE 90; RESP 16; TEMP 99.2; O2SAT 95
--- NOTE | 2017-01-06 20:45 | DI ---
Indication: ITS.REASON: headache, blurred vision for brief time, hx. of TIA PROCEDURE: CT HEAD W/O CONTRAST: Encounter: Initial Comparison: May 08, 2008 Technique: Axial CT images through the head were performed without contrast. Iterative Reconstruction dose reducing technique was utilized. FINDINGS: The ventricles are of normal size, shape, and contour for the patient's age. There are scattered areas of low attenuation in the white matter which most likely represent changes from chronic microvascular ischemia. The brainstem, cerebellum, and cerebral hemispheres otherwise have a normal morphology and CT attenuation. There is no evidence of midline displacement. No hemorrhage, signs of acute territorial stroke, mass effect, mass lesions, or edema is evident. Metallic foreign body in the right temporal scalp. The visualized portions of the skull base, midface, and calvarium demonstrate no abnormality. The paranasal sinuses are well aerated and free of significant disease. The tympanic and mastoid cavities appear normal. IMPRESSION: No acute intracranial abnormality or hemorrhage. There is a preliminary report by Woisio. .
== END 2017-01-06 17:55 | disposition home or self-care (01) ==
LOC: ED 14:47
DX: R51 Headache (principal); H53.8 Other visual disturbances; H93.13 Tinnitus, bilateral; R07.89 Other chest pain; I11.0 Hypertensive heart disease with heart failure; I50.9 Heart failure, unspecified
CPT/HCPCS: 36000; 70450; 80053; 84443; 84484; 85025; 85610; 93005; 96374; 96375; 99284; J1170; J2405

== ENCOUNTER 2017-12-22 08:45 | Observation (INO) ==
[2017-12-22] MEDS ORDERED: SALINE FLUSH 10ml SYRINGE IVF PRN (08:54)
--- OUTSIDE RECORDS SUMMARY | 2017-12-22 09:13 | External Medical Summary | Encounter Summary ---
:1955 Author Organization [facility] Address [address] [place] [address] Care Team Providers Name Role Phone Pool Shah MD Primary Care Provider Reason for Visit Reason Comments Records Request Faxed STAT requests to [facility], requested records be faxed to EP Nurse/[id number] Encounter Details Date Type Department Care Team Description 12/11/2017 Telephone [facility] Myra Rojas Records Request (Faxed [address] [place] [address] [facility] [phone] [place], requested records be faxed to EP Nurse/[id number]) Social History Tobacco Use Types Packs/Day Years Used Date Never Assessed Sex Assigned at Date Recorded Not on file as of this encounter Plan of Treatment Not on fileas of this encounter Visit Diagnoses Not on filein this encounter
--- OUTSIDE RECORDS SUMMARY | 2017-12-22 09:13 | External Medical Summary | Encounter Summary ---
:1955 Author Organization [facility] Address [address] [place] [address] Care Team Providers Name Role Phone Maddy Valencia APRN Primary Care Provider Unavailable Encounter Details Date Type Department Care Team Description 12/13/2017 Orders Only [facility] Manisha Singh, ICD (implantable [address] RN cardioverter-defibrilla Won [address] tor) in place ([place] [address] Dx) [phone] Social History Tobacco Use Types Packs/Day Years Used Date Former Smoker Cigarettes 1 10 Quit: 08/19/1991 Smokeless Tobacco: Never Used Alcohol Use Drinks/Week oz/Week Comments No Sex Assigned at Date Recorded Not on file as of this encounter Plan of Treatment Not on fileas of this encounter Results DEVICE EVALUATION - ICD (12/13/2017 9:40 AM) Component Value Ref Range Generator Regulatory Affairs Coordinator Medtronic Generator Model # [id number] Evera XT DR Generator Serial # [id number] Generator Implnat Date 03/07/15 Device Mode DDDR Mode Switch Status On Lower Rate Limit 70 Mode Switch (bpm) 171 Atrial Lead Regulatory Affairs Coordinator Medtronic Atrial Lead Model # 4,076 Atrial Lead Serial # [id number] Atrial Lead Implant Date 09/03/08 RV Lead Regulatory Affairs Coordinator Medtronic RV Lead Model # 6,947 RV Lead Serial # [id number] RV Lead Implant Date 09/03/08 Underlying Rhythm ASVS 37 to 72 bpmwith HI interval ~450 ms. Pt wenckebachs in the 70s. Upper Rate Limit 130 Sensor Rate Limit 120 Pace AV Delay 200 Sense AV Delay 180 VT Detect Rate Tx ATP/Shock VF Detect Rate Tx ATP/Shock # Mode S. Events 0 # of VT Events 1 # of FVT Events 0 # of VF Events 0 # of NSVT Events 1 Single PVSc 376.2/hr Probably mostly TWOS PVC runs 6.4/hr Battery Voltage 2.95 Charge Time 4.0 seconds Defib Lead Imped 47 SVC LEAD IMPED 60 A Sense mv 1.6 A Capture V 5.0 A Capture ms 1.0 A Lead ohms 1,406 RV Sense mv >20 RV Capture V 0.5 RV Capture ms 0.4 RV Lead ohms 551 Counters Clrd Yes VT Detect Rate (bpm) 162 VF Detect Rate (bpm) 200 Device Function WNL Yes Device Reprogram Yes Device Type DDD-ICD Next Remote Check Due Through cardiology practice in [place], [place]. 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 Yes Date of Last Programming 12/13/17 Interrogation? Yes HF Patient Yes ICM Evaluation Yes Remote Monitoring? Yes EP Device Followed By Other EP Device Followed by Name Follows with Cardiology practice in [facility]. Device [place] Transmitter Carelink Express Compatible Specimen Performing Laboratory OTHER OUTSIDE LAB Narrative [12/13/2017 11:32:04 AM - KIMI WARNER] In office programming for dual chamber Medtronic ICD.Device function: Not normal. Pt presented with loss of atrial capture and significant TWOS. I fixed these issues. See below for changes. Presenting EGM shows AP/ VS/IRISH MOSS BLEACHER with loss of atrial capture and TWOS. Events noted since 11/11/17: Atrial:0. Ventricular:One VT/ATP X 1 on 12/08/17. 176 bpm but some beats below detection. Lasted~20 seconds. ATP successful. One other NSVT episode recorded. 11 short V-V intervals. RV lead is stable. Thoracic Impedance trend is stable for this patient. Programming changes: AAIR<=>DDDR to DDDR mode (Pt presented programmed to MVP mode but was paving 94.2% and has very long HI interval ~450 ms). Atrial amplitude 3.5V to 6.0V (fixed) for a 1V safety margin (atrial threshold today 5.0V to 1.0 ms). PAV delay 280 ms to 200 ms. FLASH delay 260 ms to 180 ms. PVAB method Partial to Partial plus because it appeared that there was some oversensing on the atrial channel. Pt also had a lot of non-conducted PACs. No evidence of noise.Atrial rate stabilization, atrial preference pacing and PMOP all turned off. RV sensitivity 0.3 mV to 0.9 mV. (Pt still had TWOS at 0.6 mV with bipolar and tip to coil sensing). Atrial pacing impedance has shown a gradual increase from ~1000 ohms 05/2016 to 1406 ohms today. Pt stated he feels a lot better after changes made today. 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 Reviewed with BREANA in clinic and routed check for cosign. __ in this encounter Visit Diagnoses Diagnosis ICD (implantable cardioverter-defibrillator) in place - Primary
--- OUTSIDE RECORDS SUMMARY | 2017-12-22 09:13 | External Medical Summary | Encounter Summary ---
:1955 Author Organization [facility] Address [address] [place] [address] Care Team Providers Name Role Phone Maddy Valencia APRN Primary Care Provider Unavailable Reason for Referral Status Reason Specialty Diagnoses / Referred By Contact Referred To Procedures Contact New Request Procedures Kris, REQUEST FOR Марина Reyna MD CARDIOLOGY [address] [facility] [address] [place] [address] Reason for Visit Reason Comments Atrial fibrillation Referred by Dr. Pool Shah Device Check ICD New Patient Consult, Test & Treat (Urgent) Status Reason Specialty Diagnoses / Referred By Referred To Procedures Contact Contact New Request Specialty Cardiology Diagnoses Atrial fibrillation, unspecified type (HCC) Kris Shah, MD Марина House MD Required [address] [facility], [facility] [address] [place] [id number] Phone: Fax: Encounter Details Date Type Department Care Team Description 12/13/2017 Office Visit [facility] Pool Shah MD [address], [address] [place] [address] [phone] Atrial fibrillation Cardiology Марина Ponce MD [address] [facility] [address] [place] [address] [phone] ([place] [address] [address] Shah); [address] Device Check (ICD ); [place], [place] New Patient [address] Social History Tobacco Use Types Packs/Day Years Used Date Former Smoker Cigarettes 1 10 Quit: 08/19/1991 Smokeless Tobacco: Never Used Alcohol Use Drinks/Week oz/Week Comments No Sex Assigned at Date Recorded Not on file as of this encounter Last Filed Vital Signs Vital Sign Reading Time Taken Blood Pressure 106/64 12/13/2017 9:32 AM CDT Pulse 85 12/13/2017 9:32 AM CDT Temperature - - Respiratory Rate - - Oxygen Saturation - - Inhaled Oxygen Concentration - - Weight 134 kg (295 lb 8 oz) 12/13/2017 9:32 AM CDT Height 177.8 cm (5' 10") 12/13/2017 9:32 AM CDT Body Mass Index 42.4 12/13/2017 9:32 AM CDT in this encounter Instructions Patient Instructions - Manisha Singh, RAVEN - 12/13/2017 9:00 AM CDT1. Start Mexiletine 200 mg three times daily. 2. Schedule a heart cath with Dr. Shah in [place]. 3. Plan for pacemaker procedure: right atrial lead replacement and left atrial lead placement with Dr. Lund in [place]. 4. We will contact you to schedule a ventricular tachycardia ablation. This will need to occur afterthe above two procedures. Please let us know when these are scheduled so that we may schedule your ablation. 5. Follow up with Dr. Ponce in 3 months or sooner if needed. In order to provide you the best care possible we ask that you follow up as below: For NON-URGENT questions please contact us through your [facility] account. For all medication refills please contact your pharmacy or send a request through [employer] [facility]. For all questions that may need to be addressed urgently please call the nursing triage line at [phone] Saturday - Saturday 8-5 only. Please leave a detailed message with your name, date of , andreason for your call. To schedule an appointment call [phone]. Please allow 10-15 business days for the results of any testing to be reviewed. Please call our office if you have not heard from a nurse within this time frame.in this encounter Progress Notes Марина Ponce MD - 12/13/2017 9:00 AM CDTFormatting of this note may be different from the original. I have reviewed history and examined the patient. I had discussed the case fellow and I agree with the fellow's assessment and plan as above and amended as needed. Марина Ponce MD Date of Service: 12/13/2017 Ra Villasenor is a 62 y.o. male. HPI I had the pleasure of seeing Mr. Villasenor today in our electrophysiology office today who was referredto us by Dr. Shah on for further evaluation and treatment of his atrial fibrillation and persistent ongoing chest pain. Mr. Villasenor is a very pleasant 62-year-old male with past medical history of coronary artery disease status post single artery bypass surgery status post multiple stents, atrial fibrillation/atrial flutter status post CTI ablation in [place] [address] Lund, hypertrophic cardiomyopathy status post septal myomectomy, status post mitral valve replacement with a mechanical valve, obstructive sleep apnea on CPAP, status post ICD pacemaker who comes in today to our clinic with complaints of persistent ongoing chest pain for last several months which gets worse with exertion. Patient also states that he was admitted to 3 weeks ago in the ER and on device interrogation was toldthat he was in A. fib for several hours on and off. In the past also he has been on and off into A.fib and had an ablation done by Dr. Lund but was mainly the right atrial side due to the presence of mechanical mitral valve. Patient had a cardiac cath done in MarchApril 2015 after an abnormal stress test and at that time cardiac echo was essentially normal with no evidence of restenosis or stent blockage. But patient continues to have persistent exertional chest pain and also exertional shortness of breath and alsocomplains of orthopnea and PND. P atient also complains of episodes of lightheadedness and near syncope but denies any passing out episode. There were no vitals filed for this visit. There is no height or weight on file to calculate BMI. Past Medical History Patient Active Problem List Diagnosis Date Noted CAD S/P percutaneous coronary angioplasty ICD (implantable cardioverter-defibrillator) in place Hypertrophic cardiomyopathy (HCC) Hypertension Transient ischemic attack Ventricular tachycardia (HCC) ANDREA (obstructive sleep apnea) Elevated liver enzymes Dyspnea on exertion Review of Systems Constitution: Positive for malaise/fatigue and weight gain. HENT: Negative. Eyes: Negative. Cardiovascular: Positive for chest pain, dyspnea on exertion, irregular heartbeat, near-syncope, orthopnea and paroxysmal nocturnal dyspnea. Respiratory: Positive for cough, shortness of breath and sleep disturbances due to breathing. Endocrine: Positive for cold intolerance, heat intolerance and polyuria. Hematologic/Lymphatic: Negative. Skin: Negative. Musculoskeletal: Positive for muscle weakness. Gastrointestinal: Positive for bloating. Genitourinary: Negative. Neurological: Positive for difficulty with concentration, disturbances in coordination, excessive daytime sleepiness, dizziness, focal weakness, light- headedness and loss of balance. Psychiatric/Behavioral: Negative. Allergic/Immunologic: Negative. Physical Exam General Appearance: resting comfortably, no acute distress Neck Veins: neck veins are flat, neck veins are not distended Chest Inspection: chest is normal in appearance, ICD in situ with a well-healed scar Respiratory Effort: breathing is unlabored, no respiratory distress Auscultation/Percussion: lungs clear to auscultation, no rales, rhonchi, or wheezing Cardiac Rhythm: regular rhythm and regular rate Cardiac Auscultation: Normal S1 & S2, no S3 or S4, no rub Murmurs: no cardiac murmurs heard Lower Extremity Edema: no lower extremity edema Abdominal Exam: soft, non-tender, no masses, bowel sounds normal Gait & Station: normal balance and gait Muscle Strength: normal strength and tone Orientation: oriented to time, place and person Affect & Mood: appropriate and sustained affect Other: moves all extremities Cardiovascular Studies EKG: Shows atrial paced rhythm with some left bundle branch block pattern. Device interrogation reveals increased thresholds and impedance of right atrial lead with oversensing of T waves. There are episodes of nonsustained ventricular tachycardia and also ventricular tachycardia's which have been appropriately shocked. No evidence of A. fib as such Problems Addressed Today Encounter Diagnoses Name Primary? Ventricular tachycardia (HCC) Yes Assessment and Plan CAD status post CABG,multiple drug-eluting stents with persistent chest pain: Given his history of coronary artery disease status post bypass and multiple stents and episodes of ventricular tachycardia on device interrogation, it would not be unreasonable to go ahead and do a cardiac cath to rule outany underlying progression of coronary artery disease. So we would want his liquid compounder do a cardiac cath on him is the first thing. Ventricular tachycardia patient has a history of septal myomectomy: Which can explain his likely region of ventricular tachycardia as but we would still need to rule out underlying coronary artery disease progression as a possible cause of ventricular tachycardia. If his cardiac catheter is normal then we would like to go ahead and schedule him for VT ablation. Meanwhile we would like to put him onmexiletine 200 mg 3 times daily. Atrial fibrillation/atrial flutter status post CTI ablation in 2015: Right atrial lead dysfunction: At this point of time his atrial fibrillation is not much of an issue. We have changed the settings of his ICD device as it is over sensing T waves and possibly reading as atrial fibrillation episodes. But we would like for his physical integration practitioner replaced his right atrial lead because of increasing impedance and thresholds with oversensing of T waves and would also want himplace a left ventricular lead for better synchronization of his ventricular contractions. That willalso help his overall pump function with improvement in his shortness of breath and fluid retention. Consulting issues were addressed we would follow-up with him to schedule him for a possible VT ablation. So much for allowing us to take care of this very nice patient. We would like to see him back in 3-4 months, unless otherwise needed. Current Medications (including today's revisions) No current outpatient prescriptions on file. in this encounter Plan of Treatment Scheduled Tests Name Priority Associated Diagnoses Order Schedule ECG 12-LEAD Routine Ventricular tachycardia (HCC) Ordered: 12/13/2017 as of this encounter Results ECG/QRS (12/13/2017) Component Value Ref Range QRS DURATION 148 Specimen Performing Laboratory OTHER OUTSIDE LAB in this encounter Visit Diagnoses Diagnosis Ventricular tachycardia (HCC) - Primary Paroxysmal ventricular tachycardia
--- OUTSIDE RECORDS SUMMARY | 2017-12-22 09:13 | External Medical Summary | Clinical Summary ---
:1955 Author Organization [facility] Address [address] [place] [address] Care Team Providers Name Role Phone Maddy Valencia APRN Primary Care Provider Unavailable Source Comments Some departments are not documenting in the electronic medical record. If you do not see the information that you expected, contact Release of Information in the Health Information Management department at [phone] for further assistance in locating additional records.[facility] Allergies Active Allergy Reactions Severity Noted Date Comments David RODRÍGUEZ Medium 12/13/2017 Current Medications Prescription Sig. Disp. Refills Start Date End Date Status potassium chloride SR Take 40 mEq by Active (K-DUR) 20 mEq tablet mouth three times daily. Take with a meal and a full glass of water. furosemide (LASIX) 80 Take 80 mg by Active mg tablet mouth twice daily. warfarin (COUMADIN) 4 Take 4 mg by Active mg tablet mouth. Mon, Wed, Fri warfarin (COUMADIN) 5 Take 5 mg by Active mg tablet mouth. Sat, Sun, Tue, Thur lisinopril (PRINIVIL, Take 2.5 mg by Active ZESTRIL) 2.5 mg tablet mouth daily. sotalol (BETAPACE) 80 Take 80 mg by Active mg tablet mouth twice daily. atorvastatin (LIPITOR) Take 40 mg by Active 20 mg tablet mouth daily. escitalopram oxalate Take 20 mg by Active (LEXAPRO) 20 mg tablet mouth daily. metFORMIN (GLUCOPHAGE) Take 500 mg by Active 500 mg tablet mouth. 2 tabs by mouth in the AM and 1 tab in the PM aspirin EC 81 mg Take 81 mg by Active tablet mouth daily. Take with food. umeclidinium-vilantero Inhale 1 puff by Active l (ANORO ELLIPTA) mouth into the 62.5-25 mcg/actuation lungs daily. inhaler diltiazem XR (DILT-XR) Take 120 mg by Active 120 mg capsule mouth daily. albuterol-ipratropium Inhale 3 mL Active (DUO-NEB, DUO-VENT) solution by 0.5 mg-3 mg(2.5 mg nebulizer as base)/3 mL nebulizer directed as solution Needed for Wheezing. phenazopyridine Take 200 mg by Active (PYRIDIUM) 200 mg mouth three tablet times daily as needed for Pain. Take after meals for up to 2 days. Triamcinolone Apply topically Active Acetonide 0.5 % oint to affected area twice daily as needed. mexiletine (MEXITIL) Take 1 capsule 270 capsule 3 12/13/2017 Active 200 mg capsule by mouth three times daily. Active Problems Problem Noted Date CAD S/P percutaneous coronary angioplasty ICD (implantable cardioverter-defibrillator) in place Hypertrophic cardiomyopathy (HCC) Hypertension Transient ischemic attack Ventricular tachycardia (HCC) ANDREA (obstructive sleep apnea) Elevated liver enzymes Dyspnea on exertion Encounters Date Type Specialty Care Team Description 12/13/2017 Hospital Encounter Cardiology Марина Ponce MD 12/13/2017 Office Visit Cardiology Pool Shah MD Atrial fibrillation Kris, (Referred by MD Pool Mariano); Device Check (ICD ); New Patient 12/13/2017 Orders Only Cardiology Manisha Singh RN ICD (implantable cardioverter-defibrilla tor) in place (Primary Dx) 12/11/2017 Telephone Cardiology Myra Rojas Records Request (Faxed STAT requests to [facility], requested records be faxed to Nurse/[phone]) 12/11/2017 Orders Only Cardiology Jody Monique Atrial fibrillation, unspecified type (HCC) (Primary Dx) from Last 3 Months Family History Medical History Relation Name Comments Coronary Artery Disease Father Hypertension Father Coronary Artery Disease Mother Hypertension Mother Relation Name Status Comments Father Alive Mother Social History Tobacco Use Types Packs/Day Years Used Date Former Smoker Cigarettes 1 10 Quit: 08/19/1991 Smokeless Tobacco: Never Used Alcohol Use Drinks/Week oz/Week Comments No Sex Assigned at Date Recorded Not on file Last Filed Vital Signs Vital Sign Reading [...] Mass Index 42.4 12/13/2017 9:32 AM CDT Plan of Treatment Health Maintenance Due Date Last Done Comments HEPATITIS C SCREENING 1955 PHYSICAL (COMPREHENSIVE) EXAM 1963 PERTUSSIS VACCINE 1967 HIV SCREENING 1971 TETANUS VACCINE 1973 COLORECTAL CANCER SCREENING 2006 SHINGLES VACCINE 2016 INFLUENZA VACCINE 05/19/2018 06/01/2002, 06/03/1999 Results DEVICE EVALUATION - ICD (12/13/2017 9:40 AM) Component Value Ref Range Generator Structural Engineering Drafting Officer Medtronic Generator Model # [id number] Evera XT DR Generator Serial # [id number] Generator Implnat Date 03/07/15 Device Mode DDDR Mode Switch Status On Lower Rate Limit 70 Mode Switch (bpm) 171 Atrial Lead Structural Engineering Drafting Officer Medtronic Atrial Lead Model # 4,076 Atrial Lead Serial # [id number] Atrial Lead Implant Date 09/03/08 RV Lead Structural Engineering Drafting Officer Medtronic RV Lead Model # 6,947 RV Lead Serial # [id number] RV Lead Implant Date 09/03/08 Underlying Rhythm ASVS 37 to 72 bpmwith [place] interval ~450 ms. Pt wenckebachs in the [...] Remote Check Due Through cardiology practice in [place], [place]. Ao Voltage 6.0 AO Pulse Width 1.0 RV Voltage 2.0A RV Pulse Width 0.4 Estimated Longevity 2.1 to 3.8 years Initial Rhythm Presented AP/ VS/SAUSAGE SMOKER with loss of atrial capture and TWOS Device Implanted By Dr Aditya Lund Pacemaker Dependant No Programming? Yes Date of Last Programming 12/13/17 Interrogation? Yes HF Patient Yes ICM Evaluation Yes Remote Monitoring? Yes EP Device Followed By Other EP Device Followed by Name Follows with Cardiology practice in [facility]. Device [place] Transmitter Carelink Express Compatible Specimen Performing Laboratory OTHER OUTSIDE LAB Narrative [12/13/2017 11:32:04 AM - KIMI WARNER] In office programming for dual chamber Medtronic ICD.Device function: Not normal. Pt presented with loss of atrial capture and significant TWOS. I fixed these issues. See below for changes. Presenting EGM shows AP/ VS/SAUSAGE SMOKER with loss of atrial capture and TWOS. [...] was paving 94.2% and has very long [place] interval ~450 ms). Atrial amplitude 3.5V to [...] after changes made today. Device/Remote followed by manager intensive care unit in [place], [place]. Reviewed with BREANA in clinic and routed check for cosign. __ ECG/QRS (12/13/2017) Component Value Ref Range QRS DURATION 148 Specimen Performing Laboratory OTHER OUTSIDE LAB from Last 3 Months
--- OUTSIDE RECORDS SUMMARY | 2017-12-22 09:13 | External Medical Summary | Continuity of Care Document ---
:1955 Author Organization [facility] Care Team Providers Name Role Phone [employer] Unavailable Unavailable Encounters Location Location Encounter Encounter Reason Attending ADM DC Status Source Details Type Number For Provider Date Date Visit OUTPATIENT [id number] CLARE 12/13 12/13 Active [facility]2017 [facility] O CLARE Active [facility]
--- OUTSIDE RECORDS SUMMARY | 2017-12-22 09:13 | External Medical Summary | Encounter Summary ---
:[address] [facility] Address [address] [facility] [address] [place] [address] Care Team Providers Name Role Phone Maddy Valencia APRN Primary Care Provider Unavailable Encounter Details Date Type Department Care Team Description 12/13/2017 Hospital Encounter [facility] Kris, [address] JEANETTE Reyna MD [address] [place], [place] [address] [address] [place] [address] [phone] Social History Tobacco Use Types Packs/Day Years Used Date Former Smoker Cigarettes 1 10 Quit: 08/19/1991 Smokeless Tobacco: Never Used Alcohol Use Drinks/Week oz/Week Comments No Sex Assigned at Date Recorded Not on file as of this encounter Medications at Time of Discharge Medication Sig. Disp. Refills Start Date End Date albuterol-ipratropium Inhale 3 mL (DUO-NEB, DUO-VENT) 0.5 solution by mg-3 mg(2.5 mg base)/3 mL nebulizer as nebulizer solution directed as Needed for Wheezing. aspirin EC 81 mg tablet Take 81 mg by mouth daily. Take with food. atorvastatin (LIPITOR) 20 Take 40 mg by mouth mg tablet daily. diltiazem XR (DILT-XR) 120 Take 120 mg by mg capsule mouth daily. escitalopram oxalate Take 20 mg by mouth (LEXAPRO) 20 mg tablet daily. furosemide (LASIX) 80 mg Take 80 mg by mouth tablet twice daily. lisinopril (PRINIVIL, Take 2.5 mg by ZESTRIL) 2.5 mg tablet mouth daily. metFORMIN (GLUCOPHAGE) 500 Take 500 mg by mg tablet mouth. 2 tabs by mouth in the AM and 1 tab in the PM mexiletine (MEXITIL) 200 Take 1 capsule by 270 capsule 3 12/13/2017 mg capsule mouth three times daily. phenazopyridine (PYRIDIUM) Take 200 mg by 200 mg tablet mouth three times daily as needed for Pain. Take after meals for up to 2 days. potassium chloride SR Take 40 mEq by (K-DUR) 20 mEq tablet mouth three times daily. Take with a meal and a full glass of water. sotalol (BETAPACE) 80 mg Take 80 mg by mouth tablet twice daily. Triamcinolone Acetonide Apply topically to 0.5 % oint affected area twice daily as needed. umeclidinium-vilanterol Inhale 1 puff by (ANORO ELLIPTA) 62.5-25 mouth into the mcg/actuation inhaler lungs daily. warfarin (COUMADIN) 4 mg Take 4 mg by mouth. tablet Sat, Sat, Sat warfarin (COUMADIN) 5 mg Take 5 mg by mouth. tablet Sat, Sun, Tue, Thur as of this encounter Plan of Treatment Not on fileas of this encounter Results DEVICE EVALUATION - ICD (12/13/2017 9:40 AM) Component Value Ref Range Generator Parts Department Manager [employer]onic Generator Model # [id number] Evera XT DR Generator Serial # [id number] Generator Implnat Date 03/07/15 Device Mode DDDR Mode Switch Status On Lower Rate Limit 70 Mode Switch (bpm) 171 Atrial Lead Parts Department Manager [employer] Atrial Lead Model # 4,076 Atrial Lead Serial # [id number] Atrial Lead Implant Date 09/03/08 RV Lead Parts Department Manager [employer] RV Lead Model # 6,947 RV Lead Serial # [id number] RV Lead Implant Date 09/03/08 Underlying Rhythm ASVS 37 to 72 bpmwith MI interval ~450 ms. Pt wenckebachs in the [...] Remote Check Due Through cardiology practice in [place], [place]. Ao Voltage 6.0 AO Pulse Width 1.0 RV Voltage 2.0A RV Pulse Width 0.4 Estimated Longevity 2.1 to 3.8 years Initial Rhythm Presented AP/ VS/SPLIT LEATHER MOSSER with loss of atrial capture and TWOS Device Implanted By Dr Aditya Lund Pacemaker Dependant No Programming? Yes Date of Last Programming 12/13/17 Interrogation? Yes HF Patient Yes ICM Evaluation Yes Remote Monitoring? Yes EP Device Followed By Other EP Device Followed by Name Follows with Cardiology practice in [facility]. Device [place] Transmitter Carelink Express Compatible Specimen Performing Laboratory OTHER OUTSIDE LAB Narrative [12/13/2017 11:32:04 AM - KIMI WARNER] In office programming for dual chamber Medtronic ICD.Device function: Not normal. Pt presented with loss of atrial capture and significant TWOS. I fixed these issues. See below for changes. Presenting EGM shows AP/ VS/SPLIT LEATHER MOSSER with loss of atrial capture and TWOS. [...] was paving 94.2% and has very long MI interval ~450 ms). Atrial amplitude 3.5V to [...] after changes made today. Device/Remote followed by storeroom keeper in [place], [place]. Reviewed with BREANA in clinic and routed check for cosign. __ in this encounter Visit Diagnoses Diagnosis ICD (implantable cardioverter-defibrillator) in place
--- OUTSIDE RECORDS SUMMARY | 2017-12-22 09:14 | External Medical Summary | Encounter Summary ---
:1955 Author Organization [facility] Address [address] [place] [address] Care Team Providers Name Role Phone Pool Shah MD Primary Care Provider Reason for Referral Consult, Test & Treat (Urgent) Status Reason Specialty Diagnoses / Referred By Referred To Procedures Contact Contact New Request Specialty Cardiology Diagnoses Atrial fibrillation, unspecified type (HCC) Kris Shah, MD Марина House MD Required [address], [address] [place] [address] Phone: Fax: Encounter Details Date Type Department Care Team Description 12/11/2017 Orders Only MAC-REFERRAL Jody Monique Atrial fibrillation, unspecified type (HCC) (Primary Dx) Social History Tobacco Use Types Packs/Day Years Used Date Never Assessed Sex Assigned at Date Recorded Not on file as of this encounter Plan of Treatment Scheduled Referrals Name Priority Associated Diagnoses Order Schedule AMB REFERRAL TO ADULT STAT Atrial fibrillation, Ordered: 12/11/2017 CARDIOLOGY unspecified type (HCC) as of this encounter Visit Diagnoses Diagnosis Atrial fibrillation, unspecified type (HCC) - Primary
--- NOTE | 2017-12-22 09:17 | Emergency Department Report ---
Neuro HPI - General Chief Complaint: Medical Emergency Stated Complaint: poss tia Time Seen by Provider: 12/22/17 08:54 Source: patient, RN notes reviewed, old records reviewed Mode of arrival: ambulatory Limitations: no limitations - History of Present Illness HPI Narrative: 62yo man presents to the ER for evaluation of neuro deficits. Pt developed abrupt onset of left upper extremity paresthesias and weakness 15min prior to arrival in the ER. The paresthesias and weakness were progressive and began to involve his LLE by the time of his arrival. Pt has had similar sx on the contralateral side in the past - this was dx'ed as a TIA. When he had the TIA, his sx involved dysphagia and expressive aphasia. Today, he has had no dysarthria or aphasia. Pt has A-fib and is on coumadin. Last INR was 1.9. Onset (ago): minute(s) (15) Timing confirmed by: spouse Location: left arm, left leg History of same: Yes (On contralateral) Severity: similar to previous episodes Quality: tingling Relieving factors: none Exacerbating factors: none - Related Data Home Medications: Home Medications Medication Instructions Recorded Confirmed Triamcinolone Acetonide 1 applicatio TOP BID PRN #0 01/06/17 12/22/17 Metformin [Glucophage] 500 mg PO HS 03/05/17 12/22/17 Metformin [Glucophage] 1,000 mg PO QAM 07/09/17 12/22/17 Umeclidinium Brm/Vilanterol Tr 1 each IH DAILY 07/09/17 12/22/17 [Anoro Ellipta 62.5-25 Mcg INH] Warfarin [Coumadin] 5 mg PO 6XW 07/09/17 12/22/17 Furosemide [Lasix 80 mg Tab] 80 tab PO BID 11/04/17 12/22/17 Warfarin Sodium [Coumadin] 4 mg PO TH 11/04/17 12/22/17 dilTIAZem HCl [Diltiazem HCl] 120 mg PO DAILY 11/04/17 12/22/17 Escitalopram [Lexapro] 20 mg PO DAILY 12/06/17 12/22/17 Albuterol/Ipratropium [Duoneb] 1 unit AEROSOL Q6H PRN 12/22/17 12/22/17 Aspirin [Ecotrin] 81 mg PO DAILY 12/22/17 12/22/17 Atorvastatin [Lipitor] 20 mg PO HS 12/22/17 12/22/17 Lisinopril [Zestril] 2.5 mg PO DAILY 12/22/17 12/22/17 Mexiletine [Mexitil] 200 mg PO TID 12/22/17 12/22/17 Phenazopyridine HCl 200 mg PO TID PRN 12/22/17 12/22/17 Potassium Chloride 40 meq PO TID 12/22/17 12/22/17 Previous Rx's Medication Instructions Recorded Sotalol [Betapace] 80 mg PO ACBID #60 tab 07/25/17 Allergies/Adverse Reactions: Allergies Allergy/AdvReac Type Severity Reaction Status Date / Time venlafaxine Allergy Severe Chest Pain Verified 12/22/17 09:23 niacin AdvReac Intermediate NAUSEA/VOMITING, Verified 12/22/17 09:23 RASH Review of Systems All systems: reviewed and negative except as stated Neurological: Reports: as per HPI, headache, weakness, paresthesias. Denies: numbness, confusion, abnormal gait, vertigo PFSH Patient Stated Medical History Cerebrovascular Accident Yes Transient Ischemic Attacks ( Yes: RIGHT SIDE 2010 TIA) Other HEENT Yes: LASIK Angina Yes Cardiac Arrhythmia Yes Congestive Heart Failure Yes Hypertension Yes Myocardial Infarction Yes Valvular Heart Disease Yes Chronic Obstructive Pulmonary Yes Disease (COPD) Sleep Apnea Yes: Home CPAP in room Diabetes Mellitus Type 2 Yes Other GI Yes: DIVERTICULITIS Hx Kidney Stones Yes Clotting Problems Yes: ON WARFARIN Osteoarthritis Yes Other Musculoskeletal Yes: KNEE Other Infectious Yes: STAPH INFECTION Depression Yes Clinic Medical History (Last Reviewed 05/02/17 @ 08:03 by MARTITA Doll) ANDREA (obstructive sleep apnea) (Chronic Medical) COPD (chronic obstructive pulmonary disease) (Chronic Medical) High cholesterol (Chronic Medical) Heart attack (Chronic Medical) Coronary artery disease (Chronic Medical) Angina at rest (Chronic Medical) Pacemaker (Chronic Medical) Mitral valve prolapse (Chronic Medical) Hypertrophic cardiomyopathy (Chronic Medical) Hypertension (Chronic Medical) Congestive heart failure (Chronic Medical) Surgical History: Heart stents. Defibrillator Orthopaedic surgery. Bypass Surg. Removed Pacemaker/defib. Back surg L2-L4- staph inf. Mild Stroke. Heart cath. atrial ablation. PMM,PLM LIMITED SYNOVECTOMY, CHONDROPLASTY ANA PAULA BALDWIN 03-20-17 Family History: Family History (Last Reviewed 05/02/17 @ 08:03 by MARTITA Doll) Mother COPD (chronic obstructive pulmonary disease) Heart attack Heart failure High blood pressure Father Non-melanoma skin cancer High blood pressure Sleep apnea - Social History Smoking status: Former smoker second hand exposure: No Substance use type: does not use Alcohol intake: former Alcohol intake frequency: holidays/special occasions only Household members: spouse Does patient use chewing tobacco?: No Physical Exam - Limitations Limitations: no limitations - General General appearance: alert, in no apparent distress, obese (Morbid) - Normal Exams: Head:: Normocephalic without trauma Eyes:: Pupils are PERRLA w/ EOMI, No scleral icterus, irritation, or foreign bodies noted ENMT:: No facial trauma, nasal exudates, pharyngeal erythema, or exudates are noted Neck:: Full range of motion, without adenopathy Lymphatic:: No lymphadenopathy Musculoskeletal:: No tenderness, or deformity noted Neurological:: Patient is alert, and oriented Psychiatric:: Patient exhibits, appropriate attention - Chest Chest inspection: Present: normal inspection, symmetric chest wall rise. Absent : tenderness, rash - Respiratory Respiratory exam: Present: normal lung sounds bilaterally. Absent: respiratory distress, wheezes, stridor, prolonged expiratory phase, crackles - Cardiovascular Cardiovascular exam: Present: irregular rhythm, normal heart sounds. Absent: regular rate (Irregular rate), normal rhythm, rubs, gallop, clicks - Abdominal Exam Abdominal exam: Present: soft, normal bowel sounds. Absent: distention, tenderness, guarding, rebound, rigidity Course - Consultations Consultation #1: Tele-neurology: Will evaluate pt and give recommendations. No indication for neurointervention at this time. Recommends CTA (recent ICD placement) and echocardiogram (upcoming procedure). Would continue coumadin for now - keeping INR therapeutic. Time: 09:13 Consultation #2: Hospitalist: Will admit for further eval/treatment. Time: 09:49 Vital Signs Temperature 98.2 F 12/22/17 08:45 Pulse Rate 85 12/22/17 08:45 Respiratory Rate 20 12/22/17 08:45 Blood Pressure 139/74 12/22/17 08:45 Pulse Oximetry 97 12/22/17 08:45 Temperature 98.2 F 12/22/17 08:45 Pulse Rate 70 12/22/17 09:30 Respiratory Rate 18 12/22/17 09:30 Blood Pressure 131/74 12/22/17 09:30 Pulse Oximetry 96 12/22/17 09:17 Neuro Symptoms/Deficit - MDM Narrative Medical decision making narrative: Pt with recurrent TIA sx, but on contralateral side. Sx now resolving. Discussed case with neurologist - recommendations documented. Discussed case with hospitalist, who has agreed to admit for obs/further eval. - Differential Diagnosis Likely: subarachnoid hemorrhage, peripheral neuropathy, cerebrovascular accident , transient cerebral ischemia - Medical Records Attestation: I reviewed the patient's medical records. - Lab Data Attestation: I reviewed the patient's lab results. Result diagrams: 12/22/17 08:55 12/22/17 08:55 Lab Results 12/22/17 12/22/17 12/22/17 Range/Units 08:51 08:55 08:55 WBC 9.2 (4.5-11.0) T/MM3 RBC 6.11 H (4.50-5.90) M/MM3 Hgb 14.5 (13.5-17.5) GM/DL Hct 45.4 (41-53) % MCV 74.3 L (80-100) UM3 MCH 23.7 L (26-34) UUG MCHC 31.9 (31-37) GM/DL RDW Std Deviation 48.2 (36.9-50.2) FL Plt Count 259 (130-400) T/MM3 MPV 8.4 L (9.4-12.4) UM3 Immature Gran % (Auto) 0.4 (0.0-0.5) % Neut % (Auto) 71.7 H (33-66) % Lymph % (Auto) 14.0 L (23-45) % Mcduffie % (Auto) 9.0 (0-9.0) % Eos % (Auto) 4.2 H (0-4) % Baso % (Auto) 0.7 (0-2) % Neut # (Auto) 6.6 (1.8-7.7) T/MM3 Lymph # (Auto) 1.3 (1-4.8) T/MM3 Mcduffie # (Auto) 0.8 (0-0.8) T/MM3 Eos # (Auto) 0.4 (0-0.5) T/MM3 Baso # (Auto) 0.1 (0-0.2) T/MM3 Abs Immat Gran (auto) 0.04 H (0.00-0.03) T/MM3 INR 2.01 H (0.92-1.18) APTT 30.6 (24-36) SEC Turbidity (0-20) Sodium (134-144) MEQ/L Potassium (3.6-5) MEQ/L Chloride (98-107) MEQ/L Carbon Dioxide (22-30) MEQ/L Anion Gap (5-15) meq/L BUN (9-20) MG/DL Creatinine (0.8-1.5) mg/dL GFR Calculation BUN/Creatinine Ratio (6-26) RATIO Glucose (75-110) MG/DL Glucometer 92 (65-110) mg/dL Calculated Osmolality (261-280) MOSM/KG Calcium (8.4-10.2) MG/DL Total Bilirubin (0.20-1.30) MG/DL Icterus Index (0-7) AST (17-59) U/L ALT (1-50) U/L Alkaline Phosphatase (38-126) U/L Total Protein (6.3-8.2) g/dL Albumin (3.5-5.0) g/dL Globulin (2.4-3.6) G/DL Albumin/Globulin Ratio (1.1-2.2) RATIO Specimen Hemolysis (0-25) 05/06/18 Range/Units 08:55 WBC (4.5-11.0) T/MM3 RBC (4.50-5.90) M/MM3 Hgb (13.5-17.5) GM/DL Hct (41-53) % MCV (80-100) UM3 MCH (26-34) UUG MCHC (31-37) GM/DL RDW Std Deviation (36.9-50.2) FL Plt Count (130-400) T/MM3 MPV (9.4-12.4) UM3 Immature Gran % (Auto) (0.0-0.5) % Neut % (Auto) (33-66) % Lymph % (Auto) (23-45) % Mcduffie % (Auto) (0-9.0) % Eos % (Auto) (0-4) % Baso % (Auto) (0-2) % Neut # (Auto) (1.8-7.7) T/MM3 Lymph # (Auto) (1-4.8) T/MM3 Mcduffie # (Auto) (0-0.8) T/MM3 Eos # (Auto) (0-0.5) T/MM3 Baso # (Auto) (0-0.2) T/MM3 Abs Immat Gran (auto) (0.00-0.03) T/MM3 INR (0.92-1.18) APTT (24-36) SEC Turbidity < 20 (0-20) Sodium 142 (134-144) MEQ/L Potassium 4.5 (3.6-5) MEQ/L Chloride 100 (98-107) MEQ/L Carbon Dioxide 30 (22-30) MEQ/L Anion Gap 12 (5-15) meq/L BUN 18.0 (9-20) MG/DL Creatinine 1.0 (0.8-1.5) mg/dL GFR Calculation 76 BUN/Creatinine Ratio 18 (6-26) RATIO Glucose 103 (75-110) MG/DL Glucometer (65-110) mg/dL Calculated Osmolality 275 (261-280) MOSM/KG Calcium 10.4 H (8.4-10.2) MG/DL Total Bilirubin 1.20 (0.20-1.30) MG/DL Icterus Index < 2 (0-7) AST 53 (17-59) U/L ALT 75 H (1-50) U/L Alkaline Phosphatase 93 (38-126) U/L Total Protein 7.6 (6.3-8.2) g/dL Albumin 4.6 (3.5-5.0) g/dL Globulin 3.0 (2.4-3.6) G/DL Albumin/Globulin Ratio 1.5 (1.1-2.2) RATIO Specimen Hemolysis < 15 (0-25) - Radiology Data Attestation: I reviewed the patient's radiology results. CT Head: FINDINGS: Brain: Prominent sulci. Patchy hypodensity of the cerebral white matter which are nonspecific but likely secondary to microangiopathic changes. Ventricles: The ventricles are prominent secondary to diffuse volume loss/ atrophy. Bones/joints: Normal. No acute fracture. Soft tissues: Metallic fragment in the soft tissues overlying the right temporal region. Sinuses: Normal as visualized. No acute sinusitis. Mastoid air cells: Normal as visualized. No mastoid effusion. IMPRESSION: Chronic age related changes but no evidence of acute intracranial pathology. Remainder of findings as described above. - EKG Data EKG #1 EKG attestation: Yes: I reviewed and interpreted this EKG. EKG results narrative: Electronically paced. Disposition Clinical Impression: TIA (transient ischemic attack) Disposition: 02 To OBS [facility] Print Language: Malay Condition: Improved Prescriptions: No Action Triamcinolone Acetonide 1 applicatio TOP BID PRN #0 PRN Reason: PRN ORDERS Metformin [Glucophage] 1,000 mg PO QAM Furosemide [Lasix 80 mg Tab] 80 tab PO BID Warfarin Sodium [Coumadin] 4 mg PO TH dilTIAZem HCl [Diltiazem HCl] 120 mg PO DAILY Escitalopram [Lexapro] 20 mg PO DAILY Albuterol/Ipratropium [Duoneb] 1 unit AEROSOL Q6H PRN PRN Reason: Shortness Of Air Aspirin [Ecotrin] 81 mg PO DAILY Lisinopril [Zestril] 2.5 mg PO DAILY Mexiletine [Mexitil] 200 mg PO TID Potassium Chloride 40 meq PO TID Phenazopyridine HCl 200 mg PO TID PRN PRN Reason: Prn Orders Metformin [Glucophage] 500 mg PO HS Umeclidinium Brm/Vilanterol Tr [Anoro Ellipta 62.5-25 Mcg INH] 1 each IH DAILY Warfarin [Coumadin] 5 mg PO 6XW Sotalol [Betapace] 80 mg PO ACBID #60 tab Atorvastatin [Lipitor] 20 mg PO HS Referrals: Maddy Valencia APRN [Primary Care Provider] - Time of Disposition: 10:00 - Seen By: physician
[2017-12-22] MEDS: NS 1,000 ML IV SCH ×2 (10:06→12:00)
--- NOTE | 2017-12-22 10:18 | CT Scan Report ---
Indication: Left-sided deficits PROCEDURE: CT head/brain wo con: Encounter: Initial Comparison: July 09, 2017 Technique: Axial CT images through the head were performed without contrast. Iterative Reconstruction dose reducing technique was utilized. FINDINGS: Metallic foreign body in the right temporal scalp. The ventricles are of normal size, shape, and contour for the patient's age. There are scattered areas of low attenuation in the white matter which most likely represent changes from chronic microvascular ischemia. The brainstem, cerebellum, and cerebral hemispheres otherwise have a normal morphology and CT attenuation. There is no evidence of midline displacement. No hemorrhage, signs of acute territorial stroke, mass effect, mass lesions, or edema is evident. The visualized portions of the skull base, midface, and calvarium demonstrate no abnormality. The paranasal sinuses are well aerated and free of significant disease. The tympanic and mastoid cavities appear normal. IMPRESSION: No acute intracranial abnormality or hemorrhage. There is a preliminary report by virtual radiologic. .
[2017-12-22 10:50] VITALS: BMI 41.9
[2017-12-22] MEDS ORDERED: HYDROCODONE/APAP 7.5 MG/325 MG TABLET PO PRN (11:38)
[2017-12-22] MEDS ORDERED: ACETAMINOPHEN 325 MG TABLET PO PRN (11:39)
[2017-12-22] MEDS ORDERED: ONDANSETRON 4 MG/2 ML INJECTION IVP PRN (11:39)
[2017-12-22] MEDS ORDERED: ALBUTEROL/IPRATROPIUM 2.5mg-0.5mg/3ml NEB AEROSOL PRN (11:39)
[2017-12-22] MEDS ORDERED: WARFARIN 5 MG TABLET PO SCH (11:45)
--- NOTE | 2017-12-22 12:06 | History & Physical Report ---
History of Present Illness Date: 12/22/17 (PCP: Dr. Gloria Jennings) Chief complaint: Left sided weakness HPI: Ra is a very pleasant 62 yo WM who presented to the ER due to acute symptoms of left sided weakness and numbness. He has a prior history of TIA on the right side, so when symptoms developed at 0900, he immediately came into the ER. He was seen by teleneurology, who recommended AGAINST tPA due to chronic anticoagulation. Patient reports that his symptoms began in his left arm, and later progressed to the left leg. With prior CTA, he had expressive aphasia, but has not experienced that with this event. He and both deny any facial droop or speech difficulties during this event. He reports a right temporal headache currently. No vision changes. He is able to give a reliable history today. He does have a long history of cardiac disease- He was seen in the last week by Dr. Vallecillo (sp?) in for secondary cardiology evaluation. He has a cracked Atrial lead, which was impeding the impulse. He reports the atrial lead was adjusted up in regards to signal strength. With that, he has felt much better and has lost about 15 pounds with much improved diuresis. He reports a diagnosis of cardiomyopathy, last documented EF was about 70%. He follows with Dr. Shah- Dr. Vallecillo recommended that he undergo another HC to ensure there is not another blockage. Following that, he is to see Dr. Lund and undergo a lead change of the atrial lead with a second ventricular lead being placed so that PPM voltage can be decreased. Following both of those procedures, then Dr. Vallecillo will perform a ventricular ablation to help with ventricular function. Patient does have a known mechanical mitral valve. He reports that he recently adjusted his diet & incorporated more greens, and his INR has been subtherapeutic for the last 2-3 weeks. Last week INR was 1.9- now 2.1. He reports that during prior episode of TIA/Stroke, his INR was under 2.5 at that time as well. We reviewed the risk of subtherapeutic INR in regards to stroke. He will likely need aggressive lovenox bridge to therapeutic INR in the future. He reports in regards to other symptoms, he has been suffering from a persistent cough over the last week. "Dry" cough. Chest pain is chronic, with no worsening. He reports abdominal distention is improved in the last week. No unilateral edema or tenderness. He does not have a history of DVT or PE. Review of Systems All systems PM: 10-point ROS was reviewed, no additional remarkable complaints except - Constitutional Constitutional: Present: headache(s), weight loss (15 pounds last week.). Absent: fever(s) - EENMT Eyes: Absent: change in vision, loss of vision Balance: Absent: vertigo, ataxia - Cardiovascular Cardiovascular: Present: chest pain (chronic), palpitations, heart murmur. Absent: syncope, orthopnea, edema Rhythm: Present: abnormal rhythm Vascular: Absent: pedal edema (Improved. ) - Respiratory Respiratory: Present: cough. Absent: hemoptysis, wheezing, chest congestion - Gastrointestinal Gastrointestinal: Absent: abdominal pain, constipation, diarrhea, vomiting - Genitourinary Genitourinary: Present: urinary hesitancy - Musculoskeletal Musculoskeletal: Present: abnormal gait (Left leg weakness, acute), limited range of motion - Neurological Neurological: Present: abnormal gait, abnormal movements, focal weakness, headache(s), numbness (left first 3 digits and radiating up arm. ). Absent: abnormal speech, dizziness Past Medical History Medical History: Medical History (Last Reviewed 12/22/17 @ 11:54 by Gabriela Elizabeth APRN) ANDREA (obstructive sleep apnea) (Chronic) COPD (chronic obstructive pulmonary disease) (Chronic) High cholesterol (Chronic) Heart attack (Chronic) Coronary artery disease (Chronic) Angina at rest (Chronic) Pacemaker (Chronic) Mitral valve prolapse (Chronic) Hypertrophic cardiomyopathy (Chronic) Hypertension (Chronic) Congestive heart failure (Chronic) Medical History Updates: Atrial Fib. Hx of DCCV. Cardiomyopathy. HFpEF. Hx of TIA vs. Stroke. DM2 Surgical History: Heart stents. Defibrillator. Orthopedic surgery. Bypass Surg. Removed Pacemaker/defib. Back surg L2-L4- staph inf. Mild Stroke. Heart cath. atrial ablation. PMM,PLM LIMITED SYNOVECTOMY, CHONDROPLASTY ANA PAULA [place] 03-20-17 Family History: Family History (Last Reviewed 12/22/17 @ 11:54 by Gabriela Elizabeth APRN) Mother COPD (chronic obstructive pulmonary disease) Heart attack Heart failure High blood pressure Father Non-melanoma skin cancer High blood pressure Sleep apnea Family History: As Above - Social History Smoking status: Former smoker Substance use type: does not use Housing: house Household members: spouse Current occupational status: retired Does patient use chewing tobacco?: No Current residence: Apartment/Private Home Medications Home Medications Medication Instructions Recorded Confirmed Type Triamcinolone Acetonide 1 applicatio TOP BID PRN #0 01/06/17 12/22/17 History Metformin [Glucophage] 500 mg PO HS 03/05/17 12/22/17 History Metformin [Glucophage] 1,000 mg PO QAM 07/09/17 12/22/17 History Umeclidinium Brm/Vilanterol Tr 1 each IH DAILY 07/09/17 12/22/17 History [Anoro Ellipta 62.5-25 Mcg INH] Warfarin [Coumadin] 5 mg PO 6XW 07/09/17 12/22/17 History Furosemide [Lasix 80 mg Tab] 80 tab PO DAILY 11/04/17 12/22/17 History Warfarin Sodium [Coumadin] 4 mg PO TH 11/04/17 12/22/17 History dilTIAZem HCl [Diltiazem HCl] 120 mg PO DAILY 11/04/17 12/22/17 History Escitalopram [Lexapro] 20 mg PO DAILY 12/06/17 12/22/17 History Albuterol/Ipratropium [Duoneb] 1 unit AEROSOL Q6H PRN 12/22/17 12/22/17 History Aspirin [Ecotrin] 81 mg PO DAILY 12/22/17 12/22/17 History Atorvastatin [Lipitor] 20 mg PO HS 12/22/17 12/22/17 History Furosemide [Lasix] 40 mg PO 1730 12/22/17 12/22/17 History Lisinopril [Zestril] 2.5 mg PO DAILY 12/22/17 12/22/17 History Mexiletine [Mexitil] 200 mg PO TID 12/22/17 12/22/17 History Phenazopyridine HCl 200 mg PO TID PRN 12/22/17 12/22/17 History Potassium Chloride 40 meq PO BID 12/22/17 12/22/17 History Allergies Allergy/AdvReac Type Severity Reaction Status Date / Time venlafaxine Allergy Severe Chest Pain Verified 12/22/17 09:23 niacin AdvReac Intermediate NAUSEA/VOMITING, Verified 12/22/17 09:23 RASH Exam Vital Signs: Temperature 98.2 F 12/22/17 08:45 Pulse Rate 69 12/22/17 10:30 Respiratory Rate 16 12/22/17 10:30 Blood Pressure 127/58 12/22/17 10:30 Pulse Oximetry 95 12/22/17 10:15 Paced: 100% Height/Weight/BMI: Height 1.78 m Weight 132.6 kg Body Mass Index 41.9 - Constitutional Present: no acute distress, obese, cooperative - Routine HEENT Exam Head: Present: normocephalic, atraumatic Eye: Present: EOMI, PERRL, normal accommodation ENT: Present: mucous membranes moist - Routine Neck Exam Present: supple. Absent: JVD, tenderness, swelling - Routine Respiratory Exam Present: CTA bilaterally. Absent: dyspnea, decreased breath sounds, rales, rhonchi, wheezes, crackles - Routine Cardiovascular Exam Present: RRR, S1, S2, click - Routine Abdominal Exam Present: soft, normoactive bowel sounds, non distended, non tender - Routine Extremities Exam Present: non tender. Absent: no edema, Slick's sign, tenderness, extremity cold to touch Comments: He does have bilateral PVD noted on exam - Routine Skin Exam Present: intact, dry, warm - Routine Neurological Exam Present: alert, oriented X3, CN II-XII intact, motor deficit (left leg and left arm. ), moving all extremities, normal speech. Absent: pronator drift, altered mental status, hemineglect Left arm, health education coordinator strength 4/5. Slow, but intact finger-thumb testing left hand. Left leg- some weakness, difficulty lifting off bed. He reports arm strength is much improved. - Routine Psychiatric Exam Present: normal affect, normal thought process, cooperative Results - Labs CBC & Chem 7: 12/22/17 08:55 12/22/17 08:55 - Imaging and Cardiology CT scan - head Additional comments: CT IMPRESSION: No acute intracranial abnormality or hemorrhage. There is a preliminary report by virtual radiologic. . Past EKG reviewed by me- 100% AV Paced Assessment and Plan (1) Stroke-like symptoms Current visit: Yes Status: Acute Assessment and Plan: Impression: 62 yo WM with 1. Stroke like Symptoms 2. Hx of TIA 3. s/p PPM 4. CAD 5. Mechanical MVR 6. Subtherapeutic INR 7. Cough 8. HFpEF/Cardiomyopathy (EF 75% 2015) 9. DM2. 10. Atrial Fib Plan: 12/22/17 Observation status- Dr. Cool Will need to increase anticoagulation to full strength Lovenox until INR is > 2.5 I have stressed the need with pt. to keep INR above 2.5 to prevent risk of stroke given this is his second event. He did have prior carotid sono, which was fairly benign (2009)- add CTA neck to imaging. Most recent echo reviewed that is in chart. We cannot do an MRI given PPM. Will obtain a CTA of the head in AM. Assess lipid panel. Will need to hold metformin given need for CTA. Monitor BG. Check CXR due to cough. Telemetry. Home meds as appropriate. Serial exams/Neuro checks. Tx. MORILLO. He is already demonstrating improvement. Pt is Full Code, but does not want prolonged care if futility is obvious. Family is at bedside and participates in history. DVT Prophylaxis: Lovenox, Coumadin Resuscitation Status: Full Code (Pt. desires full code. He does have DPOA and Living Will in place) - Physician Narrative Physician: Ibis Cool MD Narrative: Date: 12/22/17 Time: 1819 I have independently evaluated and examined this patient. I reviewed the chart, the patient's history, and the EMPLOYEE WELLNESS/FITNESS COORDINATOR/PA's documented findings as above. We discussed and formulated the assessment and plan as above with additions as below: Mr. Villasenor describes onset of numbness involving the left thumb, index finger, long digit, thenar aspect of the left hand extending onto the adjacent left forearm followed by sensation of clumsiness in the left hand and vague weakness in the left arm this morning and subsequent development of similar symptoms in the medial left calf with transient weakness in the left leg. Weakness has largely resolved and numbness is subsiding and now less evident and more restricted in area. Patient denies any difficulty with speech or vision. He has been ambulatory ambulate with assistance since arriving on the medical unit. He transiently had headache earlier but it subsided. He denies chest pain or palpitations. Early report that he was on sotalol and mexiletine is incorrect-he was recently switched from sotalol to mexiletine. NAD, alert, fluent speech Stasis changes/hyperpigmentation below the knees bilaterally, no edema. Altered sensation present medial aspect of the left calf and radial aspect of the left forearm/hand with decreased cold perception in the same region. 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 I don't detect any difference between distal power in the lower extremities but left proximal power is a hint weaker than right. CT head reviewed by myself revealing no acute intracranial abnormality; metallic foreign body present right temporal scalp with artifact. White matter changes consistent with small vessel disease. EKG also reviewed by myself revealing electronic pacemaker Chest x-ray reveals borderline cardiomegaly, prior sternotomy, dual-chamber pacemaker, no infiltrate or heart failure. Left sided hemiparesis/paresthesias-consistent with TIA versus CVA; subtherapeutic INR, therapeutic anticoagulation initiated as above. For CTA head and neck. Will discuss with Dr. Shah in a.m. - may benefit from BOZENA now although I suspect one is planned for the near future based on history. Patient's is his DPOA, daughter secondary. CODE STATUS reviewed with the patient-full code; living will discussed in some detail. Case discussed with Dr. De León Hospital Course Summary Disclaimer: The visit summary below is not to be considered part of the above Progress Note. Hospital Course: Impression: 62 yo WM with 1. Stroke like Symptoms 2. Hx of TIA 3. s/p PPM 4. CAD 5. Mechanical MVR 6. Subtherapeutic INR 7. Cough 8. HFpEF/Cardiomyopathy (EF 75% 2015) 9. DM2. 10. Atrial Fib Plan: 12/22/17 Observation status- Dr. Cool Will need to increase anticoagulation to full strength Lovenox until INR is > 2.5 I have stressed the need with pt. to keep INR above 2.5 to prevent risk of stroke given this is his second event. He did have prior carotid sono, which was fairly benign (2009)- add CTA neck to imaging. Most recent echo reviewed that is in chart. We cannot do an MRI given PPM. Will obtain a CTA of the head in AM. Assess lipid panel. Will need to hold metformin given need for CTA. Monitor BG. Check CXR due to cough. Telemetry. Home meds as appropriate. Serial exams/Neuro checks. Tx. MORILLO. He is already demonstrating improvement. Pt is Full Code, but does not want prolonged care if futility is obvious. Family is at bedside and participates in history.
[2017-12-22] MEDS ORDERED: ENOXAPARIN - PHARMACY CONSULT MC ONE (12:26)
[2017-12-22] MEDS ORDERED: WARFARIN - PHARMACY CONSULT MC ONE (12:26)
[2017-12-22] MEDS: ENOXAPARIN 150 MG/ML INJECTION SQ SCH ×2 (12:31→20:58)
[2017-12-22] MEDS: MEXILETINE 200 MG PO SCH ×2 (12:31→20:59)
[2017-12-22] MEDS ORDERED: FUROSEMIDE 80 MG TABLET PO SCH (14:00)
[2017-12-22] MEDS ORDERED: WARFARIN 2.5 MG TABLET PO ONE (14:02)
--- NOTE | 2017-12-22 14:55 | Pharmacy Consult ---
Pharmacy Consult-Warfarin - Consult Information COUMADIN CONSULT (Initial): Dx: Mechanical valve (targe INR of 2.5-3.5) Baseline INR = 2.01. Patient received Warfarin 5mg at home + 2.5mg at [facility] today. NOTE MADE IN "DOCUMENT" IN EMR. Thank you.
--- NOTE | 2017-12-22 14:58 | Pharmacy Consult ---
Pharmacy Consult-Lovenox - Consult Information ENOXAPARIN CONSULT: Today's SCr = 1.0 mg/dl. Calculated CrCl = 106 mL/min. Start Enoxaparin @ 130mg SQ q12h to bridge INR until therapeutic with warfarin. Thank you.
[2017-12-22] MEDS ORDERED: FUROSEMIDE 40 MG TABLET PO SCH (17:00)
[2017-12-22] MEDS ORDERED: --POM--ATORVASTATIN 20 MG TABLET PO SCH (21:00)
[2017-12-23] MEDS ORDERED: SALINE FLUSH 10ml SYRINGE ONE (06:54)
[2017-12-23] MEDS ORDERED: IOHEXOL 350mg/ml 75ml INJECTION ONE (06:54)
--- NOTE | 2017-12-23 07:34 | Pharmacy Consult ---
Pharmacy Consult-Warfarin - Laboratory Information 12/23/17 12/23/17 05:19 05:19 Hgb 13.9 Hct 43.6 INR 2.34 H - Consult Information INR below target range. Warfarin 7.5mg po ordered for today. Lovenox 1mg/kg q12h used as bridge until INR therapeutic. Thank you.
--- NOTE | 2017-12-23 08:09 | XRay Report ---
INDICATION: Cough, hx HF PROCEDURE: CHEST 2-VIEWS UPRIGHT (PA & LAT) Encounter: Initial COMPARISON: November 04, 2017 FINDINGS: The lungs are stable and grossly clear. There is no pleural effusion or pneumothorax. Left pacemaker defibrillator. Poststernotomy changes and cardiac valve replacement. The heart size, mediastinal contours and pulmonary vascularity are unchanged. IMPRESSION: Stable chest without acute cardiopulmonary disease. .
[2017-12-23] MEDS ORDERED: UMECLIDINIUM BRM PO SCH (09:00)
[2017-12-23] MEDS ORDERED: DILTIAZEM CD 120 MG PO SCH (09:00)
[2017-12-23] MEDS ORDERED: FUROSEMIDE 80 MG PO SCH ×2 (09:00→17:00)
[2017-12-23] MEDS ORDERED: ASPIRIN *EC* 81 MG TABLET PO SCH (09:00)
[2017-12-23] MEDS ORDERED: LISINOPRIL 2.5 MG PO SCH (09:00)
[2017-12-23] MEDS ORDERED: VILANTEROL TR PO SCH (09:00)
[2017-12-23] MEDS: MEXILETINE 200 MG PO SCH ×2 (09:26→13:15)
[2017-12-23] MEDS: ENOXAPARIN 150 MG/ML INJECTION SQ SCH (09:28)
--- NOTE | 2017-12-23 11:48 | CT Scan Report ---
EXAM: CT angio head/neck HISTORY: STroke COMPARISON: No prior studies available for comparison. A routine CT angiogram of the neck and the [place] was performed with IV contrast administration. 73 cc of Omnipaque 350 was administered for the exam. Coronal and sagittal reconstruction imaging was utilized. 3D reconstruction images were obtained. The current CT scan was performed using radiation dose-reduction techniques. FINDINGS: The angiogram of the head : The major arterial contributories of the anterior and posterior circulation of the [place] appear intact. There is no evidence of discrete focal narrowing, aneurysmal dilatation or AV malformation. CT angiogram of the neck: Right carotid artery: The right common carotid artery is mildly tortuous but appears of normal caliber throughout its course to the level of the right carotid artery bifurcation. There is mild plaque formation seen at the right carotid artery bifurcation and proximal right ICA without hemodynamic significant narrowing by NASCET criteria. The remaining extracranial segments of the right ICA appear mildly tortuous but remain normal caliber without significant plaque formation or hemodynamic significant narrowing by NASCET criteria. Left carotid artery: The left common carotid artery is moderately tortuous appearing of normal caliber throughout its course to the level of the left carotid artery bifurcation. There is mild calcific plaque formation at the left carotid artery bifurcation and proximal left ICA without hemodynamic significant narrowing by NASCET criteria. The remaining extracranial segments of the left ICA appear mildly tortuous but remain normal caliber without significant plaque formation or hemodynamic significant narrowing by NASCET criteria. The vertebral arteries appeared patent throughout their course with a dominant left vertebral artery. There is no evidence of significant plaque or stenosis of the right or left vertebral arteries is no evidence of vertebral artery dissection. There is no evidence of hemodynamic significant narrowing of either the right or left vertebral artery by NASCET criteria. There is a 10 mm polyp or retention cyst along the floor of the left maxillary sinus. The remaining visualized paranasal sinuses are clear as are the mastoid air cells. IMPRESSION: 1. The CT angiography of the [place] appears satisfactory. 2. Mild plaque formation is seen at the carotid artery bifurcations and proximal ICA regions bilaterally without hemodynamic significant narrowing by NASCET criteria. 3. The common carotid arteries and ICAs appear tortuous bilaterally. 4. No evidence of vertebral artery dissection, significant plaque or hemodynamic significant narrowing by NASCET criteria. 4. 10 mm polyp versus retention cyst on the floor of the left maxillary sinus. .
[2017-12-23] MEDS ORDERED: WARFARIN 7.5 MG TABLET PO SCH (12:00)
[2017-12-23] MEDS: ESCITALOPRAM 20 MG PO SCH ×2 (12:24→13:15)
[2017-12-23 15:33] VITALS: BP 133/79; PULSE 83; RESP 18; TEMP 98.1; O2SAT 95
--- NOTE | 2017-12-23 18:46 | Discharge Summary ---
Discharge Information Date of admission: 12/22/17 09:56 Anticipated date of discharge: 12/23/17 Attending Physician: Ibis Cool MD Primary care physician: Maddy Valencia APRN - Discharge Diagnosis (1) TIA (transient ischemic attack) Status: Acute TIA Left paresthesias, resolving Transient left hemiparesis, minor Hx of TIA, right paresthesias Subtherapeutic INR Atrial Fib Mechanical MVR CAD HFpEF/Cardiomyopathy (EF 75% 2015) DM2. s/p PPM Obstructive sleep apnea - Laboratory Labs: 12/23/17 05:19 12/23/17 05:19 - Radiology Radiology: Head CT without contrast on 12/22/17: Metallic foreign body in the right temporal scalp. The ventricles are of normal size, shape, and contour for the patient's age. There are scattered areas of low attenuation in the white matter which most likely represent changes from chronic microvascular ischemia. The brainstem, cerebellum, and cerebral hemispheres otherwise have a normal morphology and CT attenuation. There is no evidence of midline displacement. No hemorrhage, signs of acute territorial stroke, mass effect, mass lesions, or edema is evident. The visualized portions of the skull base, midface, and calvarium demonstrate no abnormality. The paranasal sinuses are well aerated and free of significant disease. The tympanic and mastoid cavities appear normal. IMPRESSION: No acute intracranial abnormality or hemorrhage. ----- Chest x-ray on 12/22/17: The lungs are stable and grossly clear. There is no pleural effusion or pneumothorax. Left pacemaker defibrillator. Poststernotomy changes and cardiac valve replacement. The heart size, mediastinal contours and pulmonary vascularity are unchanged. IMPRESSION: Stable chest without acute cardiopulmonary disease. ----- CTA head/neck with contrast on 12/23/17: The angiogram of the head : The major arterial contributories of the anterior and posterior circulation of the [place] appear intact. There is no evidence of discrete focal narrowing, aneurysmal dilatation or AV malformation. CT angiogram of the neck: Right carotid artery: The right common carotid artery is mildly tortuous but appears of normal caliber throughout its course to the level of the right carotid artery bifurcation. There is mild plaque formation seen at the right carotid artery bifurcation and proximal right ICA without hemodynamic significant narrowing by NASCET criteria. The remaining extracranial segments of the right ICA appear mildly tortuous but remain normal caliber without significant plaque formation or hemodynamic significant narrowing by NASCET criteria. Left carotid artery: The left common carotid artery is moderately tortuous appearing of normal caliber throughout its course to the level of the left carotid artery bifurcation. There is mild calcific plaque formation at the left carotid artery bifurcation and proximal left ICA without hemodynamic significant narrowing by NASCET criteria. The remaining extracranial segments of the left ICA appear mildly tortuous but remain normal caliber without significant plaque formation or hemodynamic significant narrowing by NASCET criteria. The vertebral arteries appeared patent throughout their course with a dominant left vertebral artery. There is no evidence of significant plaque or stenosis of the right or left vertebral arteries is no evidence of vertebral artery dissection. There is no evidence of hemodynamic significant narrowing of either the right or left vertebral artery by NASCET criteria. There is a 10 mm polyp or retention cyst along the floor of the left maxillary sinus. The remaining visualized paranasal sinuses are clear as are the mastoid air cells. IMPRESSION: 1. The CT angiography of the [place] appears satisfactory. 2. Mild plaque formation is seen at the carotid artery bifurcations and proximal ICA regions bilaterally without hemodynamic significant narrowing by NASCET criteria. 3. The common carotid arteries and ICAs appear tortuous bilaterally. 4. No evidence of vertebral artery dissection, significant plaque or hemodynamic significant narrowing by NASCET criteria. 4. 10 mm polyp versus retention cyst on the floor of the left maxillary sinus. History of Present Illness HPI: Ra is a very pleasant 62 yo WM who presented to the ER due to acute symptoms of left sided weakness and numbness. He has a prior history of TIA on the right side, so when symptoms developed at 0900, he immediately came into the ER. He was seen by teleneurology, who recommended AGAINST tPA due to chronic anticoagulation. Patient reports that his symptoms began in his left arm, and later progressed to the left leg. With prior CTA, he had expressive aphasia, but has not experienced that with this event. He and both deny any facial droop or speech difficulties during this event. He reports a right temporal headache currently. No vision changes. He is able to give a reliable history today. He does have a long history of cardiac disease- He was seen in the last week by Dr. Vallecillo (sp?) in for secondary cardiology evaluation. He has a cracked Atrial lead, which was impeding the impulse. He reports the atrial lead was adjusted up in regards to signal strength. With that, he has felt much better and has lost about 15 pounds with much improved diuresis. He reports a diagnosis of cardiomyopathy, last documented EF was about 70%. He follows with Dr. Shah- Dr. Vallecillo recommended that he undergo another HC to ensure there is not another blockage. Following that, he is to see Dr. Lund and undergo a lead change of the atrial lead with a second ventricular lead being placed so that PPM voltage can be decreased. Following both of those procedures, then Dr. Vallecillo will perform a ventricular ablation to help with ventricular function. Patient does have a known mechanical mitral valve. He reports that he recently adjusted his diet & incorporated more greens, and his INR has been subtherapeutic for the last 2-3 weeks. Last week INR was 1.9- now 2.1. He reports that during prior episode of TIA/Stroke, his INR was under 2.5 at that time as well. We reviewed the risk of subtherapeutic INR in regards to stroke. He will likely need aggressive lovenox bridge to therapeutic INR in the future. He reports in regards to other symptoms, he has been suffering from a persistent cough over the last week. "Dry" cough. Chest pain is chronic, with no worsening. He reports abdominal distention is improved in the last week. No unilateral edema or tenderness. He does not have a history of DVT or PE. 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 For more details refer to the complete medical record. Hospital course: Mr. Villasenor was hospitalized on observation basis after presenting with left upper and lower extremity paresthesias with mild weakness in conjunction with subtherapeutic INR. He had similar symptoms previously on the right side in conjunction with subtherapeutic INR. He was started on therapeutic Lovenox; warfarin dose has recently been increased as an outpatient. It was intended that he received 7.5 mg of warfarin on the date of admission however nursing misinterpreted order and he received only the 5 mg he took prior to arrival at the hospital. He received 7.5 mg of warfarin on 12/23. INR on 12/[address] of the head was without evidence of acute pathology; because the patient has pacemaker MRI could not be obtained and instead he underwent CTA of the head and neck demonstrating no evidence of acute event or occlusive disease. Outpatient BO[facility] will be coordinated with anticipated cardiac catheterization in the near future. Atorvastatin dose was increased from 20 mg daily to 40 mg daily. Patient was seen by PT/OT on 12/23 and no deficits were identified that required further therapies. On 12/23 patient reports he's "a whole lot better"with minimal residual numbness along the radial aspect of his hand and wrist. He has no residual weakness and no other concerns. He ambulated well with therapy and feels stable for discharge. He is supposed to have cardiac catheterization in the near future for evaluation prior to procedure in [place]. He'll call Dr. Shah's office to coordinate timing of follow-up office appointment and to coordinate BOZENA and cardiac catheterization. The patient is advised to continue Lovenox injections at 1 mg/kg subcutaneous twice a day pending INR above 2.5. He'll remain on 5 mg warfarin daily and have an INR checked on 12/25. Resuscitation Status: Full Code Discharge Plan - Discharge Disposition Discharge Date: 12/23/17 Disposition: 01 Discharged Home, Self-Care *Condition: Improved Reason For Visit (Visit label in EMR): TIA - Discharge Medications *Discharge Medications: New Enoxaparin [Lovenox] 150 mg SQ Q12H #20 syringe Atorvastatin [Lipitor] 1 tab PO HS #30 tab Continue Triamcinolone Acetonide 1 applicatio TOP BID PRN #0 PRN Reason: PRN ORDERS Metformin [Glucophage] 1,000 mg PO QAM Furosemide [Lasix 80 mg Tab] 80 tab PO DAILY Warfarin Sodium [Coumadin] 4 mg PO TH dilTIAZem HCl [Diltiazem HCl] 120 mg PO DAILY Escitalopram [Lexapro] 20 mg PO DAILY Albuterol/Ipratropium [Duoneb] 1 unit AEROSOL Q6H PRN PRN Reason: Shortness Of Air Aspirin [Ecotrin] 81 mg PO DAILY Lisinopril [Zestril] 2.5 mg PO DAILY Mexiletine [Mexitil] 200 mg PO TID Potassium Chloride 40 meq PO BID Phenazopyridine HCl 200 mg PO TID PRN PRN Reason: Prn Orders Furosemide [Lasix] 40 mg PO 1730 Metformin [Glucophage] 500 mg PO HS Umeclidinium Brm/Vilanterol Tr [Anoro Ellipta 62.5-25 Mcg INH] 1 each IH DAILY Warfarin [Coumadin] 5 mg PO 6XW Discontinued Atorvastatin [Lipitor] 20 mg PO HS - Discharge Packet/Instructions *Diet: Diabetic, low-salt, low-fat *Activity: As tolerates *Pain Management/Treatment: Tylenol if needed *Wound Care: Not applicable Additional Instructions: Continue Lovenox shots twice daily until INR is above 2.5, would be better if INR was at 3. Each syringe of Lovenox has 150 mg; you need to waist 20 mg and then inject the remaining 130 mg. Continue taking 5 mg warfarin daily; have INR rechecked on Monday 12/25. While hospitalized you received 5 mg of warfarin on 12/22 and 7.5 mg on 12/23. Increase atorvastatin dose from 20 mg daily at bedtime to 40 mg. New prescription provided although you can continue current supply taking 2 pills at one time. *Expected Signs/Symptoms: I anticipate that the minor residual numbness in your left hand will clear up over the next 1-2 days. *Notify Physician if: Weakness returns or worsens, you have trouble swallowing or trouble with your speech, chest pain, difficulty breathing. *During Business Hours Contact: Maddy Valencia's office or Dr. Shah's office *After Business Hours Contact: Call [facility] at [phone] and ask that the on-call physician be paged *Pending Lab/Results: No Pending Lab - Referrals/Follow Up *Referrals/Follow Up: Pool Shah MD [Physician] - Gloria Jennings DO [Physician] - - Patient Handouts Patient Handouts: Transient Ischemic Attack (GEN) - Dismissal Complete Discharge Instructions are:: Complete Physician Narrative - Narrative Attestation Narrative: Date: 12/23/17 Time: 1840
== END 2017-12-23 17:00 | disposition home or self-care (01) ==
LOC: ED 08:45 → MED 08:45
PROVIDERS: ADMIT Internal Medicine; ATTEND Internal Medicine